=== PATIENT | female | born 1930 | race Caucasian/White ===

== ENCOUNTER 2017-03-05 21:24 | Observation (INO) | payer MEDICARE ==
[~2017-03-05] VITALS: Ht 149.9 cm; Wt 78.6 kg
[~2017-03-05 21:24] MED LIST: ACET1TAB17 PO; ACET65TA OR; CEFD1CAP8 PO; CEPH2CAP PO; COLA100C2 PO; COUM1TAB14 PO; COUM2TAB22 PO; COUM6TAB PO; COUMADIN PO; DEMA20TA PO; GLIP5TAB8 PO; GLUC5TAB3 OR; KLOR1TAB77 PO; LANO0.1211 PO; LISI2.5T PO; MAGN500T2 PO; OMEP20TA PO; OMEP20TA7 PO; PERC5TAB12 PO; POTA20TA PO; PRAV40TA PO; PRAV80TA PO; SENO8.6T10 PO; SYMB80AE INH; TORS20TA2 PO; omnicef PO
[2017-03-05] MEDS ORDERED: METF500T13 PO (21:39)
[2017-03-05] MEDS ORDERED: CALC600T57 PO (21:39)
[2017-03-05] MEDS ORDERED: VITA500079 PO (21:39)
[2017-03-05 22:28] LABS: BASO % 0.3 % (0.0-1.0); EOS # 0.2 K/mm3 (0.0-0.50); LARGE UNSTAINED CELL # 0.5 K/mm3 (0.0-0.4); LARGE UNSTAINED CELL % 4.6 % (0.0-4.0); LYMPH # 2.4 K/mm3 (1.5-4.5); MEAN CORPUSCULAR HEMOGLOBIN 30.7 pg (27.0-33.0); MEAN CORPUSCULAR HGB CONC 31.7 g/dl (32.0-36.5); MEAN CORPUSCULAR VOLUME 97.1 fl (80.0-96.0); MONO # 0.9 K/mm3 (0.0-0.8); MONO % 8.3 % (0.0-5.0); NEUTROPHILS # 6.4 K/mm3 (1.8-7.7); NEUTROPHILS % 61.8 % (36.0-66.0); PLATELET COUNT, AUTOMATED 346 k/mm3 (150-450); RED CELL DISTRIBUTION WIDTH 13.2 % (11.5-14.5); WHITE BLOOD COUNT 10.3 K/mm3 (4.0-10.0)
[2017-03-05] MEDS ORDERED: NS 500 ML IV ONE (22:30)
[2017-03-05 22:34] LABS: ANION GAP 6 MEQ/L (8-16); BLOOD UREA NITROGEN 25 MG/DL (7-18); CALCIUM LEVEL 8.2 MG/DL (8.8-10.2); CARBON DIOXIDE LEVEL 34 MEQ/L (21-32); CHLORIDE LEVEL 99 MEQ/L (98-107); CREATININE FOR GFR 0.92 MG/DL (0.55-1.02); GLOMERULAR FILTRATION RATE > 60.0 (>32); GLUCOSE, FASTING 100 MG/DL (83-110); POTASSIUM SERUM 3.9 MEQ/L (3.5-5.1); SODIUM LEVEL 139 MEQ/L (136-145)
[2017-03-06] MEDS ORDERED: ACETAMINOPHEN 325 MG TAB PO ONE (00:15)
[2017-03-06] MEDS ORDERED: GLIM1TAB PO (00:18)
[2017-03-06] MEDS ORDERED: CALCTAB52 PO (00:18)
[2017-03-06] MEDS ORDERED: ALBU17IN INH (00:18)
[2017-03-06] MEDS ORDERED: POTA10CA PO (00:18)
[2017-03-06] MEDS ORDERED: VITA100066 PO (00:18)
[2017-03-06] MEDS ORDERED: NS 1,000 ML IV SCH (02:39)
[2017-03-06] MEDS ORDERED: ACETAMINOPHEN TAB 650MG DOSE (2X325MG) PO PRN (02:45)
[2017-03-06] MEDS ORDERED: BISACODYL 5 MG TAB PO PRN (02:45)
[2017-03-06] MEDS ORDERED: GLUCOSE 4 GM CHEW TABLET PO PRN (02:45)
[2017-03-06] MEDS ORDERED: ALBUTEROL 90 MCG/ACT 8GM HFA INHALER INH PRN (02:45)
[2017-03-06] MEDS ORDERED: ONDANSETRON 4MG/2ML VIAL (J2405) IV PRN (02:45)
[2017-03-06] MEDS ORDERED: GLUCAGON FOR INJ 1 MG VIAL (J1610) SC PRN (02:45)
[2017-03-06] MEDS ORDERED: DEXTROSE 50% 50 ML SYRINGE IV PRN (02:45)
--- NOTE | 2017-03-06 03:50 | REPUSA ---
CLINICAL HISTORY: Edema. COMMENTS: Real time sonography with duplex doppler of the extremities bilaterally was performed with attention to the major deep venous structures. Evaluation reveals the common femoral, superficial femoral and popliteal veins bilaterally to be comp letely compressible without intraluminal thrombus. There is normal spontaneous phasic flow and augmen tation in all deep veins. The greater saphenous/common femoral vein junctions are patent bilaterally. IMPRESSION: No evidence of DVT in the lower extremities bilaterally. Thank you for your kind referral of this patient.
[2017-03-06 04:00] VITALS: BP 125/66
--- NOTE | 2017-03-06 04:10 | REPUSA ---
CLINICAL HISTORY: Prior history of intracerebral hemorrhage. TECHNIQUE: Multiple axial CT images were obtained through the brain without IV contrast material. COMMENTS: Left frontal, temporal and insular chronic encephalomalacia. There is normal configuration of sella turcica. There are no intra or extra-axial collections. There is no mass effect or midline shift. There is no evidence of hematoma formation. No hydrocephalus is p resent. The ventricles are symmetrical. No abnormal calcifications are present. There is diffuse age-appropriate cerebellar and cerebral atrophy with proportionally dilated ventricl es and cortical sulci. There are bilateral periventricular and subcortical white matter hypolucencies compatible with mild c hronic microvascular disease. Otherwise, no significant focal abnormalities are seen either in the posterior fossa or supratentoria l compartment. IMPRESSION: 1. Age-appropriate cerebellar and cerebral atrophy. 2. Mild chronic microvascular disease. Left frontal, temporal and insular chronic encephalomalacia. 3. No evidence of acute intracranial pathology. Thank you for your kind referral of this patient.
[2017-03-06 05:57] LABS: INR 1.76
[2017-03-06 06:32] LABS: THYROXINE (T4) 8.6 UG/DL (4.5-12.0)
[2017-03-06] MEDS ORDERED: HumaLOG INSULIN (NovoLOG) PER UNIT SC SCH ×2 (07:30→21:00)
[2017-03-06] MEDS: HumaLOG INSULIN (NovoLOG) PER UNIT SC SCH ×2 (07:30→11:34)
[2017-03-06 07:45] VITALS: BP 122/65
--- NOTE | 2017-03-06 08:07 | HPE ---
DATE OF ADMISSION: 03/05/2017 PRIMARY CARE PHYSICIAN: Dr. Mert Mercado. CHIEF COMPLAINT: Tremor of upper extremity bilaterally, lower extremity pain and shortness of breath. HISTORY OF PRESENT ILLNESS: Ms. Dent is a 86-year-old female with multiple past medical history who presented to [facility] Emergency Room due to experiencing one episode of tremor as well as shortness of breath and lower extremity pain. The patient experienced that the tremor and shortness of breath happened simultaneously and they lasted about five minutes however she mentioned that she was anxious when the tremor started and she believes her dyspnea related to her anxiety. Tremor involved both upper extremities and she was in the sitting position when episode started. this is new for her. The patient denies fever, chills or night sweats. The patient does not use alcoholic beverages or new changes in her medications. The patient denies any altered mental status or loss of consciousness before, during or after this episode. She also denies tachycardia, palpitations or chest pain as well as weakness in both upper and lower extremities.The patient expressed that after the episode, her suggested that it is better for the patient to come to the emergency room (ER) for evaluation. PAST MEDICAL HISTORY: 1. Diabetes mellitus type 2. 2. History of left basal ganglia cerebrovascular accident (CVA) in 2011. 3. Paroxysmal atrial fibrillation, anticoagulated with warfarin. 4. Hypercholesterolemia. 5. Gastroesophageal reflux disease (GERD). 6. Hiatal hernia. 7. History of right breast cancer treated with lumpectomy and radiation. 8. Osteoarthritis of lumbar spine. 9. Echocardiogram May 2015, left ventricular systolic function normal, estimated pulmonary artery (PA) systolic pressure moderately elevated. No intracardiac masses or vegetations or pericardial effusion. Mitral valve shows trace of insufficiency. Tricuspid valve shows mild insufficiency. PAST SURGICAL HISTORY: 1. Transabdominal hysterectomy, bilateral oophorectomy, and appendectomy 1971. 2. Colonoscopy with polypectomy 1994. 3. Laparoscopic cholecystectomy 1995. 4. Right breast lumpectomy with axillary lymph node (LN) resection in 2004. 5. Colonoscopy with polypectomy 2015. 6. Incisional hernia repair 2006. 7. Right knee replacement 01/13/2017. ALLERGIES: No known drug allergies. SOCIAL HISTORY: The patient lives with her . The patient has traveled all through the [place]; however, the patient cannot remember where she had traveled, and the patient quit smoking in 1984. However, the patient cannot remember how long she was a smoker before she quit smoking. The patient denies illicit drug use. The patient denies alcohol usage. The patient does not have any pets at home. FAMILY HISTORY: The patient had 12 brothers and sisters; however, only four of her siblings are alive. They due to cardiac diseases as well as cancer. The patient's father at age 70 due to emphysema. He was a smoker. The patient's mother at age 89 due to old age. The patient has seven children who are healthy; however, one of the children committed suicide. HOME MEDICATIONS: - acetaminophen 650 mg by mouth every four hours as needed for pain/fever - Ventolin HFA two puffs inhaler every four hours as needed for shortness of breath - calcium 500-250-200 one tablet by mouth daily - vitamin D 5000 units by mouth every evening - glimepiride 1 mg by mouth daily - metformin 500 mg by mouth twice a day - potassium chloride 20 mEq by mouth daily - pravastatin 80 mg by mouth daily - furosemide 20 mg by mouth daily - warfarin 4 mg by mouth at bedtime REVIEW OF SYSTEMS: GENERAL: The patient denies fevers, chills, night sweats, weight lost or weight gain. HEENT: The patient denies acute vision or hearing changes. The patient denies headache, lightheadedness or dizziness. The patient also denies problem with chewing food or sinusitis. NECK: The patient denies lumps, bumps, or decreased range of motion of her neck. HEART: The patient denies palpitations, racing or skipping heartbeats, chest pain. LUNGS: The patient expressed that during the episode of upper extremity tremor, she had dyspnea which she believe it was related to being anxious. ABDOMEN: The patient denies any abdominal pain, nausea, vomiting, diarrhea, constipation, melena, hematochezia, hemoptysis. NEUROLOGIC: The patient does not have history of transient ischemic attack (TIA) , or seizure-type activities; however, the patient had one episode of tremor of upper extremities. PHYSICAL EXAMINATION: VITAL SIGNS: Temperature 98.2, pulse 86, respiratory rate 18, pulse oximetry 98% on room air. GENERAL APPEARANCE: The patient was lying in bed in no acute distress. The patient was awake, alert, and oriented to time, place and person. HEENT: Normocephalic, atraumatic. Pupils are equal and reactive to light. Oral mucosa is moist. NECK: Soft, supple. HEART: Irregular irregular. LUNGS: Clear breath sounds bilaterally. Good air movement. ABDOMEN: Soft, nontender. Positive bowel sounds in all quadrants. EXTREMITIES: no lower extremity edema, +2 pulses in both lower extremities. The patient has normal range of motion in both upper and lower extremities. NEUROLOGIC: Cranial nerves II through XII intact. No focal deficits and normal sensation in both upper and lower extremities. LABORATORY DATA: White blood cells 10.3, red blood cells 4.12, hemoglobin 12.7, hematocrit 40, MCV 97.1, MCH 30.7, MCHC 31.7, RDW 13.2, platelet count 346, neutrophil percentage 61.8, lymphocyte percentage 23, monocyte percentage 8.3, eosinophil percentage 2 , basophil percentage 0.3, leukocyte percentage 4.6. Sodium 139, potassium 3.9, chloride 99, carbon dioxide 34, anion gap 6, BUN 25, creatinine 0.92, glomerular filtration rate more than 60, fasting glucose 100, calcium 8.1, total creatine kinase 78, CK-MB 1, CK-MB relative index 1.28. Troponin I less than 0.02. TSH 4.240. UA: Urine color straw, urine appearance clear. Urine pH 7, urine specific gravity 1.005, urine protein negative, urine glucose negative, urine ketones negative, urine blood negative, urine nitrite negative, urine bilirubin negative, urine urobilinogen 0.2, urine leukocyte esterase trace, urine white blood cells 2, urine red blood cells 1, urine hyaline casts zero, urine bacteria negative, urine squamous epithelial cells 1. IMAGING: Doppler ultrasound of the lower extremities bilaterally: No evidence of DVT of the lower extremities. CT of the head without contrast which shows age-appropriate cerebral and cerebellar atrophy, mild chronic microvascular disease, left frontotemporal and insular encephalomalacia. No evidence of acute intracranial pathology. ASSESSMENT AND PLAN: 1. Tremor of upper extremities bilaterally. due to history of diabetes, this could be related of abnormal glucose level however at the time of admission patient glucose level was in normal range. other possibilities includes electrolyte abnormalities vs abnormal thyroid function. The patient has abnormal thyroid stimulating hormone (TSH) level therefore I have ordered thyroid profile and repeating TSH and the results are pending at this time. base on her presentation, other possibilities such as parkinsonian tremor, TIA, hemorrhage or central tumor is low however I have ordered head CT was ordered and did not show any acute pathology. The patient was admitted for observation. At this time, the patient is stable. 2. Diabetes mellitus type 2. At this point, we will continue the patient on consistent carbohydrate diet. At home, the patient is on glipizide and metformin. However, I have stopped these medications and start the patient on sliding scale. 3. Gastroesophageal reflux disease (GERD). The patient is asymptomatic at this time. 4. Paroxysmal atrial fibrillation. The patient is anticoagulated with warfarin. The patient's heart rate is controlled. We will continue monitoring the patient' s prothrombin time/international normalized ratio (PT/INR) as well as magnesium level. 5. Hypercholesterolemia. The patient is on high-intensity statin. 6. Deep venous thrombosis (DVT) prophylaxis. The patient is on warfarin. 7. Vitamin D deficiency. The patient is on 5000 units of vitamin D by mouth every evening. 8. Hypertension. continue with home medication. My preceptor for this patient encounter was Dr. Anum Black. The preceptor was physically present in the building during the encounter and was fully available as needed. All aspects of the patient interview, examination, medical decision making process, and medical care plan development were reviewed and approved by the preceptor. The preceptor is aware and concurs with the plan as stated in the body of this note and will attest to such by his/her co-signature. KAMILLA
[2017-03-06] MEDS ORDERED: POTASSIUM CHLORIDE 10 MEQ SR TABLET PO SCH (09:00)
[2017-03-06] MEDS ORDERED: PRAVASTATIN 20 MG TAB PO SCH (09:00)
[2017-03-06] MEDS ORDERED: TORSEMIDE 20 MG TAB PO SCH (09:00)
--- NOTE | 2017-03-06 09:26 | IPN ---
DATE: 03/06/2017 Patient seen and examined at the bedside. Chart has been reviewed. She has no recurrent complaints of tremors. No shortness of breath, palpitations, lightheadedness, dizziness. No nausea, vomiting, abdominal pain, diarrhea, dysuria, urgency, frequency, fever, chills, cough. No other issues per nursing. Telemetry is unremarkable. Ventricular rate of 84 to 94, atrial fibrillation, irregularly irregular rhythm. Afebrile overnight with T-max 98.2. Current temperature 97.2, pulse 84, respiratory rate 18, blood pressure 125/66, 94% on room air. Generally, patient is awake, alert, oriented to person, place and time, answering questions appropriately. Face is symmetric. No facial asymmetry. No slurring of speech. Speech is fluent. Anicteric sclera, no jaundice. Pupils are round, reactive to light and accommodation. Extraocular muscles are intact. Lungs are clear to auscultation, no wheezing, rales or rhonchi. Heart: S1, S2. Irregularly irregular. Abdomen: Soft, nontender, nondistended, positive bowel sounds. Extremities: No cyanosis, clubbing or pitting edema. Neurologically, patient is awake, alert, oriented times three. Motor function is 5/5 times four extremities. No sensory disturbance. No dysmetria finger to nose testing. Pupils are equally round and reactive to light and accommodation. Tongue is midline. LAB DATA 03/05: CBC, metabolic panel have been reviewed. TSH of 3.64. Free T4 index 2.8, T3 uptake of 33. CT of the head: Age appropriate cerebellar and cerebral atrophy, mild chronic microvascular disease, left temporofrontal insular chronic encephalomalacia, no evidence of acute intracranial pathology. Venous Doppler bilateral lower extremities: No evidence of deep venous thrombosis (DVT) bilaterally. ASSESSMENT AND PLAN: This is an 86-year-old female history of diabetes, atrial fibrillation, history of left basal ganglia cerebrovascular accident (CVA) 05/2012 on chronic anticoagulation with warfarin, hypercholesterolemia, reflux, hiatal hernia, right breast cancer treated with lumpectomy and radiation followed by Aromasin, discontinued 09/2010, osteoarthritis of the lumbar spine. Echo 2014 shows left ventricular function is normal, mild insufficiency at the tricuspid valve, transabdominal hysterectomy, polypectomy, cholecystectomy, incisional hernia repair, presents to the emergency room complaining of tremors, CT of the head was negative. Glucose level was 122. She was placed on observation in progressive care unit (PCU). Telemetry was unremarkable. CURRENT ISSUES: 1. Tremors have resolved. Patient's glucose level was normal at 122 on admission. Creatinine, CBC, metabolic panel, CT of the head are all negative. No fevers or chills. Await physical therapy (PT) clearance prior to discharge home. 2. Atrial fibrillation. History of cerebrovascular accident (CVA) on chronic warfarin, resume home dose of Coumadin. 3. Type 2 diabetes. Consistent carbohydrate diet, insulin sliding scale with coverage. 4. History of dyslipidemia, chronic. DISPOSITION: If passes a home safety evaluation and no recurrent tremors, may have outpatient followup with neurology.
--- NOTE | 2017-03-06 14:38 | ECGEPIP ---
Stationary ECG Study [facility] - ED Test Date: 2017-03-05 Pat Name: MYRANDA ALLEN Department: Room: [place] [address] Gender: F Visual Specialist: alexa : 1930 Requested By: CELESTE Chao Order Number: [id number] Reading MD: Kaushik Romero Measurements Intervals [place] Rate: 81 P: [place]: 0 QRS: -50 QRSD: 94 T: 38 QT: 383 QTc: 445 Interpretive Statements ATRIAL FIBRILLATION LAD LEFT ANTERIOR FASCICULAR BLOCK PRWP SIMILAR TO 04/16/15 Electronically Signed On 03-06-2017 14:38:40 EDT by Kaushik Romero
--- NOTE | 2017-03-06 14:40 | ECGEPIP ---
Stationary ECG Study 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
[2017-03-06] MEDS ORDERED: WARFARIN SOD 4 MG TAB PO SCH (17:00)
[2017-03-06] MEDS ORDERED: VITAMIN D 1,000 INTERNATIONAL UNITS TABLET PO SCH (21:00)
== END 2017-03-06 13:24 | disposition home or self-care (01) ==
LOC: M ED 22:54 → M ED INP 22:55 → M PCU 03-06 03:59
PROVIDERS: ADMIT Internal Medicine; ATTEND General Practice
DX: R25.1 Tremor, unspecified (principal); E11.9 Type 2 diabetes mellitus without complications; I48.0 Paroxysmal atrial fibrillation; Z86.73 Personal history of transient ischemic attack (TIA), and cerebral infarction without residual deficits; I95.1 Orthostatic hypotension; R06.02 Shortness of breath; M79.609 Pain in unspecified limb; M47.816 Spondylosis without myelopathy or radiculopathy, lumbar region; I10 Essential (primary) hypertension; I50.9 Heart failure, unspecified; E78.5 Hyperlipidemia, unspecified; K21.9 Gastro-esophageal reflux disease without esophagitis; K44.9 Diaphragmatic hernia without obstruction or gangrene; Z85.3 Personal history of malignant neoplasm of breast; Z92.3 Personal history of irradiation; E55.9 Vitamin D deficiency, unspecified; Z87.891 Personal history of nicotine dependence; Z79.899 Other long term (current) drug therapy; Z79.01 Long term (current) use of anticoagulants; Z79.84 Long term (current) use of oral hypoglycemic drugs
CPT/HCPCS: 36415; 70450; 80048; 81001; 82550; 82553; 84436; 84443; 84479; 84484; 85025; 85610; 93005; 93970; 97161; 99285; G0378; G8978; G8979; G8980

== ENCOUNTER → 2017-03-15 | Outpatient (REF) | payer MEDICARE ==
[~2017-03-15] MED LIST changes: +ACET-654 PO; -ACET1TAB17 PO; +ALBU17IN INH; +CALC600T57 PO; +CALCTAB52 PO; +COUM2TAB10 PO; -COUM2TAB22 PO; +GLIM1TAB PO; +METF500T PO; -PERC5TAB12 PO; +PERC5TAB6 PO; +POTA10CA PO; +VITA100066 PO; +[UNRECOGNIZED DRUG - CODE] PO
== END ==
LOC: M SFHCPLAZ 11:29
PROVIDERS: ATTEND Internal Medicine
DX: E11.9 Type 2 diabetes mellitus without complications (principal); I48.0 Paroxysmal atrial fibrillation

== ENCOUNTER → 2017-03-16 | Outpatient (CLI) | payer MEDICARE ==
[2017-03-16 09:49] LABS: INR 1.78
== END ==
LOC: M LAB 09:03
PROVIDERS: ATTEND Internal Medicine
DX: E11.9 Type 2 diabetes mellitus without complications (principal); I48.0 Paroxysmal atrial fibrillation

== ENCOUNTER → 2017-06-11 | Outpatient (REF) | payer MEDICARE ==
[~2017-06-11] MED LIST changes: -ACET-654 PO; +ACET1TAB17 PO; -COUM2TAB10 PO; +COUM2TAB22 PO; -METF500T PO; +METF500T13 PO; +PERC5TAB12 PO; -PERC5TAB6 PO; +VITA500079 PO; -[UNRECOGNIZED DRUG - CODE] PO
[2017-06-11 11:24] LABS: MEAN CORPUSCULAR HEMOGLOBIN 29.5 pg (27.0-33.0); MEAN CORPUSCULAR HGB CONC 32.3 g/dl (32.0-36.5); MEAN CORPUSCULAR VOLUME 91.2 fl (80.0-96.0); RED CELL DISTRIBUTION WIDTH 13.1 % (11.5-14.5); WHITE BLOOD COUNT 8.3 K/mm3 (4.0-10.0)
[2017-06-11 11:39] LABS: ANION GAP 4 MEQ/L (8-16); BLOOD UREA NITROGEN 22 MG/DL (7-18); CALCIUM LEVEL 9.2 MG/DL (8.8-10.2); CARBON DIOXIDE LEVEL 37 MEQ/L (21-32); CHLORIDE LEVEL 101 MEQ/L (98-107); CREATININE FOR GFR 0.76 MG/DL (0.55-1.02); GLOMERULAR FILTRATION RATE > 60.0 (>32); GLUCOSE, FASTING 141 MG/DL (83-110); POTASSIUM SERUM 3.9 MEQ/L (3.5-5.1); SODIUM LEVEL 142 MEQ/L (136-145)
[2017-06-11 11:40] LABS: ALBUMIN 3.1 GM/DL (3.2-5.2); ALBUMIN/GLOBULIN RATIO 0.76 (1.00-1.93); ALKALINE PHOSPHATASE 99 U/L (45-117); ALT/SGPT 19 U/L (12-78); AST/SGOT 14 U/L (15-37); BILIRUBIN,TOTAL 0.5 MG/DL (0.2-1.0); CHOLESTEROL LEVEL 167 MG/DL (<200); TOTAL PROTEIN 7.2 GM/DL (6.4-8.2); TRIGLYCERIDES LEVEL 112 MG/DL (<150)
== END ==
LOC: M SFHCPLAZ 09:24
PROVIDERS: ATTEND Internal Medicine
DX: E11.9 Type 2 diabetes mellitus without complications (principal); Z85.3 Personal history of malignant neoplasm of breast; E78.00 Pure hypercholesterolemia, unspecified

== ENCOUNTER → 2018-03-12 | Outpatient (REF) | payer MEDICARE ==
[2018-03-12 11:40] LABS: HEMATOCRIT 41.2 % (36.0-47.0); HEMOGLOBIN 12.7 g/dl (12.0-15.5); MEAN CORPUSCULAR HEMOGLOBIN 29.1 pg (27.0-33.0); MEAN CORPUSCULAR HGB CONC 30.8 g/dl (32.0-36.5); MEAN CORPUSCULAR VOLUME 94.5 fl (80.0-96.0); PLATELET COUNT, AUTOMATED 335 10^3/uL (150-450); RED BLOOD COUNT 4.36 10^6/uL (4.00-5.40); RED CELL DISTRIBUTION WIDTH 13.2 % (11.5-14.5); WHITE BLOOD COUNT 10.6 10^3/uL (4.0-10.0)
[2018-03-12 12:17] LABS: ALBUMIN 2.9 GM/DL (3.2-5.2); ALBUMIN/GLOBULIN RATIO 0.81 (1.00-1.93); ALKALINE PHOSPHATASE 86 U/L (45-117); ALT/SGPT 30 U/L (12-78); ANION GAP 4 MEQ/L (8-16); AST/SGOT 20 U/L (7-37); BILIRUBIN,TOTAL 0.3 MG/DL (0.2-1.0); BLOOD UREA NITROGEN 14 MG/DL (7-18); CALCIUM LEVEL 9.1 MG/DL (8.8-10.2); CARBON DIOXIDE LEVEL 34 MEQ/L (21-32); CHLORIDE LEVEL 104 MEQ/L (98-107); CHOLESTEROL LEVEL 149 MG/DL (<200); CHOLESTEROL RISK RATIO 3.634 (<5); CREATININE FOR GFR 0.73 MG/DL (0.55-1.30); GLOMERULAR FILTRATION RATE > 60.0 (>32); GLUCOSE, FASTING 113 MG/DL (70-100); HDL CHOLESTEROL 41 MG/DL (>40); LDL CHOLESTEROL 74.6 MG/DL (<100); NON-HDL-C 108 MG/DL; POTASSIUM SERUM 4.3 MEQ/L (3.5-5.1); SODIUM LEVEL 142 MEQ/L (136-145); TOTAL PROTEIN 6.5 GM/DL (6.4-8.2); TRIGLYCERIDES LEVEL 167 MG/DL (<150)
[2018-03-12 13:10] LABS: ESTIMATED AVERAGE GLUCOSE 140 MG/DL (60-110); HEMOGLOBIN A1c 6.5 %
== END ==
LOC: M SFHCPLAZ 08:56
DX: Z85.3 Personal history of malignant neoplasm of breast (principal); E11.9 Type 2 diabetes mellitus without complications; E78.00 Pure hypercholesterolemia, unspecified
CPT/HCPCS: 80053

== ENCOUNTER 2018-04-25 09:35 | Inpatient (IN) | payer MEDICARE ==
[2018-04-25 10:49] LABS: VENOUS HCO3 28.8 MEQ/L (23.0-27.0); VENOUS O2 SATURATION 62.7 % (60.0-80.0); VENOUS PARTIAL PRESSURE CO2 61.8 mmHg (38.0-50.0); VENOUS PARTIAL PRESSURE O2 35.1 mmHg (30.0-50.0); VENOUS PH 7.287 UNITS (7.330-7.430); VENOUS STANDARD HCO3 24.6 MEQ/L; VENOUS TOTAL CO2 30.7 MEQ/L (24.0-28.0)
[2018-04-25 10:52] LABS: BASO % 0.2 % (0.0-1.0); EOS # 0.1 10^3/uL (0.0-0.50); EOS % 0.8 % (0.0-3.0); HEMOGLOBIN 11.4 g/dl (12.0-15.5); IMMATURE GRANULOCYTE % 0.3 % (0-3.0); LYMPH % 8.1 % (24.0-44.0); MEAN CORPUSCULAR HEMOGLOBIN 29.8 pg (27.0-33.0); MEAN CORPUSCULAR HGB CONC 31.7 g/dl (32.0-36.5); MONO # 0.8 10^3/uL (0.0-0.8); MONO % 6.4 % (0.0-5.0); NEUTROPHILS # 10.8 10^3/uL (1.8-7.7); NEUTROPHILS % 84.2 % (36.0-66.0); PLATELET COUNT, AUTOMATED 214 10^3/uL (150-450); RED BLOOD COUNT 3.83 10^6/uL (4.00-5.40); RED CELL DISTRIBUTION WIDTH 13.8 % (11.5-14.5); WHITE BLOOD COUNT 12.9 10^3/uL (4.0-10.0)
[2018-04-25 11:05] LABS: INR 1.92; PROTHROMBIN TIME 22.6 SECONDS (12.4-14.5)
[2018-04-25 11:22] LABS: LACTIC ACID SEPSIS PROTOCOL 2.6 MMOL/L (0.4-2.0)
[2018-04-25] MEDS: ALBUTEROL SULFATE 2.5 MG/0.5 ML INH NEB SOLN INH ×3 (11:27→11:53)
[2018-04-25 11:31] LABS: ABG BASE EXCESS -0.3 (-2.0-2.0); ABG HCO3 24.7 MEQ/L (22.0-26.0); ABG O2 SATURATION 96.7 % (95.0-99.0); ABG PARTIAL PRESSURE CO2 41.7 mmHg (35.0-45.0); ABG PARTIAL PRESSURE O2 87.7 mmHg (75.0-100.0); ABG STANDARD HCO3 24.2 MEQ/L (22.0-26.0)
[2018-04-25 11:40] LABS: ALKALINE PHOSPHATASE 90 U/L (45-117); ALT/SGPT 18 U/L (12-78); AST/SGOT 14 U/L (7-37); BILIRUBIN,DIRECT 0.2 MG/DL (0.0-0.2); BILIRUBIN,TOTAL 0.5 MG/DL (0.2-1.0); BLOOD UREA NITROGEN 11 MG/DL (7-18); CALCIUM LEVEL 8.1 MG/DL (8.8-10.2); CARBON DIOXIDE LEVEL 26 MEQ/L (21-32); CHLORIDE LEVEL 106 MEQ/L (98-107); CPK CREATINE PHOSPHOKINASE 73 U/L (26-192); GLUCOSE, FASTING 197 MG/DL (70-100); POTASSIUM SERUM 4.4 MEQ/L (3.5-5.1); TOTAL PROTEIN 6.6 GM/DL (6.4-8.2); TROPONIN I < 0.02 NG/ML (< 0.10)
[2018-04-25 11:46] LABS: CK-MB VALUE MASS 1.8 NG/ML (<3.6); MB/CK RELATIVE INDEX 2.46 (< OR =4); NT-PRO BNP 2681 PG/ML (<450)
[2018-04-25] MEDS ORDERED: ISOVUE-370 76% 100ML VIAL (Q9967) As Ordered (12:01)
[2018-04-25 13:38] LABS: ALBUMIN 2.9 GM/DL (3.2-5.2); ALBUMIN/GLOBULIN RATIO 0.78 (1.00-1.93); ANION GAP 9 MEQ/L (8-16); SODIUM LEVEL 141 MEQ/L (136-145)
[2018-04-25] MEDS: FUROSEMIDE 20 MG/2 ML VIAL (J1940) IV ×3 (14:00→20:00)
[2018-04-25 14:02] LABS: MAGNESIUM LEVEL 1.7 MG/DL (1.8-2.4); PHOSPHORUS LEVEL 3.1 MG/DL (2.5-4.9)
[2018-04-25] MEDS ORDERED: GLUCOSE 4 GM CHEW TABLET PO (14:45)
[2018-04-25] MEDS ORDERED: GLUCAGON FOR INJ 1 MG VIAL (J1610) SC (14:45)
[2018-04-25] MEDS ORDERED: IPRATROPIUM 0.5MG/ALBUTEROL 2.5MG INH SOL UD 3ML (DUONEB)(J7620) NEB (14:45)
[2018-04-25] MEDS ORDERED: DEXTROSE 50% 50 ML SYRINGE IV (14:45)
[2018-04-25] MEDS: ENOXAPARIN 100MG/1ML SYRINGE (J1650) SC (14:56)
[2018-04-25] MEDS: DIGOXIN INJ 0.5 MG/2 ML AMP (J1160) IV (15:17)
[2018-04-25] MEDS: IPRATROPIUM 0.5MG/ALBUTEROL 2.5MG INH SOL UD 3ML (DUONEB)(J7620) NEB ×2 (15:58→21:06)
[2018-04-25 16:08] LABS: CK-MB VALUE MASS 1.4 NG/ML (<3.6); CPK CREATINE PHOSPHOKINASE 72 U/L (26-192); MB/CK RELATIVE INDEX 1.94 (< OR =4)
[2018-04-25 17:06] LABS: BEDSIDE GLUCOSE 376 MG/DL (83-110)
[2018-04-25] MEDS: WARFARIN SOD 3 MG TAB PO (17:11)
[2018-04-25] MEDS: HumaLOG INSULIN (NovoLOG) PER UNIT SC ×2 (17:12→21:42)
[2018-04-25 20:59] LABS: BEDSIDE GLUCOSE 334 MG/DL (83-110)
[2018-04-25] MEDS: MAG SULF 1GM/100ML (MAG RUN) 1 GM in APPROPRIATE DILUENT 1 EA IV (23:08)
[2018-04-25 23:23] LABS: CK-MB VALUE MASS 1.7 NG/ML (<3.6); CPK CREATINE PHOSPHOKINASE 67 U/L (26-192); MB/CK RELATIVE INDEX 2.53 (< OR =4)
[2018-04-26] MEDS: MAG SULF 1GM/100ML (MAG RUN) 1 GM in APPROPRIATE DILUENT 1 EA IV
[2018-04-26] MEDS: FUROSEMIDE 20 MG/2 ML VIAL (J1940) IV ×6 (04:00→20:18)
[2018-04-26] MEDS: ENOXAPARIN 80 MG/0.8 ML SYRINGE (J1650) SC (04:07)
[2018-04-26 04:46] LABS: BASO % 0.1 % (0.0-1.0); EOS % 0.2 % (0.0-3.0); HEMATOCRIT 33.4 % (36.0-47.0); HEMOGLOBIN 10.5 g/dl (12.0-15.5); IMMATURE GRANULOCYTE % 0.5 % (0-3.0); LYMPH # 0.6 10^3/uL (1.5-4.5); MEAN CORPUSCULAR HEMOGLOBIN 29.6 pg (27.0-33.0); MEAN CORPUSCULAR HGB CONC 31.4 g/dl (32.0-36.5); MEAN CORPUSCULAR VOLUME 94.1 fl (80.0-96.0); MONO # 0.6 10^3/uL (0.0-0.8); MONO % 4.8 % (0.0-5.0); NEUTROPHILS # 10.8 10^3/uL (1.8-7.7); NEUTROPHILS % 89.4 % (36.0-66.0); PLATELET COUNT, AUTOMATED 201 10^3/uL (150-450); RED BLOOD COUNT 3.55 10^6/uL (4.00-5.40); RED CELL DISTRIBUTION WIDTH 13.6 % (11.5-14.5); WHITE BLOOD COUNT 12.1 10^3/uL (4.0-10.0)
[2018-04-26 04:56] LABS: INR 2.27; PROTHROMBIN TIME 25.9 SECONDS (12.4-14.5)
[2018-04-26 05:02] LABS: ALBUMIN 2.7 GM/DL (3.2-5.2); ALBUMIN/GLOBULIN RATIO 0.66 (1.00-1.93); ALKALINE PHOSPHATASE 78 U/L (45-117); ALT/SGPT 16 U/L (12-78); ANION GAP 8 MEQ/L (8-16); AST/SGOT 9 U/L (7-37); BILIRUBIN,TOTAL 0.2 MG/DL (0.2-1.0); BLOOD UREA NITROGEN 21 MG/DL (7-18); CALCIUM LEVEL 8.3 MG/DL (8.8-10.2); CARBON DIOXIDE LEVEL 29 MEQ/L (21-32); CHLORIDE LEVEL 103 MEQ/L (98-107); CREATININE FOR GFR 0.87 MG/DL (0.55-1.30); GLOMERULAR FILTRATION RATE > 60.0 (>32); GLUCOSE, FASTING 199 MG/DL (70-100); MAGNESIUM LEVEL 2.4 MG/DL (1.8-2.4); POTASSIUM SERUM 4.6 MEQ/L (3.5-5.1); SODIUM LEVEL 140 MEQ/L (136-145); TOTAL PROTEIN 6.8 GM/DL (6.4-8.2)
[2018-04-26 07:11] LABS: LACTIC ACID SEPSIS PROTOCOL 1.7 MMOL/L (0.4-2.0)
[2018-04-26 07:12] LABS: CK-MB VALUE MASS 1.9 NG/ML (<3.6); CPK CREATINE PHOSPHOKINASE 71 U/L (26-192); MB/CK RELATIVE INDEX 2.67 (< OR =4)
[2018-04-26] MEDS: DIGOXIN 0.125 MG TAB PO (07:44)
[2018-04-26] MEDS: PRAVASTATIN 20 MG TAB PO (07:44)
[2018-04-26] MEDS: HumaLOG INSULIN (NovoLOG) PER UNIT SC ×4 (07:45→20:18)
[2018-04-26] MEDS: IPRATROPIUM 0.5MG/ALBUTEROL 2.5MG INH SOL UD 3ML (DUONEB)(J7620) NEB ×4 (08:47→20:46)
[2018-04-26 11:29] LABS: BEDSIDE GLUCOSE 90 MG/DL (83-110)
[2018-04-26] MEDS: WARFARIN SOD 4 MG TAB PO (15:57)
[2018-04-26 17:19] LABS: BEDSIDE GLUCOSE 132 MG/DL (83-110)
[2018-04-26 20:18] LABS: BEDSIDE GLUCOSE 119 MG/DL (83-110)
[2018-04-27] MEDS: FUROSEMIDE 20 MG/2 ML VIAL (J1940) IV ×4 (03:50→12:07)
[2018-04-27] MEDS ORDERED: SLF 3 ML SYR IV (06:00)
[2018-04-27] MEDS: SLF 3 ML SYR IV ×3 (06:00→21:09)
[2018-04-27 06:29] LABS: BASO % 0.1 % (0.0-1.0); EOS % 0.2 % (0.0-3.0); HEMATOCRIT 34.9 % (36.0-47.0); IMMATURE GRANULOCYTE % 0.5 % (0-3.0); LYMPH # 1.4 10^3/uL (1.5-4.5); LYMPH % 9.5 % (24.0-44.0); MEAN CORPUSCULAR HEMOGLOBIN 29.2 pg (27.0-33.0); MEAN CORPUSCULAR HGB CONC 31.5 g/dl (32.0-36.5); MEAN CORPUSCULAR VOLUME 92.6 fl (80.0-96.0); MONO # 1.3 10^3/uL (0.0-0.8); MONO % 9.1 % (0.0-5.0); NEUTROPHILS # 11.8 10^3/uL (1.8-7.7); NEUTROPHILS % 80.6 % (36.0-66.0); PLATELET COUNT, AUTOMATED 239 10^3/uL (150-450); RED BLOOD COUNT 3.77 10^6/uL (4.00-5.40); RED CELL DISTRIBUTION WIDTH 13.9 % (11.5-14.5); WHITE BLOOD COUNT 14.6 10^3/uL (4.0-10.0)
[2018-04-27 06:46] LABS: INR 2.51; PROTHROMBIN TIME 28.1 SECONDS (12.4-14.5)
[2018-04-27 06:55] LABS: ALBUMIN/GLOBULIN RATIO 0.75 (1.00-1.93); ALKALINE PHOSPHATASE 79 U/L (45-117); ALT/SGPT 22 U/L (12-78); ANION GAP 6 MEQ/L (8-16); AST/SGOT 18 U/L (7-37); BILIRUBIN,TOTAL 0.3 MG/DL (0.2-1.0); BLOOD UREA NITROGEN 20 MG/DL (7-18); CALCIUM LEVEL 8.2 MG/DL (8.8-10.2); CARBON DIOXIDE LEVEL 34 MEQ/L (21-32); CHLORIDE LEVEL 102 MEQ/L (98-107); GLOMERULAR FILTRATION RATE > 60.0 (>32); GLUCOSE, FASTING 114 MG/DL (70-100); MAGNESIUM LEVEL 1.7 MG/DL (1.8-2.4); POTASSIUM SERUM 3.9 MEQ/L (3.5-5.1); SODIUM LEVEL 142 MEQ/L (136-145)
[2018-04-27] MEDS: MAGNESIUM OXIDE 400 MG TAB (MAG-OX) PO (07:20)
[2018-04-27] MEDS: DIGOXIN 0.125 MG TAB PO (07:21)
[2018-04-27] MEDS: PRAVASTATIN 20 MG TAB PO (07:21)
[2018-04-27] MEDS: HumaLOG INSULIN (NovoLOG) PER UNIT SC ×4 (07:22→20:52)
[2018-04-27] MEDS: IPRATROPIUM 0.5MG/ALBUTEROL 2.5MG INH SOL UD 3ML (DUONEB)(J7620) NEB ×4 (07:52→20:56)
[2018-04-27 11:46] LABS: BEDSIDE GLUCOSE 113 MG/DL (83-110)
[2018-04-27] MEDS: FUROSEMIDE 20 MG TAB PO (14:38)
[2018-04-27 15:30] LABS: APPEARANCE, URINE CLEAR (CLEAR); BACTERIA, URINE AUTO NEGATIVE (NEGATIVE); BILIRUBIN, URINE AUTO NEGATIVE (NEGATIVE); BLOOD, URINE BLOOD NEGATIVE (NEGATIVE); COLOR, URINE STRAW (YELLOW); GLUCOSE, URINE (UA) AUTO NEGATIVE (NEGATIVE); KETONE, URINE AUTO NEGATIVE (NEGATIVE); LEUKOCYTE ESTERASE, URINE AUTO 1+ (NEGATIVE); NITRITE, URINE AUTO NEGATIVE (NEGATIVE); PROTEIN, URINE AUTO NEGATIVE (NEGATIVE); RBC, URINE AUTO 2 /HPF (0-3); SPECIFIC GRAVITY URINE AUTO 1.008 (1.002-1.035); SQUAMOUS EPITHELIAL CELL UR AU 0 /HPF (0-6); UROBILINOGEN, URINE AUTO 0.2 mg/dL (0.0-2.0); WBC, URINE AUTO 2 /HPF (0-3)
[2018-04-27 17:15] LABS: BEDSIDE GLUCOSE 177 MG/DL (83-110)
[2018-04-27] MEDS: WARFARIN SOD 4 MG TAB PO (17:17)
[2018-04-27] MEDS: METOPROLOL TART 12.5 MG PER 1/2 TAB PO (17:59)
[2018-04-27 20:53] LABS: BEDSIDE GLUCOSE 150 MG/DL (83-110)
[2018-04-28] MEDS: SLF 3 ML SYR IV ×3 (05:39→21:26)
[2018-04-28 05:43] LABS: BASO % 0.1 % (0.0-1.0); EOS # 0.1 10^3/uL (0.0-0.50); EOS % 0.8 % (0.0-3.0); HEMATOCRIT 35.2 % (36.0-47.0); HEMOGLOBIN 11.1 g/dl (12.0-15.5); IMMATURE GRANULOCYTE % 0.3 % (0-3.0); LYMPH # 1.4 10^3/uL (1.5-4.5); LYMPH % 10.7 % (24.0-44.0); MEAN CORPUSCULAR HEMOGLOBIN 29.2 pg (27.0-33.0); MEAN CORPUSCULAR HGB CONC 31.5 g/dl (32.0-36.5); MEAN CORPUSCULAR VOLUME 92.6 fl (80.0-96.0); MONO # 1.4 10^3/uL (0.0-0.8); NEUTROPHILS # 9.8 10^3/uL (1.8-7.7); NEUTROPHILS % 77.1 % (36.0-66.0); PLATELET COUNT, AUTOMATED 236 10^3/uL (150-450); RED CELL DISTRIBUTION WIDTH 13.8 % (11.5-14.5); WHITE BLOOD COUNT 12.7 10^3/uL (4.0-10.0)
[2018-04-28 05:54] LABS: INR 2.32; PROTHROMBIN TIME 26.4 SECONDS (12.4-14.5)
[2018-04-28 06:05] LABS: ALBUMIN 2.8 GM/DL (3.2-5.2); ALBUMIN/GLOBULIN RATIO 0.67 (1.00-1.93); ALKALINE PHOSPHATASE 82 U/L (45-117); ALT/SGPT 20 U/L (12-78); ANION GAP 6 MEQ/L (8-16); AST/SGOT 14 U/L (7-37); BILIRUBIN,TOTAL 0.5 MG/DL (0.2-1.0); BLOOD UREA NITROGEN 21 MG/DL (7-18); CALCIUM LEVEL 8.3 MG/DL (8.8-10.2); CARBON DIOXIDE LEVEL 37 MEQ/L (21-32); CHLORIDE LEVEL 99 MEQ/L (98-107); CREATININE FOR GFR 0.76 MG/DL (0.55-1.30); GLOMERULAR FILTRATION RATE > 60.0 (>32); GLUCOSE, FASTING 136 MG/DL (70-100); MAGNESIUM LEVEL 1.8 MG/DL (1.8-2.4); POTASSIUM SERUM 3.5 MEQ/L (3.5-5.1); SODIUM LEVEL 142 MEQ/L (136-145)
[2018-04-28] MEDS: IPRATROPIUM 0.5MG/ALBUTEROL 2.5MG INH SOL UD 3ML (DUONEB)(J7620) NEB ×4 (08:00→20:36)
[2018-04-28] MEDS: PRAVASTATIN 20 MG TAB PO (08:30)
[2018-04-28] MEDS: TORSEMIDE 20 MG TAB PO (08:30)
[2018-04-28] MEDS: MAGNESIUM OXIDE 400 MG TAB (MAG-OX) PO (08:30)
[2018-04-28] MEDS: DIGOXIN 0.125 MG TAB PO (08:30)
[2018-04-28] MEDS: METOPROLOL TART 12.5 MG PER 1/2 TAB PO ×2 (08:30→21:27)
[2018-04-28] MEDS: HumaLOG INSULIN (NovoLOG) PER UNIT SC ×4 (08:30→21:00)
[2018-04-28] MEDS: LevoFLOXacin IV 750 MG in APPROPRIATE DILUENT 1 EA IV (10:50)
[2018-04-28 12:06] LABS: BEDSIDE GLUCOSE 153 MG/DL (83-110)
[2018-04-28 16:55] LABS: BEDSIDE GLUCOSE 145 MG/DL (83-110)
[2018-04-28] MEDS: WARFARIN SOD 4 MG TAB PO (17:00)
[2018-04-28 21:27] LABS: BEDSIDE GLUCOSE 194 MG/DL (83-110)
[2018-04-28] MEDS: ACETAMINOPHEN TAB 650MG DOSE (2X325MG) PO (23:32)
[2018-04-29] MEDS: SLF 3 ML SYR IV ×3 (05:29→21:22)
[2018-04-29 05:36] LABS: BASO % 0.2 % (0.0-1.0); EOS # 0.2 10^3/uL (0.0-0.50); EOS % 1.3 % (0.0-3.0); HEMATOCRIT 36.2 % (36.0-47.0); HEMOGLOBIN 11.4 g/dl (12.0-15.5); IMMATURE GRANULOCYTE % 0.3 % (0-3.0); LYMPH # 1.5 10^3/uL (1.5-4.5); LYMPH % 12.1 % (24.0-44.0); MEAN CORPUSCULAR HEMOGLOBIN 29.3 pg (27.0-33.0); MEAN CORPUSCULAR HGB CONC 31.5 g/dl (32.0-36.5); MEAN CORPUSCULAR VOLUME 93.1 fl (80.0-96.0); MONO # 1.2 10^3/uL (0.0-0.8); MONO % 10.3 % (0.0-5.0); NEUTROPHILS # 9.1 10^3/uL (1.8-7.7); NEUTROPHILS % 75.8 % (36.0-66.0); PLATELET COUNT, AUTOMATED 227 10^3/uL (150-450); RED BLOOD COUNT 3.89 10^6/uL (4.00-5.40); RED CELL DISTRIBUTION WIDTH 13.8 % (11.5-14.5)
[2018-04-29 05:45] LABS: INR 2.32; PROTHROMBIN TIME 26.4 SECONDS (12.4-14.5)
[2018-04-29 06:00] LABS: ALBUMIN 2.6 GM/DL (3.2-5.2); ALBUMIN/GLOBULIN RATIO 0.63 (1.00-1.93); ALKALINE PHOSPHATASE 82 U/L (45-117); ALT/SGPT 27 U/L (12-78); ANION GAP 9 MEQ/L (8-16); AST/SGOT 18 U/L (7-37); BILIRUBIN,TOTAL 0.5 MG/DL (0.2-1.0); BLOOD UREA NITROGEN 22 MG/DL (7-18); CALCIUM LEVEL 8.6 MG/DL (8.8-10.2); CARBON DIOXIDE LEVEL 33 MEQ/L (21-32); CHLORIDE LEVEL 100 MEQ/L (98-107); CREATININE FOR GFR 0.76 MG/DL (0.55-1.30); GLOMERULAR FILTRATION RATE > 60.0 (>32); GLUCOSE, FASTING 154 MG/DL (70-100); MAGNESIUM LEVEL 1.8 MG/DL (1.8-2.4); POTASSIUM SERUM 3.6 MEQ/L (3.5-5.1); SODIUM LEVEL 142 MEQ/L (136-145); TOTAL PROTEIN 6.7 GM/DL (6.4-8.2)
[2018-04-29] MEDS: IPRATROPIUM 0.5MG/ALBUTEROL 2.5MG INH SOL UD 3ML (DUONEB)(J7620) NEB ×4 (07:11→20:30)
[2018-04-29] MEDS: HumaLOG INSULIN (NovoLOG) PER UNIT SC ×4 (07:54→21:00)
[2018-04-29] MEDS: TORSEMIDE 20 MG TAB PO (09:08)
[2018-04-29] MEDS: MAGNESIUM OXIDE 400 MG TAB (MAG-OX) PO (09:09)
[2018-04-29] MEDS: DIGOXIN 0.125 MG TAB PO (09:09)
[2018-04-29] MEDS: METOPROLOL TART 12.5 MG PER 1/2 TAB PO ×2 (09:09→21:21)
[2018-04-29] MEDS: PRAVASTATIN 20 MG TAB PO (09:09)
[2018-04-29 11:42] LABS: BEDSIDE GLUCOSE 119 MG/DL (83-110)
[2018-04-29 16:52] LABS: BEDSIDE GLUCOSE 150 MG/DL (83-110)
[2018-04-29] MEDS: WARFARIN SOD 3 MG TAB PO (17:00)
[2018-04-29 20:12] LABS: BEDSIDE GLUCOSE 210 MG/DL (83-110)
[2018-04-30] MEDS: SLF 3 ML SYR IV (04:07)
[2018-04-30 06:01] LABS: BASO % 0.2 % (0.0-1.0); EOS # 0.3 10^3/uL (0.0-0.50); EOS % 2.8 % (0.0-3.0); HEMATOCRIT 36.1 % (36.0-47.0); HEMOGLOBIN 11.4 g/dl (12.0-15.5); IMMATURE GRANULOCYTE % 0.5 % (0-3.0); LYMPH # 1.9 10^3/uL (1.5-4.5); MEAN CORPUSCULAR HEMOGLOBIN 29.2 pg (27.0-33.0); MEAN CORPUSCULAR HGB CONC 31.6 g/dl (32.0-36.5); MEAN CORPUSCULAR VOLUME 92.6 fl (80.0-96.0); MONO # 0.9 10^3/uL (0.0-0.8); MONO % 9.3 % (0.0-5.0); NEUTROPHILS # 6.9 10^3/uL (1.8-7.7); NEUTROPHILS % 68.2 % (36.0-66.0); PLATELET COUNT, AUTOMATED 257 10^3/uL (150-450); RED CELL DISTRIBUTION WIDTH 13.6 % (11.5-14.5); WHITE BLOOD COUNT 10.1 10^3/uL (4.0-10.0)
[2018-04-30 06:13] LABS: INR 2.36; PROTHROMBIN TIME 26.7 SECONDS (12.4-14.5)
[2018-04-30 06:23] LABS: ALBUMIN 2.6 GM/DL (3.2-5.2); ALBUMIN/GLOBULIN RATIO 0.67 (1.00-1.93); ALKALINE PHOSPHATASE 76 U/L (45-117); ALT/SGPT 33 U/L (12-78); ANION GAP 6 MEQ/L (8-16); AST/SGOT 21 U/L (7-37); BILIRUBIN,TOTAL 0.4 MG/DL (0.2-1.0); BLOOD UREA NITROGEN 23 MG/DL (7-18); CALCIUM LEVEL 8.8 MG/DL (8.8-10.2); CARBON DIOXIDE LEVEL 34 MEQ/L (21-32); CHLORIDE LEVEL 102 MEQ/L (98-107); CREATININE FOR GFR 0.76 MG/DL (0.55-1.30); GLOMERULAR FILTRATION RATE > 60.0 (>32); GLUCOSE, FASTING 147 MG/DL (70-100); MAGNESIUM LEVEL 1.7 MG/DL (1.8-2.4); POTASSIUM SERUM 3.5 MEQ/L (3.5-5.1); SODIUM LEVEL 142 MEQ/L (136-145); TOTAL PROTEIN 6.5 GM/DL (6.4-8.2)
[2018-04-30] MEDS: HumaLOG INSULIN (NovoLOG) PER UNIT SC ×2 (07:59→11:52)
[2018-04-30] MEDS: DIGOXIN 0.125 MG TAB PO (08:00)
[2018-04-30] MEDS: METOPROLOL TART 12.5 MG PER 1/2 TAB PO (08:00)
[2018-04-30] MEDS: PRAVASTATIN 20 MG TAB PO (08:00)
[2018-04-30] MEDS: MAGNESIUM OXIDE 400 MG TAB (MAG-OX) PO (08:00)
[2018-04-30] MEDS: TORSEMIDE 20 MG TAB PO ×2 (08:00→10:37)
[2018-04-30] MEDS: IPRATROPIUM 0.5MG/ALBUTEROL 2.5MG INH SOL UD 3ML (DUONEB)(J7620) NEB ×2 (08:44→11:15)
[2018-04-30] MEDS: LevoFLOXacin IV 750 MG in APPROPRIATE DILUENT 1 EA IV (10:34)
[2018-04-30 11:41] LABS: BEDSIDE GLUCOSE 156 MG/DL (83-110)
== END 2018-04-30 12:45 | disposition home or self-care (01) | DRG 292 ==
LOC: M ED 09:35 → M ED INP 14:45 → M PCU 15:35
DX: I50.33 Acute on chronic diastolic (congestive) heart failure (principal); I82.432 Acute embolism and thrombosis of left popliteal vein; I48.0 Paroxysmal atrial fibrillation; E11.9 Type 2 diabetes mellitus without complications; E78.00 Pure hypercholesterolemia, unspecified; J44.9 Chronic obstructive pulmonary disease, unspecified; R09.02 Hypoxemia; K21.9 Gastro-esophageal reflux disease without esophagitis; I69.398 Other sequelae of cerebral infarction; D72.829 Elevated white blood cell count, unspecified; K44.9 Diaphragmatic hernia without obstruction or gangrene; M47.816 Spondylosis without myelopathy or radiculopathy, lumbar region; Z96.651 Presence of right artificial knee joint; Z92.3 Personal history of irradiation; Z85.3 Personal history of malignant neoplasm of breast; Z94.9 Transplanted organ and tissue status, unspecified; Z79.01 Long term (current) use of anticoagulants; Z79.84 Long term (current) use of oral hypoglycemic drugs; Z79.899 Other long term (current) drug therapy

== ENCOUNTER → 2018-06-05 | Outpatient (REF) | payer MEDICARE ==
[2018-06-05 13:10] LABS: ALBUMIN 3.3 GM/DL (3.2-5.2); ALBUMIN/GLOBULIN RATIO 0.87 (1.00-1.93); ALKALINE PHOSPHATASE 87 U/L (45-117); ALT/SGPT 22 U/L (12-78); ANION GAP 8 MEQ/L (8-16); AST/SGOT 21 U/L (7-37); BILIRUBIN,TOTAL 0.5 MG/DL (0.2-1.0); BLOOD UREA NITROGEN 19 MG/DL (7-18); CALCIUM LEVEL 9.2 MG/DL (8.8-10.2); CARBON DIOXIDE LEVEL 31 MEQ/L (21-32); CHLORIDE LEVEL 103 MEQ/L (98-107); CREATININE FOR GFR 0.81 MG/DL (0.55-1.30); GLOMERULAR FILTRATION RATE > 60.0 (>32); GLUCOSE, FASTING 74 MG/DL (70-100); POTASSIUM SERUM 4.1 MEQ/L (3.5-5.1); SODIUM LEVEL 142 MEQ/L (136-145); TOTAL PROTEIN 7.1 GM/DL (6.4-8.2)
[2018-06-05 14:30] LABS: ESTIMATED AVERAGE GLUCOSE 143 MG/DL (60-110); HEMOGLOBIN A1c 6.6 %
[2018-06-05 18:54] LABS: CREATININE, URINE 98.1 MG/DL; MALB URINE SIEMENS 11.9 MG/L; MAU/CREAT RATIO 12.1 MCG/MG (0.0-30.0)
== END ==
LOC: M SFHCPLAZ 10:02
DX: E11.9 Type 2 diabetes mellitus without complications (principal)
CPT/HCPCS: 80053

== ENCOUNTER 2018-11-06 16:53 | Inpatient (IN) | payer MEDICARE ==
[~2018-11-06] VITALS: Ht 152.4 cm; Wt 86.8 kg
[~2018-11-06 16:53] MED LIST changes: -ACET1TAB17 PO; +ACET1TAB55 PO; +AUGM875T28 PO; +CALC1TAB26 PO; +D 501TAB PO; +KLOR10TA76 PO; +KLOR20TA42 PO; -POTA10CA PO; +PROAAER10 INH; +VITA200038 PO; +WARF4TAB51 PO
[2018-11-06] MEDS ORDERED: CITA-229 PO (17:24)
[2018-11-06] MEDS ORDERED: COUM1TAB17 PO (17:26)
[2018-11-06] MEDS ORDERED: COUM2.5T17 PO (17:26)
[2018-11-06] MEDS ORDERED: PRED20TA PO (17:28)
[2018-11-06] MEDS ORDERED: DOXY100T16 PO (17:28)
[2018-11-06] MEDS ORDERED: methylPREDNISolone INJ 125 MG/2 ML VIAL (J2930) IV ONE (17:30)
[2018-11-06] MEDS: IPRATROPIUM 0.5MG/ALBUTEROL 2.5MG INH SOL UD 3ML (DUONEB)(J7620) NEB PRN ×2 (17:45→17:53)
[2018-11-06 17:57] LABS: BASO % 0.1 % (0.0-1.0); EOS % 0.2 % (0.0-3.0); HEMATOCRIT 35.6 % (36.0-47.0); HEMOGLOBIN 11.3 g/dl (12.0-15.5); LYMPH # 1.6 10^3/uL (1.5-4.5); LYMPH % 12.9 % (24.0-44.0); MEAN CORPUSCULAR HEMOGLOBIN 30.4 pg (27.0-33.0); MEAN CORPUSCULAR HGB CONC 31.7 g/dl (32.0-36.5); MEAN CORPUSCULAR VOLUME 95.7 fl (80.0-96.0); MONO # 1.2 10^3/uL (0.0-0.8); MONO % 9.8 % (0.0-5.0); NEUTROPHILS # 9.3 10^3/uL (1.8-7.7); NEUTROPHILS % 76.8 % (36.0-66.0); PLATELET COUNT, AUTOMATED 291 10^3/uL (150-450); RED BLOOD COUNT 3.72 10^6/uL (4.00-5.40); WHITE BLOOD COUNT 12.1 10^3/uL (4.0-10.0)
[2018-11-06 18:23] LABS: INFLUENZA A AMPLIFICATION NEGATIVE (NEGATIVE); INFLUENZA B AMPLIFICATION NEGATIVE (NEGATIVE); INR 3.81; PROTHROMBIN TIME 38.5 SECONDS (12.1-14.4)
[2018-11-06 18:28] LABS: BLOOD UREA NITROGEN 22 MG/DL (7-18); CALCIUM LEVEL 9.2 MG/DL (8.8-10.2); CARBON DIOXIDE LEVEL 33 MEQ/L (21-32); CHLORIDE LEVEL 99 MEQ/L (98-107); CPK CREATINE PHOSPHOKINASE 90 U/L (26-192); GLOMERULAR FILTRATION RATE > 60.0 (>32); GLUCOSE, FASTING 140 MG/DL (70-100); MB/CK RELATIVE INDEX 2.11 (< OR =4); NT-PRO BNP 7898 PG/ML (<450); POTASSIUM SERUM 4.4 MEQ/L (3.5-5.1); SODIUM LEVEL 137 MEQ/L (136-145); TROPONIN I < 0.02 NG/ML (< 0.10)
--- NOTE | 2018-11-06 18:42 | REP ---
HISTORY: Cough and dyspnea. COMPARISON: Multiple, the latest 04/27/2018. A subtle patchy opacity has developed in the right lower lobe. There is cardiomegaly, status quo. There are fibrotic changes, status quo. There is no change in the osseous structures. IMPRESSION: New patchy right lower lobe opacity suspicious for pneumonia. Correlate clinically with appropriate followup. Electronically Signed by Taco Gonzales DO 11/06/2018 07:45 P
[2018-11-06] MEDS ORDERED: AZITHROMYCIN INJ 500 MG, VIAL MATE ADAPTER 1 EACH in D5W 250 ML IV ONE (18:45)
[2018-11-06] MEDS ORDERED: cefTRIAXone SOD 2 GM in D5W MINI-BAG PLUS 50 ML IV ONE (18:45)
[2018-11-06] MEDS ORDERED: FUROSEMIDE 40 MG/4 ML VIAL (J1940) IV ONE (18:45)
[2018-11-06] MEDS ORDERED: ACET-683 PO (19:15)
[2018-11-06] MEDS ORDERED: AIRB1TAB PO (19:15)
[2018-11-06] MEDS ORDERED: ALBU83IN INH (19:17)
--- NOTE | 2018-11-06 20:00 | REPVR ---
EXAM: CT Chest Without Contrast EXAM DATE/TIME: 11/06/2018 6:32 PM CLINICAL HISTORY: 88 years old, female; Abnormal findings; Abnormal radiologic exam of lung or chest; Additional info: Rll opacity TECHNIQUE: Axial computed tomography images of the chest without intravenous contrast. All CT scans at this facility use at least one of these dose optimization techniques: automated exposure control; mA and/or kV adjustment per patient size (includes targeted exams where dose is matched to clinical indication); or iterative reconstruction. Coronal and sagittal reformatted images were created and reviewed. MIP reconstructed images were created and reviewed. COMPARISON: CT ANGIO CHEST 04/25/2018 12:35 PM FINDINGS: Thyroid: There is a 0.8 cm low-density lesion in the right lobe of the thyroid. Lungs: There are multiple pulmonary nodules. 2 nodules in the posterior segment right upper lobe (series 201 image 24) measuring 8 mm in 4 mm respectively in maximum diameter (slightly larger than previous). Pleural-based nodule in the posterior segment right upper lobe (series 21 image 26) measuring 6 mm (no change). Right middle lobe nodule (series 2 on image 50) measuring 5.8 mm (previous 4 mm). Subsegmental atelectasis in the dependent portion of the right lower lobe at the lung base. [place] at the right lung base. Mild bronchiectasis at the left lung base. 4 mm pleural-based nodule left upper lobe posteriorly and unchanged (series 201 image 18). Pleural space: There is a small right pleural effusion. Heart: There is mitral valvular calcification. Pulmonary arteries: There is enlargement of the main pulmonary artery with a maximum diameter 4 cm. Aorta: The aorta measures 3.7 cm in maximum diameter. There is aortic valvular calcification. Lymph nodes: Scattered lymph nodes noted within the mediastinum measure less than 1 cm in short axis. Bones/joints: Vertebral hemangioma at L1. Soft tissues: Surgical clips noted in the right axilla. Gallbladder and bile ducts: Surgical clips noted in the gallbladder fossa. The gallbladder is absent. Pancreas: Calcifications noted within the pancreatic tail. IMPRESSION: 1. Small right pleural effusion which is increased in size since previous. Adjacent subpleural atelectasis at the right base which has slightly progressed since previous. 2. Bilateral pulmonary nodules. Several nodules on the right appear slightly larger. Finding suggests metastatic disease.For patients at low risk (minimal or absent history of smoking and of other known risk factors), no routine follow-up is indicated. For patients at high risk (history of smoking or of other known risk factors), consider optional CT at 12 months. (Richa et al., Fleischner Society, 2017) 3. Enlargement of the main pulmonary arteries suggest pulmonary arterial hypertension. 4. Calcifications within the pancreatic tail unchanged from previous COMMENT: Consistent with the [employer]'s Incidental Findings Committee Report (J Am Morgan Radiol 2015): Unless the patient has clinical risk factors for thyroid cancer or has suspicious findings characterized in this report, for patients under 35 years old any thyroid nodule less than 1.0 cm, and for patients at least 35 years old any thyroid nodule less than 1.5 cm is highly likely to be benign and does not require follow-up imaging or biopsy. Patients with limited life expectancy and/or comorbidities do not require follow up imaging or biopsy for nodules of any size. Electronically signed by: Day Garrett On 11/06/2018 20:00:05 PM
[2018-11-06] MEDS ORDERED: ACETAMINOPHEN 500 MG TAB PO PRN (21:30)
[2018-11-06] MEDS ORDERED: ACETAMINOPHEN TAB 650MG DOSE (2X325MG) PO PRN (22:00)
[2018-11-06] MEDS ORDERED: ONDANSETRON 4MG/2ML VIAL (J2405) IV PRN (22:00)
[2018-11-06 22:27] LABS: INR 2.5; PROTHROMBIN TIME 27.5 SECONDS (12.1-14.4)
[2018-11-06] MEDS ORDERED: IPRATROPIUM 0.5MG/ALBUTEROL 2.5MG INH SOL UD 3ML (DUONEB)(J7620) NEB PRN (22:45)
[2018-11-06 23:10] VITALS: BP 124/77
[2018-11-06] MEDS ORDERED: GLUCAGON FOR INJ 1 MG VIAL (J1610) SC PRN (23:15)
[2018-11-06] MEDS ORDERED: GLUCOSE 4 GM CHEW TABLET PO PRN (23:15)
[2018-11-06] MEDS ORDERED: DEXTROSE 50% 50 ML SYRINGE IV PRN (23:15)
[2018-11-07 02:00] VITALS: BP 126/70
[2018-11-07] MEDS ORDERED: IPRATROPIUM 0.5MG/ALBUTEROL 2.5MG INH SOL UD 3ML (DUONEB)(J7620) NEB SCH (02:00)
--- NOTE | 2018-11-07 04:58 | HPE ---
DATE OF ADMISSION: 11/06/2018 CHIEF COMPLAINT: Upper respiratory infection symptoms with cough, general malaise, wheezing. 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 The patient reports she is here visiting from [place] for [place] and she generally lives in [place] during the winter and here in [facility] over the spring and summer. Over the last week she has had several family members that have had a viral cold. Starting about Saturday she started beginning to cough with a white productive phlegm. She denies any fevers but shortly after started having wheezing. She has generally felt unwell with decreased appetite. She did receive her flu shot this year. She went into urgent care and she was found to have hypoxia to 82% on room air. The emergency room (ER) noted a pneumonia on chest x-ray and ordered a CAT scan and she is being admitted for community-acquired pneumonia treatment. She received a dose of ceftriaxone and azithromycin in the ER. REVIEW OF SYSTEMS: Negative in 14 out of 14 systems, except as noted above. PAST MEDICAL HISTORY: As noted above in history of present illness. PAST SURGICAL HISTORY: The patient had a history of hysterectomy and appendectomy in 1971. The patient had a laparoscopic cholecystectomy in 1995. The patient had a right breast lumpectomy with axillary lymph node dissection in 2004. She had a colonoscopy in 2015. An incisional hernia repair in 2006. HOME MEDICATIONS: The patient's home medications are: - albuterol nebulizers every 4 as needed - metformin 500 mg twice a day - potassium chloride supplements 20 mEq daily - vitamin D 5000 units by mouth at bedtime - calcium 1 tablet daily - Tylenol 500 mg daily as needed - citalopram 10 mg daily - doxycycline 100 mg twice a day which she is unsure of why she takes - pravastatin 80 mg daily - prednisone 20 mg twice daily which she is unsure of why she takes - torsemide 20 mg daily - Coumadin 2.5 mg twice a week and 5 mg 5 times a week ALLERGIES: No known drug allergies. FAMILY HISTORY: Patient reports her mother had dementia. SOCIAL HISTORY: She has six living children. She is and her was at bedside. She lives in [place] and in [place], [place]. No smoking, alcohol or drugs. PHYSICAL EXAMINATION: On exam, when she was admitted she was afebrile to 98.7, blood pressure 132/78, pulse of 81, respiratory rate 20, saturating 88% on room air. GENERAL: She is a pleasant elderly female who appears slightly short of breath. HEENT: Oropharynx clear. NECK: Supple. CARDIOVASCULAR: Regular rate and rhythm. No murmurs, rubs or gallops. LUNGS: The patient had expiratory wheezing throughout and had decreased breath sounds at her right base. ABDOMEN: Soft, nontender, nondistended. EXTREMITIES: No clubbing, cyanosis or edema. SKIN: Intact. PSYCHIATRIC: Mood stable. NEUROLOGICAL: She follows simple commands and has no focal neurological deficits. LABORATORY RESULTS: Patient's complete blood count (CBC) reveals a white count of 12.1, hemoglobin of 11.3, platelets of 291. Chemistry shows a creatinine of 0.9, potassium of 4.4, INR is elevated to 3.81. IMAGING: Imaging reveals a chest x-ray that shows new patchy right lower lobe opacities suspicious for pneumonia. Correlate clinically. The patient also had a CT scan in the emergency room (ER) that shows small right pleural effusion which has increased in size from previous. There is adjacent subpleural atelectasis of the right base which has slightly progressed. There are bilateral pulmonary nodules, several nodules on the right appear slightly larger. Findings suggest metastatic disease. ASSESSMENT AND PLAN: This is an 88-year-old female with past medical history of diabetes, atrial fibrillation on Coumadin, a prior history of breast cancer and a prior cerebrovascular accident (CVA) who presents with upper respiratory infection symptoms concerning for pneumonia as well as imaging concerning for possible metastatic disease. PROBLEMS: 1. Pneumonia. The patient has what appears to be a right-sided infiltrate as well as cough and a slightly elevated white count. I will treat her for community-acquired pneumonia given she has no hospital risk factors. She has been started on ceftriaxone and azithromycin. We will send a respiratory panel in case it is a viral etiology. She will receive supportive treatment with nebulizers and oxygen therapy. 2. Possible metastatic disease with worsening bilateral pulmonary nodules. The patient does have a prior history of breast cancer status post surgery and it appears she has worsening pulmonary nodules that are suggestive of worsening metastatic disease. Primary team should follow up with her oncologist in the morning regarding these findings. The patient may need inpatient versus outpatient workup of this. There is a right-sided pleural effusion and it may make sense to just go ahead and do a thoracentesis while she is here for possible diagnosis. Primary team to determine this tomorrow. 3. History of diabetes. I am holding her metformin and she has been placed on a sliding scale. 4. A history of atrial fibrillation. Her INR on admission was 3.8 therefore I am holding her home Coumadin and we will repeat her INRs and dose Coumadin accordingly per primary team. 5. Chronic medical problems. I will continue her home medications for now. It is not clear to me why she is on prednisone and primary team tomorrow to follow up with her doctor as an outpatient to follow up on the reason for this as well. We will continue her home torsemide for now. She does not appear overtly dehydrated or fluid overloaded. 6. The patient is already on Coumadin for deep vein thrombosis (DVT) prophylaxis. 7. Patient is FULL CODE.
[2018-11-07 06:00] VITALS: BP 134/81
[2018-11-07 06:04] LABS: HEMATOCRIT 33.9 % (36.0-47.0); HEMOGLOBIN 10.5 g/dl (12.0-15.5); MEAN CORPUSCULAR HEMOGLOBIN 29.4 pg (27.0-33.0); PLATELET COUNT, AUTOMATED 273 10^3/uL (150-450); RED BLOOD COUNT 3.57 10^6/uL (4.00-5.40); WHITE BLOOD COUNT 8.6 10^3/uL (4.0-10.0)
[2018-11-07 06:35] LABS: CALCIUM LEVEL 8.8 MG/DL (8.8-10.2); POTASSIUM SERUM 4.6 MEQ/L (3.5-5.1)
[2018-11-07] MEDS: ALBUTEROL SULFATE 2.5 MG/0.5 ML INH NEB SOLN NEB SCH ×3 (08:00→23:54)
[2018-11-07] MEDS: predniSONE 20 MG TAB PO SCH (08:23)
[2018-11-07] MEDS: PRAVASTATIN 20 MG TAB PO SCH (08:23)
[2018-11-07] MEDS: CitaloPRAM (CeleXA) 10 MG TABLET PO SCH (08:24)
[2018-11-07] MEDS: TORSEMIDE 20 MG TAB PO SCH (08:24)
[2018-11-07] MEDS: HumaLOG INSULIN (NovoLOG) PER UNIT SC SCH ×4 (08:24→21:00)
[2018-11-07] MEDS: LEVEMIR (INSULIN DETEMIR) 1 UNITS/0.01ML SC SCH (08:25)
[2018-11-07] MEDS ORDERED: DOXYCYCLINE HYCLATE 100 MG TAB PO SCH (09:00)
[2018-11-07] MEDS ORDERED: predniSONE 20 MG TAB PO SCH (09:00)
--- NOTE | 2018-11-07 09:21 | ECGEPIP ---
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
[2018-11-07 10:00] VITALS: BP 132/65
[2018-11-07 14:00] VITALS: BP 104/58
[2018-11-07] MEDS ORDERED: WARFARIN SOD 2.5 MG TAB PO SCH (17:00)
[2018-11-07 18:00] VITALS: BP 107/57
[2018-11-07] MEDS ORDERED: cefTRIAXone SOD 1 GM in D5W MINI-BAG PLUS 50 ML IV SCH (18:00)
[2018-11-07] MEDS ORDERED: AZITHROMYCIN INJ 500 MG, VIAL MATE ADAPTER 1 EACH in D5W 250 ML IV SCH (21:00)
[2018-11-07] MEDS ORDERED: WARFARIN SOD 5 MG TAB PO SCH (21:00)
[2018-11-07] MEDS: AZITHROMYCIN 250 MG TAB PO SCH (21:32)
[2018-11-07 22:00] VITALS: BP 108/60
[2018-11-07 22:12] LABS: INR 2.45; PROTHROMBIN TIME 27.1 SECONDS (12.1-14.4)
[2018-11-08 02:00] VITALS: BP 112/61
[2018-11-08 06:00] VITALS: BP 146/70
[2018-11-08 06:49] LABS: INR 2.37; PROTHROMBIN TIME 26.4 SECONDS (12.1-14.4)
[2018-11-08] MEDS: ALBUTEROL SULFATE 2.5 MG/0.5 ML INH NEB SOLN NEB SCH ×2 (07:32→16:00)
[2018-11-08] MEDS: predniSONE 20 MG TAB PO SCH (08:27)
[2018-11-08] MEDS: TORSEMIDE 20 MG TAB PO SCH (08:27)
[2018-11-08] MEDS: CitaloPRAM (CeleXA) 10 MG TABLET PO SCH (08:27)
[2018-11-08] MEDS: PRAVASTATIN 20 MG TAB PO SCH (08:28)
[2018-11-08] MEDS: LEVEMIR (INSULIN DETEMIR) 1 UNITS/0.01ML SC SCH (08:29)
[2018-11-08] MEDS: HumaLOG INSULIN (NovoLOG) PER UNIT SC SCH ×4 (08:30→21:39)
--- NOTE | 2018-11-08 08:44 | IPNPDOC ---
Text Note Date of Service The patient was seen on 11/07/18. NOTE SUBJECTIVE: Does not offer any complaints this morning. Tells me her m mansi her come to the hospital as she was not breathing right. denies any SOB . Has some cough , no fever or chills, no chest pain . No abdominal pain , nausea or vomiting or diarrhea. PHYSICAL EXAMINATION: VITALS: As below HEENT: Oropharynx clear. NECK: Supple. CARDIOVASCULAR: Regular rate and rhythm. No murmurs, rubs or gallops. LUNGS: The patient had expiratory wheezing throughout and had decreased breath sounds at her right base. ABDOMEN: Soft, nontender, nondistended. EXTREMITIES: No clubbing, cyanosis or edema. SKIN: Intact. PSYCHIATRIC: Mood stable. NEUROLOGICAL: She follows simple commands and has no focal neurological deficits. LABS and RADIOLOGY: reviewed. 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 The patient reports she is here visiting from [place] for [place] and she generally lives in [place] during the winter and here in [facility] over the spring and summer. Over the last week she has had several family members that have had a viral cold. Starting about Saturday she started beginning to cough with a white productive phlegm. She denies any fevers but shortly after started having wheezing. She has generally felt unwell with decreased appetite. She did receive her flu shot this year. She went into urgent care and she was found to have hypoxia to 82% on room air. The emergency room (ER) noted a pneumonia on chest x-ray and ordered a CAT scan and she is being admitted for community-acquired pneumonia treatment. She received a dose of ceftriaxone and azithromycin in the ER. Hypoxia: Probably due to upper respiratory tract infection with post infectious bronchospasm. CXR suggested pneumonia however CT chest only read as atelectasis so will start the patient on incentive spirometry. Will continue with nebs, prednisone oxygen supplementation will try to wean off oxygen. Pneumonia vs atelectasis CT scan does not suggest pneumonia, no fever or significant elevation of WBC. I think this is atelectasis will dc ceftriaxone and continue only with azithromycin. Worsening bilateral pulmonary nodules. will need follow up CT as outpatient. The patient does have a prior history of breast cancer status post surgery and it appears she has worsening pulmonary nodules that are suggestive of worsening metastatic disease. Diabetes will continue with lispro and levemir. Atrial fibrillation. rate controlled, on coumadin, INR therapeutic Hyperlipidemia continue statin. 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 Echo in 2018 suggests that the pateint may have some right heart failure though did not show any pulmonary hypertension will continue with torsemide on discharge. Coumadin for deep vein thrombosis (DVT) prophylaxis. VS,Fishbone, I+O VS, Fishbone, I+O Laboratory Tests 11/06/18 17:40 Red Blood Count 3.72 L, Mean Corpuscular Volume 95.7, Mean Corpuscular Hemoglobin 30.4, Mean Corpuscular Hemoglobin Concent 31.7 L, Red Cell Distribution Width 13.6, Neutrophils (%) (Auto) 76.8 H, Lymphocytes (%) (Auto) 12.9 L, Monocytes (%) (Auto) 9.8 H, Eosinophils (%) (Auto) 0.2, Basophils (%) (Auto) 0.1, Neutrophils # (Auto) 9.3 H, Lymphocytes # (Auto) 1.6, Monocytes # (Auto) 1.2 H, Eosinophils # (Auto) 0.0, Basophils # (Auto) 0.0, Calcium Level 9.2, Total Creatine Kinase 90 11/07/18 05:30 Red Blood Count 3.57 L, Mean Corpuscular Volume 95.0, Mean Corpuscular Hemoglobin 29.4, Mean Corpuscular Hemoglobin Concent 31.0 L, Red Cell Distribution Width 13.5, Calcium Level 8.8 Vital Signs Date Time Temp Pulse Resp B/P (MAP) Pulse Ox O2 Delivery O2 Flow Rate FiO2 11/07/18 10:00 98.8 69 18 132/65 (87) 99 Nasal Cannula 2.0 I&O- Last 24 Hours up to 6 AM 11/07/18 06:00 Intake Total 785 ml Balance 785 ml SAMANTHA SOTO MD Nov 07, 2018 14:37
[2018-11-08 10:00] VITALS: BP 106/62
[2018-11-08 11:57] LABS: BASO % 0.1 % (0.0-1.0); EOS % 0.1 % (0.0-3.0); HEMATOCRIT 34.4 % (36.0-47.0); HEMOGLOBIN 10.6 g/dl (12.0-15.5); LYMPH # 1.6 10^3/uL (1.5-4.5); LYMPH % 12.8 % (24.0-44.0); MEAN CORPUSCULAR HEMOGLOBIN 30.3 pg (27.0-33.0); MEAN CORPUSCULAR HGB CONC 30.8 g/dl (32.0-36.5); MEAN CORPUSCULAR VOLUME 98.3 fl (80.0-96.0); MONO # 0.9 10^3/uL (0.0-0.8); MONO % 6.9 % (0.0-5.0); NEUTROPHILS # 10.2 10^3/uL (1.8-7.7); NEUTROPHILS % 79.7 % (36.0-66.0); PLATELET COUNT, AUTOMATED 303 10^3/uL (150-450); WHITE BLOOD COUNT 12.8 10^3/uL (4.0-10.0)
--- NOTE | 2018-11-08 12:26 | IPNPDOC ---
Text Note Date of Service The patient was seen on 11/08/18. NOTE SUBJECTIVE: Pateint says that she is having wheezing this morning, no cough or phlegm , no fever or chills, no chest pain. Her oxygen requirement has gone down today. PHYSICAL EXAMINATION: VITALS: As below HEENT: Oropharynx clear. NECK: Supple. CARDIOVASCULAR: Regular rate and rhythm. No murmurs, rubs or gallops. LUNGS: The patient had expiratory wheezing throughout and had decreased breath sounds at her right base. ABDOMEN: Soft, nontender, nondistended. EXTREMITIES: No clubbing, cyanosis or edema. SKIN: Intact. PSYCHIATRIC: Mood stable. NEUROLOGICAL: She follows simple commands and has no focal neurological deficits. LABS and RADIOLOGY: reviewed. 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 The patient reports she is here visiting from [place] for [place] and she generally lives in [place] during the winter and here in [facility] over the spring and summer. Over the last week she has had several family members that have had a viral cold. Starting about Saturday she started beginning to cough with a white productive phlegm. She denies any fevers but shortly a fter started having wheezing. She has generally felt unwell with decreased appetite. She did receive her flu shot this year. She went into urgent care and she was found to have hypoxia to 82% on room air. The emergency room (ER) noted a pneumonia on chest x-ray and ordered a CAT scan and she is being admitted for community-acquired pneumonia treatment. She received a dose of ceftriaxone and azithromycin in the ER. Hypoxia: Probably due to upper respiratory tract infection with post infectious bronchospasm. CXR suggested pneumonia however CT chest only read as atelectasis so will start the patient on incentive spirometry. Will continue with nebs, prednisone oxygen supplementation will try to wean off oxygen. Pneumonia vs atelectasis CT scan does not suggest pneumonia, no fever or significant elevation of WBC. I think this is atelectasis will dc ceftriaxone and continue only with azithromycin. Bilateral lower lobe bronchiectasis will continue with azithromycin, acapella, incentive spirometry. Worsening bilateral pulmonary nodules. present since 2011. will need follow up CT as outpatient. The patient does have a prior history of breast cancer status post surgery and RT in the past. metastatic disease is always a possibility so will need follow up CT scan. Diabetes will continue with lispro and levemir. Atrial fibrillation. rate controlled, on coumadin, INR therapeutic Hyperlipidemia continue statin. 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 Echo in 2018 s uggests that the pateint may have some right heart failure though did not show any pulmonary hypertension will continue with torsemide on discharge. Coumadin for deep vein thrombosis (DVT) prophylaxis. VS,Fishbone, I+O VS, Fishbone, I+O Laboratory Tests 11/08/18 05:38 Red Blood Count 3.50 L, Mean Corpuscular Volume 98.3 H, Mean Corpuscular Hemoglobin 30.3, Mean Corpuscular Hemoglobin Concent 30.8 L, Red Cell Distribution Width 13.7, Neutrophils (%) (Auto) 79.7 H, Lymphocytes (%) (Auto) 12.8 L, Monocytes (%) (Auto) 6.9 H, Eosinophils (%) (Auto) 0.1, Basophils (%) (Auto) 0.1, Neutrophils # (Auto) 10.2 H, Lymphocytes # (Auto) 1.6, Monocytes # (Auto) 0.9 H, Eosinophils # (Auto) 0.0, Basophils # (Auto) 0.0 Vital Signs Date Time Temp Pulse Resp B/P (MAP) Pulse Ox O2 Delivery O2 Flow Rate FiO2 11/08/18 11:15 1.0 11/08/18 10:00 97.8 62 20 106/62 (77) 90 Nasal Cannula I&O- Last 24 Hours up to 6 AM 11/08/18 05:59 Intake Total 1380 ml Output Total 200 ml Balance 1180 ml SAMANTHA SOTO MD Nov 08, 2018 12:26
[2018-11-08 12:40] LABS: BLOOD UREA NITROGEN 27 MG/DL (7-18); CALCIUM LEVEL 8.9 MG/DL (8.8-10.2); CARBON DIOXIDE LEVEL 36 MEQ/L (21-32); CHLORIDE LEVEL 96 MEQ/L (98-107); CREATININE FOR GFR 0.87 MG/DL (0.55-1.30); GLOMERULAR FILTRATION RATE > 60.0 (>32); GLUCOSE, FASTING 170 MG/DL (70-100); POTASSIUM SERUM 3.7 MEQ/L (3.5-5.1); SODIUM LEVEL 140 MEQ/L (136-145)
[2018-11-08 14:00] VITALS: BP 135/81
[2018-11-08] MEDS ORDERED: WARFARIN SOD 4 MG TAB PO ONE (17:00)
[2018-11-08 18:00] VITALS: BP 132/73
[2018-11-08] MEDS: AZITHROMYCIN 250 MG TAB PO SCH (21:38)
[2018-11-08 22:00] VITALS: BP 124/79
[2018-11-09 02:00] VITALS: BP 127/73
[2018-11-09 06:00] VITALS: BP 108/67
[2018-11-09 06:45] LABS: BASO % 0.1 % (0.0-1.0); EOS # 0.1 10^3/uL (0.0-0.50); EOS % 0.5 % (0.0-3.0); HEMOGLOBIN 11.1 g/dl (12.0-15.5); LYMPH # 2.1 10^3/uL (1.5-4.5); LYMPH % 17.6 % (24.0-44.0); MEAN CORPUSCULAR HEMOGLOBIN 29.6 pg (27.0-33.0); MEAN CORPUSCULAR HGB CONC 30.8 g/dl (32.0-36.5); MONO # 0.9 10^3/uL (0.0-0.8); MONO % 7.4 % (0.0-5.0); NEUTROPHILS % 73.8 % (36.0-66.0); PLATELET COUNT, AUTOMATED 305 10^3/uL (150-450); RED BLOOD COUNT 3.75 10^6/uL (4.00-5.40); WHITE BLOOD COUNT 12.2 10^3/uL (4.0-10.0)
[2018-11-09 06:56] LABS: INR 1.83; PROTHROMBIN TIME 21.5 SECONDS (12.1-14.4)
[2018-11-09 07:14] LABS: BLOOD UREA NITROGEN 21 MG/DL (7-18); CALCIUM LEVEL 8.3 MG/DL (8.8-10.2); CARBON DIOXIDE LEVEL 36 MEQ/L (21-32); CHLORIDE LEVEL 96 MEQ/L (98-107); CREATININE FOR GFR 0.78 MG/DL (0.55-1.30); GLOMERULAR FILTRATION RATE > 60.0 (>32); GLUCOSE, FASTING 130 MG/DL (70-100); SODIUM LEVEL 138 MEQ/L (136-145)
[2018-11-09] MEDS ORDERED: predniSONE 10 MG TAB PO SCH (09:00)
[2018-11-09] MEDS: ALBUTEROL SULFATE 2.5 MG/0.5 ML INH NEB SOLN NEB SCH ×2 (09:06)
[2018-11-09] MEDS: LEVEMIR (INSULIN DETEMIR) 1 UNITS/0.01ML SC SCH (09:16)
[2018-11-09] MEDS: TORSEMIDE 20 MG TAB PO SCH (09:17)
[2018-11-09] MEDS: PRAVASTATIN 20 MG TAB PO SCH (09:17)
[2018-11-09] MEDS: CitaloPRAM (CeleXA) 10 MG TABLET PO SCH (09:17)
[2018-11-09] MEDS: HumaLOG INSULIN (NovoLOG) PER UNIT SC SCH ×2 (09:17→13:43)
[2018-11-09] MEDS ORDERED: POTASSIUM CHLORIDE 10 MEQ SR TABLET PO ONE (10:00)
[2018-11-09] MEDS ORDERED: PRED10TA2 PO (12:29)
[2018-11-09] MEDS ORDERED: WARFARIN SOD 5 MG TAB PO SCH (17:00)
--- NOTE | 2018-11-22 03:04 | DS.PDOC ---
Discharge Summary General Date of Admission Nov 06, 2018 at 21:49 Date of Discharge 11/09/18 Primary Care Physician: Mert Mercado Attending Physician: SAMANTHA SOTO MD Discharge Summary PROCEDURES PERFORMED DURING STAY: [None]. DISCHARGE DIAGNOSES: Upper respiratory tract infection Hypoxia due to post infectious bronchospasm Acute bronchitis Bronchiectasis CVA with multiinfarct dementia diabetes hypertension Bilateral pulmonary nodules will need follow up CT chest h/o breast cancer Hyperlipidemia Atrial fibrillation Valvular heart disease. COMPLICATIONS/CHIEF COMPLAINT: Pneumonia, Community Acquired. 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 The patient reports she is here visiting from [place] for [place] and she generally lives in [place] during the winter and here in [facility] over the spring and summer. Over the last week she has had several family members that have had a viral cold. Starting about Saturday she started beginning to cough with a white productive phlegm. She denies any fevers but shortly after started having wheezing. She has generally felt unwell with decreased appetite. She did receive her flu shot this year. She went into urgent care and she was found to have hypoxia to 82% on room air. The emergency room (ER) noted a pneumonia on chest x-ray and ordered a CAT scan and she is being admitted for community-acquired pneumonia treatment. She received a dose of ceftriaxone and azithromycin in the ER. Hypoxia: Probably due to upper respiratory tract infection with post infectious bronchospasm. CXR suggested pneumonia however CT chest only read as atelectasis so will start the patient on incentive spirometry. Will continue with nebs, prednisone oxygen supplementation will try to wean off oxygen. Pneumonia vs atelectasis CT scan does not suggest pneumonia, no fever or significant elevation of WBC. I think this is atelectasis will dc ceftriaxone and continue only with azithromycin. Bilateral lower lobe bronchiectasis will continue with azithromycin, acapella, incentive spirometry. Worsening bilateral pulmonary nodules. present since 2011. will need follow up CT as outpatient. The patient does have a prior history of breast cancer status post surgery and RT in the past. metastatic disease is always a possibility so will need follow up CT scan. Diabetes will continue with lispro and levemir. Atrial fibrillation. rate controlled, on coumadin, INR therapeutic Hyperlipidemia continue statin. 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 Echo in 2018 suggests that the patient may have some right heart failure though did not show any pulmonary hypertension will continue with torsemide on discharge. DISCHARGE MEDICATIONS: Please see below. ALLERGIES: Please see below. PHYSICAL EXAMINATION ON DISCHARGE: VITAL SIGNS: Please see below. GENERAL: awake, alert, in no acute distress. HEENT: Oropharynx clear. NECK: Supple. CARDIOVASCULAR: Regular rate and rhythm. No murmurs, rubs or gallops. LUNGS: The patient had expiratory wheezing throughout and had decreased breath sounds at her right base. ABDOMEN: Soft, nontender, nondistended. EXTREMITIES: No clubbing, cyanosis or edema. SKIN: Intact. PSYCHIATRIC: Mood stable. NEUROLOGICAL: She follows simple commands and has no focal neurological defi cits. LABORATORY DATA: Please see below. ACTIVITY: [As tolerated]. DIET: Consistent Carb DISPOSITION: 01 Home, Self-Care. DISCHARGE INSTRUCTIONS: Follow up PMD in 2 weeks ITEMS TO FOLLOW UP Follow up CT chest for pulmonary nodules. DISCHARGE CONDITION: [Stable]. TIME SPENT ON DISCHARGE: Greater than 30 minutes. Vital Signs/I&Os Vital Signs Label Value Date Time Patient Temperature 96.9 degrees F 11/09/18 06 Temperature Source Temporal 11/09/18 06 Pulse 88 11/09/18599 Respiratory Rate 18 bpm 11/09/18599 Blood Pressure Assessment 108/67 (81) 11/09/18 06 Bedside Pulse Oximetry 90 % 11/09/18 06 Item Value Date Time Oxygen Delivery Method Room Air 11/09/18 06 Laboratory Data CBC/BMP Item Value Date Time White Blood Count 12.2 10^3/uL H 11/09/18 05 Red Blood Count 3.75 10^6/uL L 11/09/18 0551 Hemoglobin 11.1 g/dl L 11/09/18 0551 Hematocrit 36.0 % 11/09/18 05 Mean Corpuscular Volume 96.0 fl 11/09/18 05 Mean Corpuscular Hemoglobin 29.6 pg 11/09/18 0551 Mean Corpuscular Hemoglobin Concent 30.8 g/dl L 11/09/18 05 Red Cell Distribution Width 13.3 % 11/09/18 05 Platelet Count 305 10^3/uL 11/09/18 0551 Immature Granulocyte % (Auto) 0.6 % 11/09/18 0551 Neutrophils (%) (Auto) 73.8 % H 11/09/18 05 Lymphocytes (%) (Auto) 17.6 % L 11/09/18 05 Monocytes (%) (Auto) 7.4 % H 11/09/18 05 Eosinophils (%) (Auto) 0.5 % 11/09/18 05 Neutrophils # (Auto) 9.0 10^3/uL H 11/09/18 0551 Basophils (%) (Auto) 0.1 % 11/09/18 05 Lymphocytes # (Auto) 2.1 10^3/uL 11/09/18 0551 Monocytes # (Auto) 0.9 10^3/uL H 11/09/18 0551 Eosinophils # (Auto) 0.1 10^3/uL 11/09/18 0551 Basophils # (Auto) 0.0 10^3/uL 11/09/18 0551 Nucleated Red Blood Cells % (auto) 0.0 % 11/09/18 05 Sodium Level 138 MEQ/L 11/09/18 0551 Potassium Level 3.0 MEQ/L L 11/09/18 0551 Chloride Level 96 MEQ/L L 11/09/18 0551 Carbon Dioxide Level 36 MEQ/L H 11/09/18 0551 Anion Gap 6 MEQ/L L 11/09/18 05 Blood Urea Nitrogen 21 MG/DL H 11/09/18 0551 Creatinine 0.78 MG/DL 11/09/18550 Glomerular Filtration Rate > 60.0 11/09/18 0551 Fasting Glucose 130 MG/DL H 11/09/18 0551 Calcium Level 8.3 MG/DL L 11/09/18 05 Discharge Medications Scheduled (Calcium 600+D 600-800 mg-Unit) 1 Tab Tab, 1 TAB PO DAILY, (Reported) (Airborne) 1 Tab Tab, 1 TAB PO DAILY, (Reported) Cholecalciferol (D 5000) 5,000 Unit Tab, 5,000 UNIT PO QPM, (Reported) TAKES AT 1500 Citalopram Hydrobromide (Citalopram) 10 Mg Tab, 10 MG PO DAILY, (Reported) Doxycycline Monohydrate (Doxycycline Monohydrate) 100 Mg Tab, 100 MG PO BID, (Reported) X 10 DAYS. STARTED 11/05/18. Metformin Hydrochloride (Metformin HCl) 500 Mg Tab, 500 MG PO BID, (Reported) AT 0600 AND 1800. Potassium Chloride (Klor-Con M20) 20 Meq Tabcr, 20 MEQ PO DAILY, (Reported) Pravastatin Sodium (Pravachol) 80 Mg Tab, 80 MG PO DAILY, (Reported) Prednisone (Prednisone) 10 Mg Tab, 10 MG PO TAPER 3 tabs daily x 1day, then 2 tabs daily x 3 days, then 1 tab daily x 3 days and stop Torsemide (Torsemide) 20 Mg Tab, 20 MG PO DAILY, (Reported) TAKES AT 1500 Warfarin Sod (Coumadin) 2.5 Mg Tab, 2.5 MG PO 2XWK, (Reported) ON SATURDAY AND SATURDAY AT 1800. Warfarin Sod (Coumadin) 5 Mg Tab, 5 MG PO 5XW, (Reported) ON SATURDAY, SATURDAY, SATURDAY, SATURDAY, AND SATURDAY AT 1800. Scheduled PRN Acetaminophen (Acetaminophen Extra Stren) 500 Mg Tab, 500 MG PO DAILY PRN for PAIN, (Reported) Albuterol Sulfate (Proair Hfa) 108 Mcg/Act Aer, 2 PUFF INH Q4H PRN for SHORTNESS OF BREATH, (Reported) Albuterol Sulfate (Albuterol Sulfate) 2.5 Mg/3 Ml Nebu, 2.5 MG INH Q4H PRN for SHORTNESS OF BREATH, (Reported) Allergies Coded Allergies: No Known Drug Allergy (Verified Allergy, Unknown, 03/05/17) SAMANTHA SOTO MD Nov 22, 2018 03:04
== END 2018-11-09 13:35 | disposition home or self-care (01) | DRG 153 ==
LOC: M ED 16:53 → M ED INP 21:49 → M MS5PR 23:07
PROVIDERS: ADMIT Internal Medicine; ATTEND Internal Medicine Nephrology
DX: J06.9 Acute upper respiratory infection, unspecified (principal); J90 Pleural effusion, not elsewhere classified; J98.11 Atelectasis; E11.9 Type 2 diabetes mellitus without complications; I48.0 Paroxysmal atrial fibrillation; K21.9 Gastro-esophageal reflux disease without esophagitis; E78.5 Hyperlipidemia, unspecified; R09.02 Hypoxemia; J98.01 Acute bronchospasm; I35.0 Nonrheumatic aortic (valve) stenosis; J47.9 Bronchiectasis, uncomplicated; R91.8 Other nonspecific abnormal finding of lung field; F01.50 Vascular dementia, unspecified severity, without behavioral disturbance, psychotic disturbance, mood disturbance, and anxiety; I69.311 Memory deficit following cerebral infarction; Z90.49 Acquired absence of other specified parts of digestive tract; Z90.710 Acquired absence of both cervix and uterus; Z79.84 Long term (current) use of oral hypoglycemic drugs; Z79.52 Long term (current) use of systemic steroids; Z79.01 Long term (current) use of anticoagulants; Z79.899 Other long term (current) drug therapy; Z85.3 Personal history of malignant neoplasm of breast

== ENCOUNTER → 2019-03-15 | Outpatient (CLI) | payer MEDICARE ==
[~2019-03-15] MED LIST changes: +ACET-683 PO; +AIRB1TAB PO; +ALBU83IN INH; +CITA10TA6 PO; +COUM1TAB17 PO; +COUM2.5T17 PO; -D 501TAB PO; +DOXY100T16 PO; +LANO0.12 PO; +PRED10TA2 PO; +PRED20TA PO; +VITA500030 PO
--- NOTE | 2019-03-15 12:40 | REP ---
Left index finger: Five views. History: Contusion. Findings: Five views of the left index finger demonstrate soft tissue swelling diffusely. No fractures seen. 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 Impression: No fracture seen. Osteoarthritis and diffuse soft tissue swelling noted. Electronically Signed by Carlton Raymond MD 03/15/2019 12:31 P
== END ==
LOC: M WUC 11:40
PROVIDERS: ATTEND Physician Assistant
DX: M18.12 Unilateral primary osteoarthritis of first carpometacarpal joint, left hand (principal); M19.042 Primary osteoarthritis, left hand

== ENCOUNTER → 2019-04-02 | Outpatient (CLI) | payer MEDICARE ==
[2019-04-02 13:12] LABS: HEMATOCRIT 40.1 % (36.0-47.0); HEMOGLOBIN 12.3 g/dl (12.0-15.5); MEAN CORPUSCULAR HEMOGLOBIN 29.2 pg (27.0-33.0); MEAN CORPUSCULAR HGB CONC 30.7 g/dl (32.0-36.5); MEAN CORPUSCULAR VOLUME 95.2 fl (80.0-96.0); PLATELET COUNT, AUTOMATED 287 10^3/uL (150-450); RED BLOOD COUNT 4.21 10^6/uL (4.00-5.40); WHITE BLOOD COUNT 8.1 10^3/uL (4.0-10.0)
[2019-04-02 13:29] LABS: ALBUMIN 3.4 GM/DL (3.2-5.2); ALT/SGPT 23 U/L (12-78); BILIRUBIN,TOTAL 0.4 MG/DL (0.2-1.0); BLOOD UREA NITROGEN 21 MG/DL (7-18); CALCIUM LEVEL 9.2 MG/DL (8.8-10.2); CARBON DIOXIDE LEVEL 33 MEQ/L (21-32); CHLORIDE LEVEL 103 MEQ/L (98-107); CHOLESTEROL LEVEL 173 MG/DL (<200); CHOLESTEROL RISK RATIO 3.392 (<5); GLOMERULAR FILTRATION RATE > 60.0 (>32); GLUCOSE, FASTING 191 MG/DL (70-100); HDL CHOLESTEROL 51 MG/DL (>40); LDL CHOLESTEROL 96 MG/DL (<100); MAGNESIUM LEVEL 1.6 MG/DL (1.8-2.4); NON-HDL-C 122 MG/DL; POTASSIUM SERUM 3.9 MEQ/L (3.5-5.1); SODIUM LEVEL 142 MEQ/L (136-145); TOTAL PROTEIN 6.9 GM/DL (6.4-8.2); TRIGLYCERIDES LEVEL 132 MG/DL (<150)
== END ==
LOC: M WUC 08:46
PROVIDERS: ATTEND Internal Medicine
DX: Z79.01 Long term (current) use of anticoagulants (principal); E11.9 Type 2 diabetes mellitus without complications; I50.30 Unspecified diastolic (congestive) heart failure; E78.00 Pure hypercholesterolemia, unspecified; F34.1 Dysthymic disorder

== ENCOUNTER → 2019-04-16 | Outpatient (CLI) | payer MEDICARE ==
--- NOTE | 2019-04-16 15:38 | REP ---
KUB, ONE VIEW: HISTORY: Altered bowel habits. A small amount of air is present in the intestine. There are no air fluid levels or dilated loops of intestine. There is no pneumoperitoneum. Surgical clips are present in the right upper quadrant. IMPRESSION: Nonspecific bowel gas pattern. Electronically Signed by Philippe Greenfield MD 04/16/2019 03:54 P
== END ==
LOC: M RAD 14:17
PROVIDERS: ATTEND Nurse Practitioner Adult Health
DX: R19.4 Change in bowel habit (principal)
CPT/HCPCS: 74018; G0463

== ENCOUNTER 2019-06-15 11:22 | Inpatient (IN) | payer MEDICARE ==
[~2019-06-15] VITALS: Ht 152.4 cm; Wt 85.8 kg
[2019-06-15 12:10] LABS: HEMATOCRIT 41.6 % (36.0-47.0); HEMOGLOBIN 12.7 g/dl (12.0-15.5); MEAN CORPUSCULAR HEMOGLOBIN 30.2 pg (27.0-33.0); MEAN CORPUSCULAR HGB CONC 30.5 g/dl (32.0-36.5); MEAN CORPUSCULAR VOLUME 98.8 fl (80.0-96.0); PLATELET COUNT, AUTOMATED 240 10^3/uL (150-450); RED BLOOD COUNT 4.21 10^6/uL (4.00-5.40); WHITE BLOOD COUNT 9.1 10^3/uL (4.0-10.0)
[2019-06-15 12:39] LABS: URIC ACID 6.7 MG/DL (2.6-6.0)
[2019-06-15 14:07] LABS: BLOOD UREA NITROGEN 26 MG/DL (7-18); CALCIUM LEVEL 9.3 MG/DL (8.8-10.2); CARBON DIOXIDE LEVEL 32 MEQ/L (21-32); CHLORIDE LEVEL 100 MEQ/L (98-107); CREATININE FOR GFR 0.89 MG/DL (0.55-1.30); GLOMERULAR FILTRATION RATE > 60.0 (>32); GLUCOSE, FASTING 185 MG/DL (70-100); POTASSIUM SERUM 3.9 MEQ/L (3.5-5.1); SODIUM LEVEL 138 MEQ/L (136-145)
[2019-06-15] MEDS ORDERED: ISOVUE-370 76% 100ML VIAL (Q9967) As Ordered ONE (14:23)
--- NOTE | 2019-06-15 14:41 | REP ---
REASON: Pain and swelling. Multiple ultrasonographic images of the deep venous structures of the left thigh were obtained from the level of the common femoral vein to the popliteal vein along with Doppler interrogation and augmentation techniques with color Doppler imaging as well. There is a linear area of increased echoes seen in the common femoral vein. The popliteal vein does not show wall coaptability on compression techniques and echogenic material is seen within the popliteal vein. In the posterior popliteal soft tissues, there is a 5.8 x 1.6 x 4 cm sized complex fluid collection. IMPRESSION: There is evidence of deep vein thrombosis involving the deep vein structures of the left thigh as described above. The findings involving the common femoral vein seen today are new compared to an old exam of 04/25/2018 while the echogenic material and non-coaptability seen involving the popliteal vein today were also noted on that prior exam. I cannot rule out the possibility of acute disease superimposed upon chronic change. Additionally, the Chase's cyst seen on that prior exam has increased in size. Electronically Signed by Taco Gonzales DO 06/15/2019 04:47 P
[2019-06-15 15:54] LABS: INR 1.63; PROTHROMBIN TIME 19.1 SECONDS (11.8-14.0)
[2019-06-15] MEDS ORDERED: WARF-23 PO (16:11)
[2019-06-15] MEDS ORDERED: BREO1INH INH (16:15)
[2019-06-15] MEDS ORDERED: ZINC1TAB2 PO (16:15)
[2019-06-15] MEDS ORDERED: B COTAB3 PO (16:15)
[2019-06-15] MEDS ORDERED: KEFL500C17 PO (16:15)
[2019-06-15] MEDS ORDERED: ACETAMINOPHEN TAB 650MG DOSE (2X325MG) PO PRN (16:45)
[2019-06-15] MEDS ORDERED: MAALOX 30 ML SUSP *UDC PO PRN (16:45)
[2019-06-15] MEDS ORDERED: MOM 30ML SUSPENSION UDC PO PRN (16:45)
[2019-06-15] MEDS ORDERED: ALBUTEROL 90 MCG/ACT 8GM HFA INHALER INH PRN (16:45)
--- NOTE | 2019-06-15 16:59 | HPEPDOC ---
General Date of Admission Jun 15, 2019 at 16:31 Date of Service: Jun 15, 2019 Attending Physician: DOE ELLISON MD Chief Complaint The patient is a 89-year-old female admitted with a reason for visit of DVT. Source: Patient Exam Limitations: No limitations Timing/Duration: Unsure Severity: Moderate Associated Symptoms: Other (left swollen leg few days) History of Present Illness 89 years old, obese female with past medical history of DVT, CHF, diabetes mellitus status post cholecystectomy, status post [id number] surgery and the right-sided lumpectomy, hysterectomy, was seen at the 2 different urgent care centers with the chief complaint of redness and swelling of left lower extremity. On both centers. She was started on by mouth antibiotics without any any relief as patient is on Coumadin for history of DVT in the past. Denies chest mass chest pressure, chest pain, shortness of breath, nausea, vomiting, diarrhea, etc. Home Medications Scheduled Calcium Carbonate/Vitamin D3 (Calcium 600-Vit D3 800 Tablet) 1 Tab Tab, 1 TAB PO DAILY, (Reported) Cephalexin (Keflex) 500 Mg Capsule, 1 CAP PO BID, (Reported) STARTED 7 DAY COURSE ON SATURDAY Cholecalciferol (Vitamin D3) (Vitamin D3) 5,000 Unit Tab, 5,000 UNIT PO QPM, (Reported) TAKES AT 1500 Citalopram Hydrobromide (Citalopram HBr) 10 Mg Tab, 10 MG PO DAILY, (Reported) Fluticasone/Vilanterol (Breo Ellipta 100-25 Mcg INH) 1 Each Blst.w.dev, 1 PUFF INH DAILY, (Reported) Metformin HCl (Metformin HCl) 500 Mg Tab, 500 MG PO BID, (Reported) AT 0600 AND 1800. Potassium Chloride (Klor-Con M20) 20 Meq Tabcr, 20 MEQ PO DAILY, (Reported) Pravastatin Sodium (Pravachol) 80 Mg Tab, 80 MG PO DAILY, (Reported) Torsemide (Torsemide) 20 Mg Tab, 20 MG PO DAILY, (Reported) TAKES AT 1500 Vitamin B Complex (Vitamin B Complex) 1 Each Tablet, 1 TAB PO DAILY, (Reported) Warfarin Sodium (Coumadin) 5 Mg Tab, 5 MG PO 5XW, (Reported) ON SAT, TU, WED, TH, AND SAT AT 1800. Warfarin Sodium (Warfarin Sodium) 5 Mg Tablet, 2.5 MG PO 2XW, (Reported) TAKES 1/2 5MG TABLET ON MON, FRI AT 1800 Zinc (Zinc) 50 Mg Tablet, 50 MG PO DAILY, (Reported) Scheduled PRN Acetaminophen (Acetaminophen) 500 Mg Tab, 500 MG PO DAILY PRN for PAIN, (Reported) Albuterol Sulfate (Proair Hfa) 108 Mcg/Act Aer, 2 PUFF INH Q4H PRN for SHORTNESS OF BREATH, (Reported) Allergies Coded Allergies: No Known Allergies (Unverified , 06/15/19) Past Medical History Medical History DVT, diabetes mellitus, hypertension, CHF, hyperlipidemia Surgical History Status post hysterectomy, cholecystectomy, bilateral knee surgery, right-sided lumpectomy Family History Significant Family History: No pertinent family hx Social History * Smoker: Denies Alcohol: Denies Drugs: denies A-FIB/CHADSVASC A-FIB History Current/History of A-Fib/PAF?: No Current PO Anticoag Therapy: Yes Review of Systems Constitutional: Denies: Chills, Fever, Malaise, Night Sweats, Weakness, Fatigue, Weight Loss, Lethargy, Other Eyes: Denies: Pain, Vision change, Conjunctivae inflammation, Eyelid infla mmation, Redness, Other ENT: Denies: Head Aches, Ear Pain, Dysphagia, Sinus Congestion, Post Nasal Drip, Sore Throat, Epistaxis, Other Symptoms Skin: Denies: Rash, Lesions, Jaundice, Bruising, Itching, Dry, Breakdown, Nail Changes, Other Pulmonary: Denies: Dyspnea, Cough, Pleuritic Chest Pain, Other Symptoms Cardiovascular: Denies: Chest Pain, Palpitations, Orthopnea, Paroxysmal Noc. Dyspnea, Edema, Lt Headedness, Other Symptoms Genitourinary: Denies: Dysuria, Frequency, Incontinence, Hematuria, Retention, Other Symptoms Hematologic: Denies: Bruising, Bleeding Excessively, Petecchia, Purpura, Enlarged Lymph Nodes, Other Hematologic Endocrine: Denies: Polydipsia, Polyphagia, Polyuria, Heat Intolerance, Cold Intolerance, Other Endocrine Sx Musculoskeletal: Reports: Other Symptoms Neurological: Denies: Weakness, Numbness, Incoordination, Change in speech, Confusion, Seizures, Other Symptoms Psych: Denies: Mood Normal, Anxiety, Depression, Memory Issues, Thoughts of Kathie f Harm, Anger, Thoughts of Harming Other, Other Psych Physical Examination General Exam: Positive: Alert Eye Exam: Positive: PERRLA, Conjunctiva & lids normal ENT Exam: Positive: Atraumatic, Mucous membr. moist/pink Neck Exam: Positive: Supple Chest Exam: Positive: Clear to auscultation, Normal air movement Heart Exam: Positive: Rate Normal, Normal S1, Normal S2 Abdomen Exam: Positive: Normal bowel sounds, Soft Extremity Exam: Positive: Tenderness, Swelling ( left calf on palpation), Other (positive swelling and tenderness) Skin Exam: Positive: Nl turgor and temperature Neuro Exam: Positive: Strength at 5/5 X4 ext, Sensation Intact Psych Exam: Positive: Mental status NL, Mood NL Vital Signs Vital Signs Date Time Temp Pulse Resp B/P (MAP) Pulse Ox O2 Delivery O2 Flow Rate FiO2 06/15/19 11:56 06/15/19 11:23 98.0 73 18 92 Room Air Laboratory Data Labs 24H Laboratory Tests 2 06/15/19 11:47: Nucleated Red Blood Cells % (auto) 0.0, Anion Gap 6L, Glomerular Filtration Rate > 60.0, Uric Acid 6.7H, Blood Urea Nitrogen 26H, Creatinine 0.89, Sodium Level 138, Potassium Level 3.9, Chloride Level 100, Carbon Dioxide Level 32, Calcium Level 9.3, C-Reactive Protein, Quantitative 0.40H 06/15/19 13:02: Erythrocyte Sedimentation Rate 45H 06/15/19 15:29: Prothrombin Time 19.1H, Prothromb Time International Ratio 1.63 CBC/BMP Laboratory Tests 06/15/19 11:47 Red Blood Count 4.21, Mean Corpuscular Volume 98.8 H, Mean Corpuscular Hemoglobin 30.2, Mean Corpuscular Hemoglobin Concent 30.5 L, Red Cell Distribution Width 13.7, Calcium Level 9.3 Problems (1) DVT (deep venous thrombosis) Status: Acute Problem Text: 89 years old white female, obese, with multiple medical problems including hypertension, diabetes, 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 Patient was seen at 2 different urgent care centers and is started on by mouth antibiotics and elevation without any relief. Patient was found to have a new DVT on hold. DVT on the left deep venous system. Patient will be admitted for further treatment and management for her recurrent DVT Admit to MedSurg floor Lovenox 1 mg/kg every 12 hours , Coumadin 5 mg by mouth daily Daily PT/INR Continue home meds Bed rest with the bedside commode PT evaluation once INR is therapeutic (2) HTN (hypertension) Problem Text: Under well control. Continue present meds (3) Diabetes mellitus Problem Text: Continue all home meds Fingerstick blood sugar every before meals and at bedtime with coverage Plan / VTE VTE Prophylaxis Ordered?: Yes DOE ELLISON MD Jun 15, 2019 16:59
[2019-06-15] MEDS ORDERED: GLUCOSE 4 GM CHEW TABLET PO PRN (17:00)
[2019-06-15] MEDS ORDERED: DEXTROSE 50% 50 ML SYRINGE IV PRN (17:00)
[2019-06-15] MEDS ORDERED: GLUCAGON FOR INJ 1 MG VIAL (J1610) SC PRN (17:00)
[2019-06-15] MEDS: HumaLOG INSULIN (NovoLOG) PER UNIT SC SCH ×2 (17:30→21:00)
[2019-06-15 19:04] VITALS: BP 132/56
[2019-06-15] MEDS: WARFARIN SOD 5 MG TAB PO SCH (19:45)
[2019-06-15] MEDS: metFORMIN (GLUCOPHAGE) 500 MG TAB PO SCH (19:45)
[2019-06-15] MEDS: ENOXAPARIN 100MG/1ML SYRINGE (J1650) SC SCH (19:47)
[2019-06-15] MEDS: TORSEMIDE 20 MG TAB PO SCH (20:15)
[2019-06-15] MEDS: DOCUSATE SODIUM 100 MG CAP PO SCH (21:14)
[2019-06-15 22:00] VITALS: BP 109/59
[2019-06-16] MEDS: ENOXAPARIN 100MG/1ML SYRINGE (J1650) SC SCH ×2 (05:29→17:50)
[2019-06-16 06:00] VITALS: BP 109/70
[2019-06-16] MEDS: metFORMIN (GLUCOPHAGE) 500 MG TAB PO SCH ×2 (08:00→17:50)
[2019-06-16 08:38] LABS: HEMATOCRIT 41.2 % (36.0-47.0); HEMOGLOBIN 12.8 g/dl (12.0-15.5); MEAN CORPUSCULAR HEMOGLOBIN 29.9 pg (27.0-33.0); MEAN CORPUSCULAR HGB CONC 31.1 g/dl (32.0-36.5); MEAN CORPUSCULAR VOLUME 96.3 fl (80.0-96.0); PLATELET COUNT, AUTOMATED 250 10^3/uL (150-450); RED BLOOD COUNT 4.28 10^6/uL (4.00-5.40); WHITE BLOOD COUNT 8.9 10^3/uL (4.0-10.0)
[2019-06-16 08:49] LABS: INR 1.86; PROTHROMBIN TIME 21.2 SECONDS (11.8-14.0)
[2019-06-16 09:03] LABS: ALT/SGPT 19 U/L (12-78); BILIRUBIN,TOTAL 0.3 MG/DL (0.2-1.0); BLOOD UREA NITROGEN 19 MG/DL (7-18); CALCIUM LEVEL 8.5 MG/DL (8.8-10.2); CARBON DIOXIDE LEVEL 33 MEQ/L (21-32); CHLORIDE LEVEL 101 MEQ/L (98-107); CREATININE FOR GFR 0.75 MG/DL (0.55-1.30); GLOMERULAR FILTRATION RATE > 60.0 (>32); GLUCOSE, FASTING 132 MG/DL (70-100); POTASSIUM SERUM 3.8 MEQ/L (3.5-5.1); SODIUM LEVEL 140 MEQ/L (136-145); TOTAL PROTEIN 6.5 GM/DL (6.4-8.2)
[2019-06-16] MEDS: PRAVASTATIN 20 MG TAB PO SCH (09:22)
[2019-06-16] MEDS: HumaLOG INSULIN (NovoLOG) PER UNIT SC SCH ×4 (09:23→20:22)
[2019-06-16] MEDS: CitaloPRAM (CeleXA) 10 MG TABLET PO SCH (09:23)
[2019-06-16] MEDS: DOCUSATE SODIUM 100 MG CAP PO SCH ×2 (09:24→20:23)
--- NOTE | 2019-06-16 11:09 | IPNPDOC ---
Subjective Date Seen The patient was seen on 06/16/19. Subjective Chief Complaint/HPI Patient has less pain and swelling in her left calf General: Denies: ROS Unobtainable, Chills, Night Sweats, Fatigue, Malaise, Normal Appetite, Other Symptoms Constitutional: Denies: Chills, Fever, Malaise, Night Sweats, Weakness, Fatigue, Weight Loss, Lethargy, Other Eyes: Denies: Pain, Vision change, Conjunctivae inflammation, Eyelid inflammation, Redness, Other ENT: Denies: Head Aches, Ear Pain, Dysphagia, Sinus Congestion, Post Nasal Drip, Sore Throat, Epistaxis, Other Symptoms Skin: Denies: Rash, Lesions, Jaundice, Bruising, Itching, Dry, Breakdown, Nail Changes, Other Pulmonary: Denies: Dyspnea, Cough, Pleuritic Chest Pain, Other Symptoms Cardiovascular: Denies: Chest Pain, Palpitations, Orthopnea, Paroxysmal Noc. Dyspnea, Edema, Lt Headedness, Other Symptoms Gastrointestinal: Denies: Nausea, Vomiting, Abdominal Pain, Diarrhea, Constipation, Melena, Hematochezia, Other Symptoms Neurological: Denies: Weakness, Numbness, Incoordination, Change in speech, Confusion, Seizures, Other Symptoms Objective Physical Examination General Exam: Positive: Alert Eye Exam: Positive: PERRLA, Conjunctiva & lids normal ENT Exam: Positive: Atraumatic, Mucous membr. moist/pink Neck Exam: Positive: Supple Chest Exam: Positive: Clear to auscultation, Normal air movement Heart Exam: Positive: Rate Normal, Normal S1, Normal S2 Abdomen Exam: Positive: Normal bowel sounds, Soft Extremity Exam: Positive: Tenderness, Swelling ( left calf on palpation), Other (positive swelling and tenderness) Skin Exam: Positive: Nl turgor and temperature Neuro Exam: Positive: Strength at 5/5 X4 ext, Sensation Intact Psych Exam: Positive: Mental status NL, Mood NL Assessment /Plan Problems (1) DVT (deep venous thrombosis) Status: Acute Problem Text: 89 years old white female, obese, with multiple medical problems including hypertension, diabetes, 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 Patient was seen at 2 different urgent care centers and is started on by mouth antibiotics and elevation without any relief. Patient was found to have a new DVT on hold. DVT on the left deep venous system. Patient will be admitted for further treatment and management for her recurrent DVT Admit to [facility] floor Lovenox 1 mg/kg every 12 hours Coumadin 5 mg by mouth daily INR today is 1.8 Continue home meds Bed rest with the bedside commode PT evaluation once INR is therapeutic DC home once INR is more than 2 (2) HTN (hypertension) Problem Text: Under well control. Continue present meds (3) Diabetes mellitus Problem Text: Continue all home meds Fingerstick blood sugar every before meals and at bedtime with coverage Plan/VTE VTE Prophylaxis Ordered?: Yes VS, I&O, 24H, Fishbone Vital Signs/I&O Vital Signs Date Time Temp Pulse Resp B/P (MAP) Pulse Ox O2 Delivery O2 Flow Rate FiO2 06/16/19 06:00 98.1 83 17 109/70 (83) 92 06/15/19 11:23 Room Air I&O- Last 24 Hours up to 6 AM 06/16/19 06:00 Intake Total 630 ml Output Total 1350 ml Balance -720 ml Laboratory Data 24H LABS Laboratory Tests 2 06/15/19 11:47: Nucleated Red Blood Cells % (auto) 0.0, Anion Gap 6L, Glomerular Filtration Rate > 60.0, Uric Acid 6.7H, Blood Urea Nitrogen 26H, Creatinine 0.89, Sodium Level 138, Potassium Level 3.9, Chloride Level 100, Carbon Dioxide Level 32, Calcium Level 9.3, C-Reactive Protein, Quantitative 0.40H 06/15/19 13:02: Erythrocyte Sedimentation Rate 45H 06/15/19 15:29: Prothrombin Time 19.1H, Prothromb Time International Ratio 1.63 06/16/19 08:16: Prothrombin Time 21.2H, Prothromb Time International Ratio 1.86 06/16/19 08:18: Nucleated Red Blood Cells % (auto) 0.0, Anion Gap 6L, Glomerular Filtration Rate > 60.0, Blood Urea Nitrogen 19H, Creatinine 0.75, Sodium Level 140, Potassium Level 3.8, Chloride Level 101, Carbon Dioxide Level 33H, Calcium Level 8.5L, Aspartate Amino Transf (AST/SGOT) 16, Alanine Aminotransferase (ALT/SGPT) 19, Alkaline Phosphatase 96, Total Bilirubin 0.3, Total Protein 6.5, Albumin 3.0L, Albumin/Globulin Ratio 0.86L CBC/BMP Laboratory Tests 06/15/19 11:47 Red Blood Count 4.21, Mean Corpuscular Volume 98.8 H, Mean Corpuscular Hemoglobin 30.2, Mean Corpuscular Hemoglobin Concent 30.5 L, Red Cell Distribution Width 13.7, Calcium Level 9.3 06/16/19 08:18 Red Blood Count 4.28, Mean Corpuscular Volume 96.3 H, Mean Corpuscular Hemoglobin 29.9, Mean Corpuscular Hemoglobin Concent 31.1 L, Red Cell Distribution Width 13.7, Calcium Level 8.5 L, Aspartate Amino Transf (AST/SGOT) 16, Alanine Aminotransferase (ALT/SGPT) 19, Alkaline Phosphatase 96, Total Bilirubin 0.3, Total Protein 6.5, Albumin 3.0 L DOE ELLISON MD Jun 16, 2019 11:09
[2019-06-16] MEDS: TORSEMIDE 20 MG TAB PO SCH (13:55)
[2019-06-16 14:00] VITALS: BP 126/58
[2019-06-16] MEDS: WARFARIN SOD 5 MG TAB PO SCH (17:49)
[2019-06-16 22:00] VITALS: BP 92/52
[2019-06-17] MEDS: ENOXAPARIN 100MG/1ML SYRINGE (J1650) SC SCH (05:16)
[2019-06-17 06:00] VITALS: BP 140/88
[2019-06-17 07:23] LABS: INR 1.94; PROTHROMBIN TIME 21.9 SECONDS (11.8-14.0)
[2019-06-17] MEDS: DOCUSATE SODIUM 100 MG CAP PO SCH (08:55)
[2019-06-17] MEDS: PRAVASTATIN 20 MG TAB PO SCH (08:56)
[2019-06-17] MEDS: CitaloPRAM (CeleXA) 10 MG TABLET PO SCH (08:56)
[2019-06-17] MEDS: metFORMIN (GLUCOPHAGE) 500 MG TAB PO SCH (08:56)
[2019-06-17] MEDS: HumaLOG INSULIN (NovoLOG) PER UNIT SC SCH ×2 (08:57→12:42)
[2019-06-17] MEDS ORDERED: COUM1TAB17 PO (12:49)
--- NOTE | 2019-06-17 13:50 | DS.PDOC ---
Discharge Summary General Date of Admission Jun 15, 2019 at 16:31 Date of Discharge 06/17/19 Attending Physician: DOE ELLISON MD Discharge Summary PROCEDURES PERFORMED DURING STAY: [None]. ADMITTING DIAGNOSES: 1. [DVT, DISCHARGE DIAGNOSES: 1. [DVT, COMPLICATIONS/CHIEF COMPLAINT: DVT. HISTORY OF PRESENT ILLNESS: [89 years old, obese female with past medical history of DVT, CHF, diabetes mellitus status post cholecystectomy, status post [id number] surgery and the right-sided lumpectomy, hysterectomy, was seen at the 2 different urgent care centers with the chief complaint of redness and swelling of left lower extremity. On both centers. She was started on by mouth antibiotics without any any relief as patient is on Coumadin for history of DVT in the past. Denies chest mass chest pressure, chest pain, shortness of breath, nausea, vomiting, diarrhea, etc.]. HOSPITAL COURSE: [Agent was admitted with diagnosis of DVT of left lower extremity new superimposed on old patient is a gradient Coumadin 5 mg by mouth daily for 5 days and 2.5 mg by mouth daily for 2 days. Patient was started on Lovenox 1 mg/kg every 12 hours subcutaneous and also Coumadin was started at 5 mg by mouth daily. Initially patient INR was subtherapeutic, but today her INR is 1.9. Patient's symptoms have improved and she can be discharged home and follow with her PCP in one to 2-3 days for repeat INR. Patient will continue all her home medications as well]. DISCHARGE MEDICATIONS: Please see below. ALLERGIES: Please see below. PHYSICAL EXAMINATION ON DISCHARGE: VITAL SIGNS: Please see below. GENERAL: [Within normal limits] HEENT: [PERRLA,extraocular myuscles intact] NECK: [Within normal limits] CARDIOVASCULAR EXAMINATION: [S1, S2, regular] RESPIRATORY EXAMINATION: [Clear to A&P] ABDOMINAL EXAMINATION: [, Soft, nontender, bowel sounds present] EXTREMITIES: [No clubbing, cyanosis, edema] SKIN: [Within normal limits] NEUROLOGICAL EXAMINATION: [Focal motor sensory deficit PSYCHIATRIC EXAMINATION: [The normal limit] LABORATORY DATA: Please see below. IMAGING: [Vascular sonogram : There is evidence of deep vein thrombosis involving the deep vein structures of the left thigh as described above. The findings involving the common femoral vein seen today are new compared to an old exam of 04/25/2018 while the echogenic material and non-coaptability seen involving the popliteal vein today were also noted on that prior exam. I cannot rule out the possibility of acute disease superimposed upon chronic change. Additionally, the Chase's cyst seen on that prior exam has increased in size.] PROGNOSIS: [Good] ACTIVITY: [As tolerated]. DIET: [As tolerated] DISCHARGE PLAN: [Follow-up INR 2-3 days with PCP] DISPOSITION: . Home DISCHARGE INSTRUCTIONS: 1. [As per discharge instructions]. ITEMS TO FOLLOWUP ON ON OUTPATIENT: 1. [Repeat INR 2-3 days with PCP]. DISCHARGE CONDITION: [Stable]. TIME SPENT ON DISCHARGE: 25 minutes. Vital Signs/I&Os Vital Signs Date Time Temp Pulse Resp B/P (MAP) Pulse Ox O2 Delivery O2 Flow Rate FiO2 06/17/19 06:00 97.4 58 17 140/88 (105) 91 06/15/19 11:23 Room Air I&O- Last 24 Hours up to 6 AM 06/17/19 06:00 Intake Total 840 ml Output Total 1025 ml Balance -185 ml Laboratory Data Labs 24H Laboratory Tests 2 06/16/19 16:41: Bedside Glucose (Misc Panel) 172H 06/16/19 20:21: Bedside Glucose (Misc Panel) 113H 06/17/19 06:53: Prothrombin Time 21.9H, Prothromb Time International Ratio 1.94 FSBS Laboratory Tests Test 06/16/19 16:41 06/16/19 20:21 Range/Units Bedside Glucose (Misc Panel) 172 113 83-110 MG/DL Discharge Medications Scheduled Calcium Carbonate/Vitamin D3 (Calcium 600-Vit D3 800 Tablet) 1 Tab Tab, 1 TAB PO DAILY, (Reported) Cholecalciferol (Vitamin D3) (Vitamin D3) 5,000 Unit Tab, 5,000 UNIT PO QPM, (Reported) TAKES AT 1500 Citalopram Hydrobromide (Citalopram HBr) 10 Mg Tab, 10 MG PO DAILY, (Reported) Fluticasone/Vilanterol (Breo Ellipta 100-25 Mcg INH) 1 Each Blst.w.dev, 1 PUFF INH DAILY, (Reported) Metformin HCl (Metformin HCl) 500 Mg Tab, 500 MG PO BID, (Reported) AT 0600 AND 1800. Potassium Chloride (Klor-Con M20) 20 Meq Tabcr, 20 MEQ PO DAILY, (Reported) Pravastatin Sodium (Pravachol) 80 Mg Tab, 80 MG PO DAILY, (Reported) Torsemide (Torsemide) 20 Mg Tab, 20 MG PO DAILY, (Reported) TAKES AT 1500 Vitamin B Complex (Vitamin B Complex) 1 Each Tablet, 1 TAB PO DAILY, (Reported) Warfarin Sodium (Coumadin) 5 Mg Tablet, 5 MG PO DAILY@17 Zinc (Zinc) 50 Mg Tablet, 50 MG PO DAILY, (Reported) Scheduled PRN Acetaminophen (Acetaminophen) 500 Mg Tab, 500 MG PO DAILY PRN for PAIN, (Reported) Albuterol Sulfate (Proair Hfa) 108 Mcg/Act Aer, 2 PUFF INH Q4H PRN for SHORTNESS OF BREATH, (Reported) Allergies Coded Allergies: No Known Allergies (Unverified , 06/15/19) DOE ELLISON MD Jun 17, 2019 13:50
== END 2019-06-17 13:48 | disposition home or self-care (01) | DRG 301 ==
LOC: M ED 11:22 → M ED INP 16:31 → M MSPAV 19:01 → UNDODISIN 19:15
PROVIDERS: ADMIT Internal Medicine; ATTEND Internal Medicine
DX: I82.412 Acute embolism and thrombosis of left femoral vein (principal); E66.9 Obesity, unspecified; I50.9 Heart failure, unspecified; E11.9 Type 2 diabetes mellitus without complications; Z79.899 Other long term (current) drug therapy; Z79.01 Long term (current) use of anticoagulants; E78.5 Hyperlipidemia, unspecified; I11.0 Hypertensive heart disease with heart failure

== ENCOUNTER 2019-06-20 13:02 | Inpatient (IN) | payer MEDICARE ==
[~2019-06-20] VITALS: Ht 149.9 cm; Wt 93.5 kg
[2019-06-20 10:20] VITALS: BP 132/67
[~2019-06-20 13:02] MED LIST changes: +B COTAB3 PO; +BREO1INH INH; +KEFL500C17 PO; +WARF-23 PO; +ZINC1TAB2 PO
[2019-06-20] MEDS: TORSEMIDE 20 MG TAB PO SCH (15:00)
[2019-06-20] MEDS ORDERED: cefTRIAXone SOD 2 GM in D5W MINI-BAG PLUS 50 ML IV ONE (15:15)
[2019-06-20 16:42] LABS: BASO % 0.2 % (0.0-1.0); EOS # 0.2 10^3/uL (0.0-0.50); EOS % 1.4 % (0.0-3.0); HEMATOCRIT 37.6 % (36.0-47.0); HEMOGLOBIN 11.8 g/dl (12.0-15.5); MEAN CORPUSCULAR HEMOGLOBIN 30.5 pg (27.0-33.0); MEAN CORPUSCULAR HGB CONC 31.4 g/dl (32.0-36.5); MEAN CORPUSCULAR VOLUME 97.2 fl (80.0-96.0); MONO # 1.2 10^3/uL (0.0-0.8); MONO % 10.8 % (0.0-5.0); NEUTROPHILS # 8.1 10^3/uL (1.8-7.7); NEUTROPHILS % 70.3 % (36.0-66.0); PLATELET COUNT, AUTOMATED 236 10^3/uL (150-450); RED BLOOD COUNT 3.87 10^6/uL (4.00-5.40); WHITE BLOOD COUNT 11.5 10^3/uL (4.0-10.0)
[2019-06-20] MEDS ORDERED: WARFARIN SOD 5 MG TAB PO SCH (17:00)
[2019-06-20] MEDS: NS 1,000 ML IV SCH (17:01)
[2019-06-20 17:02] LABS: ALBUMIN 3.2 GM/DL (3.2-5.2); ALT/SGPT 46 U/L (12-78); AMYLASE 56 U/L (25-115); BILIRUBIN,DIRECT 0.1 MG/DL (0.0-0.2); BILIRUBIN,TOTAL 0.3 MG/DL (0.2-1.0); BLOOD UREA NITROGEN 22 MG/DL (7-18); C REACTIVE PROTEIN QUANTITATIV 1.01 MG/DL (0.00-0.30); CALCIUM LEVEL 9.3 MG/DL (8.8-10.2); CARBON DIOXIDE LEVEL 32 MEQ/L (21-32); CHLORIDE LEVEL 101 MEQ/L (98-107); CREATININE FOR GFR 0.77 MG/DL (0.55-1.30); GLOMERULAR FILTRATION RATE > 60.0 (>32); GLUCOSE, FASTING 64 MG/DL (70-100); POTASSIUM SERUM 3.8 MEQ/L (3.5-5.1); SODIUM LEVEL 139 MEQ/L (136-145); TOTAL PROTEIN 6.7 GM/DL (6.4-8.2)
[2019-06-20] MEDS ORDERED: ACETAMINOPHEN 325 MG TAB PO ONE (17:30)
[2019-06-20 18:20] LABS: INR 1.82; PROTHROMBIN TIME 20.8 SECONDS (11.8-14.0)
--- NOTE | 2019-06-20 19:39 | ECGEPIP ---
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
--- NOTE | 2019-06-20 20:04 | REPVR ---
EXAM: US Duplex Left Lower Extremity Veins, Limited EXAM DATE/TIME: 06/20/2019 6:02 PM CLINICAL HISTORY: 89 years old, female; Swelling (edema) of limb; Lower extremity, left; Additional info: Dvt left leg, eval for extension TECHNIQUE: Imaging protocol: Real-time Duplex ultrasound of the Left Lower Extremity with 2-D oquendo scale, color Doppler flow and spectral waveform analysis with image documentation. Limited exam focused on the left lower extremity veins. COMPARISON: US Duplex, Ext,LOWER veins,unilat 06/15/2019 12:34 PM FINDINGS: There is a linear echogenic area within the common femoral vein and seen on previous exams consistent with a band of fibrous tissue/fibrin. At the popliteal vein there is a thin echogenic area located posterior/nonocclusive and probably the result of chronic thrombus. This is seen on the previous examination and unchanged. This is probably also unchanged from an examination of 04/25/2018. Venous return is noted throughout the deep veins of the left leg. There is a popliteal cyst estimated at 5 CM in length by 2 CM in thickness and also seen on the previous exams. IMPRESSION: 1. 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 Venous return noted through these areas and no occlusion. 2. Moderate popliteal cyst. Electronically signed by: Lazaro David On 06/20/2019 20:04:10 PM
--- NOTE | 2019-06-20 20:23 | HPEPDOC ---
[facility] Medical History & Physical Date of Admission Jun 20, 2019 Date of Service: Jun 20, 2019 Primary Care Physician: Mert Mercado Attending Physician: NANCY MCCONNELL MD History and Physical Time of Service 830PM CHIEF COMPLAINT: Leg swelling HISTORY OF PRESENT ILLNESS: is an 89 female who presented with complaints of worsening left lower extremity redness, pain and swelling. She was initially diagnosed with cellulitis on June 11 and started on Keflex. On June 15 she returned to the hospital with worsening redness and swelling and was diagnosed with a DVT and admitted to the hospital while bridging to Coumadin; according to the patient's daughter, the antibiotics were discontinued. After being discharged on Jun 17,the patient continued to experience lower extremity pain, redness and swelling; she had difficulties walking, so she came back to the hospital today. The patient denies having fevers, denies having chills, denies having chest pain, denies having shortness of breath, denies feeling dizzy. Per discussion with the ED provider she has leukocytosis and elevated inflammatory markers; repeat left lower extremity ultrasound showed findings similar to the previous ultrasound. The ED provider requested admission for this elderly patient because she is having difficulties walking at home and ordered ceftriaxone. REVIEW OF SYSTEMS: 12 point review of systems negative except as listed in HPI PAST MEDICAL/SURGICAL HISTORY: 1. Aqp-hhnopeq-beerjwude diabetes. 2. Paroxysmal atrial fibrillation 3. Recently diagnosed left lower extremity DVT 4. GERD 5. History of CVA with residual memory deficit / Dyslipidemia 6 Unsteady Gait (uses cane and walker) 7. Status post hysterectomy. 8. Status post laparoscopic cholecystectomy. 9. Status post right breast lumpectomy with axillary lymph node dissection 10. Status post incisional hernia repair 11. Status post appendectomy. SOCIAL HISTORY: Does not smoke Has six children Lives in [place] during the winter and in [place], [place] in the spring and summer The patient's children assist her with her IADLs FAMILY HISTORY: Dementia ALLERGIES: Please see below. HOME MEDICATIONS: Please see below. PHYSICAL EXAMINATION: VITAL SIGNS: see below GENERAL APPEARANCE: Well nourished, well-developed, not in apparent distress HEENT: Normocephalic, atraumatic. Mucous members moist and pink CARDIOVASCULAR: Regular rate and rhythm. No murmurs, rubs or gallops LUNGS: Clear to auscultation bilaterally on room air MUSCULOSKELETAL: Range of motion intact in all 4 extremities INTEGUMENT: There is redness, swelling, warmth, and thickening of the subcutaneous tissue at the anterior aspect of the left lower extremity NEUROLOGICAL: Cranial nerves II-12 are grossly intact. Speech is not dysarthric PSYCHIATRIC: Alert and oriented to person, place and time, able to understand and follow commands LABORATORY DATA: See below. IMAGING: Left lower extremity ultrasound done on June 20 "IMPRESSION: 1. 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 Venous return noted through these areas and no occlusion. 2. Moderate popliteal cyst." MICROBIOLOGY: Please see below. ASSESSMENT: Ms. Dent is an 89 year old female with a past medical history of anw-lvecesl-drbcbyxwv diabetes, paroxysmal atrial fibrillation and recently diagnosed DVT on Coumadin, GERD, history of CVA, and history of dyslipidemia will be admitted for management of left lower extremity cellulitis. PLAN: 1. LLE Cellulitis Predisposing factors include recently diagnosed left lower extremity DVT & obesity The only SIRS criteria was leukocytosis ESR is elevated Report of lower extremity duplex was reviewed Plan: admit to [facility] / IV Vancomycin 2. Unsteady Gait Uses cane and walker at home Was recently hospitalized Is less mobile that at her baseline because of LLE cellulitis Plan: Case management consult for assistance obtaining a home health aide / PT eval to determine if the patient is a candidate for home or out patient PT 3. Fxh-hnkhffs-sebmskbny diabetes A1C 9.0 in March Plan: f/u accuchecks / hypoglycemia protocol / sliding scale / hold oral anti- glycemics 4. Paroxysmal atrial fibrillation Has had a CVA with residual memory deficit INR subtherapeutic today Plan: Increase Warfarin from 5 to 6mg daily and follow-up INR 5. 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 / recommend cardiovascular exercise for 40 min 4-5 days a week DVT px w Warfarin Dispo Pending clinical course Vital Signs Vital Signs Date Time Temp Pulse Resp B/P (MAP) Pulse Ox O2 Delivery O2 Flow Rate FiO2 06/20/19 18:10 97.1 68 20 144/64 (90) 96 Room Air Laboratory Data Labs 24H Laboratory Tests 2 06/20/19 16:21: Erythrocyte Sedimentation Rate 59H, Prothrombin Time 20.8H, Prothromb Time I nternational Ratio 1.82 06/20/19 16:22: Immature Granulocyte % (Auto) 0.3, White Blood Count 11.5H, Red Blood Count 3.87L, Hemoglobin 11.8L, Hematocrit 37.6, Mean Corpuscular Volume 97.2H, Mean Corpuscular Hemoglobin 30.5, Mean Corpuscular Hemoglobin Concent 31.4L, Red Cell Distribution Width 13.5, Platelet Count 236, Neutrophils (%) (Auto) 70.3H, Lymphocytes (%) (Auto) 17.0L, Monocytes (%) (Auto) 10.8H, Eosinophils (%) (Auto) 1.4, Basophils (%) (Auto) 0.2, Neutrophils # (Auto) 8.1H, Lymphocytes # (Auto) 2.0, Monocytes # (Auto) 1.2H, Eosinophils # (Auto) 0.2, Basophils # (Auto) 0.0, Nucleated Red Blood Cells % (auto) 0.0, Anion Gap 6L, Glomerular Filtration Rate > 60.0, Lactic Acid Level 1.0, Calcium Level 9.3, Aspartate Amino Transf (AST/SGOT) 41H, Alanine Aminotransferase (ALT/SGPT) 46, Alkaline Phosphatase 104, Total Bilirubin 0.3, Direct Bilirubin 0.1, C-Reactive Protein, Quantitative 1.01H, Total Protein 6.7, Albumin 3.2, Albumin/Globulin Ratio 0.91L, Amylase Level 56 CBC/BMP Laboratory Tests 06/20/19 16:22 Red Blood Count 3.87 L, Mean Corpuscular Volume 97.2 H, Mean Corpuscular Hemoglobin 30.5, Mean Corpuscular Hemoglobin Concent 31.4 L, Red Cell Distribution Width 13.5, Neutrophils (%) (Auto) 70.3 H, Lymphocytes (%) (Auto) 17.0 L, Monocytes (%) (Auto) 10.8 H, Eosinophils (%) (Auto) 1.4, Basophils (%) (Auto) 0.2, Neutrophils # (Auto) 8.1 H, Lymphocytes # (Auto) 2.0, Monocytes # (Auto) 1.2 H, Eosinophils # (Auto) 0.2, Basophils # (Auto) 0.0 Microbiology Microbiology 06/20/19 Blood Culture, Received Pending 8/17/19 Blood Culture, Received Pending Home Medications Scheduled Calcium Carbonate/Vitamin D3 (Calcium 600-Vit D3 800 Tablet) 1 Tab Tab, 1 TAB PO DAILY Cholecalciferol (Vitamin D3) (Vitamin D3) 5,000 Unit Tab, 5,000 UNIT PO QPM TAKES AT 1500 Citalopram Hydrobromide (Celexa) 20 Mg Tablet, 20 MG PO DAILY Fluticasone/Vilanterol (Breo Ellipta 100-25 Mcg INH) 1 Each Blst.w.dev, 1 PUFF INH DAILY Glipizide (Glipizide) 5 Mg Tablet, 5 MG PO DAILY Metformin HCl (Metformin HCl) 500 Mg Tab, 500 MG PO BID AT 0600 AND 1800. Potassium Chloride (Klor-Con M20) 20 Meq Tabcr, 20 MEQ PO DAILY Pravastatin Sodium (Pravachol) 80 Mg Tab, 80 MG PO DAILY Torsemide (Torsemide) 20 Mg Tab, 20 MG PO DAILY TAKES AT 1500 Vitamin B Complex (Vitamin B Complex) 1 Each Tablet, 1 TAB PO DAILY Warfarin Sodium (Warfarin Sodium) 5 Mg Tablet, 5 MG PO QPM AT 1800 Zinc (Zinc) 50 Mg Tablet, 50 MG PO DAILY Scheduled PRN Acetaminophen (Acetaminophen) 500 Mg Tab, 500 MG PO DAILY PRN for PAIN Albuterol Sulfate (Proair Hfa) 108 Mcg/Act Aer, 2 PUFF INH Q4H PRN for SHORTNESS OF BREATH Allergies Coded Allergies: No Known Allergies (Unverified , 06/15/19) A-FIB/CHADSVASC A-FIB History Current/History of A-Fib/PAF?: Yes Current PO Anticoag Therapy: Yes Treatment Treatment ordered: NANCY Munoz MD Jun 20, 2019 20:23
[2019-06-20] MEDS ORDERED: WARF-23 PO (20:35)
[2019-06-20] MEDS ORDERED: GLIP5TAB8 PO (20:35)
[2019-06-20] MEDS ORDERED: CELE20TA PO (20:35)
[2019-06-20] MEDS ORDERED: VANCOMYCIN HCL 1,000 MG, VIAL MATE ADAPTER 1 EACH in D5W 250 ML IV ONE (20:45)
[2019-06-20] MEDS: HumaLOG INSULIN (NovoLOG) PER UNIT SC SCH (21:00)
[2019-06-20] MEDS ORDERED: DEXTROSE 50% 50 ML SYRINGE IV PRN (21:15)
[2019-06-20] MEDS ORDERED: ALBUTEROL 90 MCG/ACT 8GM HFA INHALER INH PRN (21:15)
[2019-06-20 22:20] VITALS: BP 132/67
[2019-06-20] MEDS: WARFARIN SOD 3 MG TAB PO SCH (23:25)
--- NOTE | 2019-06-20 23:53 | PHACANCOPD ---
PHARMACY VANCOMYCIN DOSING Pt Demographics Demographics Patient Age:89 , Weight:86.500 , Gender: female Adjusted Body Weight Date: 06/20/19, Adjusted Body Weight: Kg Events Past 24 Hours Events Past 24 Hours: NO: Dialysis, Diuretic Therapy, Change in CrCl, Fever, Elevation in WBC, Pending Diagnostics, Pending Procedures, Other Vancomycin Vancomycin Target Ranges: 15-20 mcg/ml Vancomycin Load Y/N: No Load Dose Date Time Vancomycin Load Dose: Date: Time: Vancomycin Dose Date: 06/20/19. Current Vancomycin Dose: [1000mg q18h] Intermittent Dosing?: No Labs Labs Item Value Date Time White Blood Count 11.5 10^3/uL H 06/20/19 1622 Glomerular Filtration Rate > 60.0 06/20/19 1622 Creatinine 0.77 MG/DL 06/20/19 1622 Blood Urea Nitrogen 22 MG/DL H 06/20/19 1622 Vital Signs Label Value Date Time Patient Temperature 97.0 degrees F 06/20/192123 Temperature Source Oral 06/20/192123 Micro Microbiology 06/20/19 Blood Culture, Received Pending 06/20/19 Blood Culture, Received Pending Creatinine Clearance Date:06/20/19. Creatinine Clearance: [~30]. Pending Labs Trough - @1100 Assessment and Plan Maintaining Current Dose?: Yes Reason for dose change: No Dose Change Pharmacist Note Pharmacist Note Date: 06/20/19. Pharmacist note:Will monitor and make adjustments as needed. SHANTHI LYONS [facility] Jun 20, 2019 23:53
[2019-06-21] MEDS: NS 1,000 ML IV SCH (05:50)
[2019-06-21] MEDS: ACETAMINOPHEN 500 MG TAB PO PRN (05:54)
[2019-06-21 06:00] VITALS: BP 124/70
[2019-06-21 06:42] LABS: HEMATOCRIT 37.4 % (36.0-47.0); HEMOGLOBIN 11.8 g/dl (12.0-15.5); MEAN CORPUSCULAR HEMOGLOBIN 29.4 pg (27.0-33.0); MEAN CORPUSCULAR HGB CONC 31.6 g/dl (32.0-36.5); MEAN CORPUSCULAR VOLUME 93.3 fl (80.0-96.0); PLATELET COUNT, AUTOMATED 255 10^3/uL (150-450); RED BLOOD COUNT 4.01 10^6/uL (4.00-5.40); WHITE BLOOD COUNT 11.9 10^3/uL (4.0-10.0)
[2019-06-21 07:07] LABS: BLOOD UREA NITROGEN 14 MG/DL (7-18); CALCIUM LEVEL 8.8 MG/DL (8.8-10.2); CARBON DIOXIDE LEVEL 25 MEQ/L (21-32); CHLORIDE LEVEL 106 MEQ/L (98-107); CREATININE FOR GFR 0.61 MG/DL (0.55-1.30); GLOMERULAR FILTRATION RATE > 60.0 (>32); GLUCOSE, FASTING 119 MG/DL (70-100); POTASSIUM SERUM 4.4 MEQ/L (3.5-5.1); SODIUM LEVEL 140 MEQ/L (136-145)
[2019-06-21 07:47] LABS: INR 2.02; PROTHROMBIN TIME 22.6 SECONDS (11.8-14.0)
[2019-06-21] MEDS: PRAVASTATIN 20 MG TAB PO SCH (08:30)
[2019-06-21] MEDS: CitaloPRAM (CeleXA) 20 MG TAB PO SCH (08:30)
[2019-06-21] MEDS: HumaLOG INSULIN (NovoLOG) PER UNIT SC SCH ×4 (08:32→21:00)
[2019-06-21] MEDS: BREO ELLIPTA INH SCH (09:00)
--- NOTE | 2019-06-21 09:15 | REP ---
CHEST, PA AND LATERAL: 06/20/2019. Comparison: 11/06/2018 CT and chest x-ray. Clinical history: Bibasilar rales. Findings: Lungs are well inflated. Study again shows infrahilar density on the right, not much change from the previous study. However, effusions are not present currently. There is cardiomegaly with left atrial and ventricular enlargement and some vascular redistribution. Venous hypertension is noted. I do not see Swapnil B lines. There are axillary surgical clips on the right. Airway is intact. Fibrosis mid and upper lung zones. Tortuous calcified aorta, unchanged. Spine shows marginal osteophytes without compression deformity. Impression: 1. Cardiomegaly with left atrial and left ventricular enlargement and some venous hypertension. No interstitial or thomas edema. No pleural effusion. 2. Infrahilar opacity on the right may reflect chronic fibrotic or atelectatic change. Stable finding from 11/06/2018. Superimposed patchy infiltrate difficult to exclude. 3. The aorta is mildly tortuous but unchanged in appearance. There are calcifications near its arch. 4. Axillary surgical clips on the right also stable. No acute bony finding. Electronically Signed by Woo Viera MD 06/21/2019 08:02 P
--- NOTE | 2019-06-21 12:26 | IPNPDOC ---
Subjective Date Seen The patient was seen on 06/21/19. Subjective Chief Complaint/HPI He pain is a little better today. Worked with PT and ambulated in the room. left leg is swollen wrm with discoloration int eh lower part. No fever or chills, no chest pain or sob , no abdominal pain , nausea or vomiting or diarrhea. Objective Physical Examination General Exam: Positive: Alert, Cooperative, No Acute Distress Eye Exam: Positive: PERRLA, Conjunctiva & lids normal, EOMI; Negative: Sclera icteric Neck Exam: Positive: Supple; Negative: JVD, thyromegaly Chest Exam: Positive: Clear to auscultation, Normal air movement Heart Exam: Positive: Rate Normal, Regular Rhythm, Normal S1, Normal S2, M urmurs (soft systolic murmur best at the base of the heart. ); Negative: Rubs Abdomen Exam: Positive: Normal bowel sounds, Soft; Negative: Tenderness, Hepatospenomegaly Extremity Exam: Positive: Tenderness (left leg), Swelling (left leg); Negative: Clubbing, Cyanosis, Edema Skin Exam: Positive: Other skin issue (statsis changes in the left lower leg. ) Assessment /Plan Assessment 89 year old female with PMH of Kaj-mfadxoe-rievaisig diabetes, Paroxysmal atrial fibrillation on Coumadin, Recently diagnosed left lower extremity DVT, GERD, History of CVA with residual memory deficit / Dyslipidemia, Unsteady Gait (uses cane and walker), Obesity, Status post right breast lumpectomy with axillary lymph node dissection for metastatic infiltrating ductal carcinoma in 2004, super ficial thrombophlebitis at the left ankle many years ago left popliteal cyst who presented with complaints of worsening left lower extremity redness, pain and swelling. She was initially diagnosed with cellulitis on June 11 and started on Keflex. On June 15 she returned to the hospital with worsening redness and swelling and was diagnosed with a DVT. After being discharged on Jun 17,the patient continued to experience lower extremity pain, redness and swelling; she had difficulties walking, so she came back to the hospital. She was admitted for left lower extremity cellulitis, difficulty in ambulation. Post thrombosis syndrome I think the pain , swelling, warmth and redness is most probably de to chronic left dvt with partial occlusion. leg elevation, compression stockings or gege wrap. LLE Cellulitis Predisposing factors include recently diagnosed left lower extremity DVT & obesity The only SIRS criteria was leukocytosis ESR is elevated Report of lower extremity duplex was reviewed ceftriaxone and vanco. Unsteady Gait Uses cane and walker at home Was recently hospitalized Is less mobile that at her baseline because of LLE cellulitis PT and OT eval. 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 DVT px w Warfarin Plan/VTE VTE Prophylaxis Ordered?: Yes VS, I&O, 24H, [place] Vital Signs/I&O Vital Signs Date Time Temp Pulse Resp B/P (MAP) Pulse Ox O2 Delivery O2 Flow Rate FiO2 06/21/19 06:00 97.8 17 124/70 (88) 94 06/20/19 22:20 68 06/20/19 21:24 Room Air I&O- Last 24 Hours up to 6 AM 06/21/19 06:00 Intake Total 50 ml Output Total 400 ml Balance -350 ml Laboratory Data 24H LABS Laboratory Tests 2 06/20/19 16:21: Erythrocyte Sedimentation Rate 59H, Prothrombin Time 20.8H, Prothromb Time International Ratio 1.82 06/20/19 16:22: Immature Granulocyte % (Auto) 0.3, White Blood Count 11.5H, Red Blood Count 3.87L, Hemoglobin 11.8L, Hematocrit 37.6, Mean Corpuscular Volume 97.2H, Mean Corpuscular Hemoglobin 30.5, Mean Corpuscular Hemoglobin Concent 31.4L, Red Cell Distribution Width 13.5, Platelet Count 236, Neutrophils (%) (Auto) 70.3H, Lymphocytes (%) (Auto) 17.0L, Monocytes (%) (Auto) 10.8H, Eosinophils (%) (Auto) 1.4, Basophils (%) (Auto) 0.2, Neutrophils # (Auto) 8.1H, Lymphocytes # (Auto) 2.0, Monocytes # (Auto) 1.2H, Eosinophils # (Auto) 0.2, Basophils # (Auto) 0.0, Nucleated Red Blood Cells % (auto) 0.0, Anion Gap 6L, Glomerular Filtration Rate > 60.0, Lactic Acid Level 1.0, Calcium Level 9.3, Aspartate Amino Transf (AST/SGOT) 41H, Alanine Aminotransferase (ALT/SGPT) 46, Alkaline Phosphatase 104, Total Bilirubin 0.3, Direct Bilirubin 0.1, C-Reactive Protein, Quantitative 1.01H, Total Protein 6.7, Albumin 3.2, Albumin/Globulin Ratio 0.91L, Amylase Level 56 06/20/19 23:12: Bedside Glucose (Misc Panel) 115H 06/21/19 06:19: Nucleated Red Blood Cells % (auto) 0.0, Anion Gap 9, Glomerular Filtration Rate > 60.0, Calcium Level 8.8, Blood Urea Nitrogen 14, Creatinine 0.61, Sodium Level 140, Potassium Level 4.4, Chloride Level 106, Carbon Dioxide Level 25 06/21/19 07:22: Prothrombin Time 22.6H, Prothromb Time International Ratio 2.02 CBC/BMP Laboratory Tests 06/20/19 16:22 Red Blood Count 3.87 L, Mean Corpuscular Volume 97.2 H, Mean Corpuscular Hemoglobin 30.5, Mean Corpuscular Hemoglobin Concent 31.4 L, Red Cell Distribution Width 13.5, Neutrophils (%) (Auto) 70.3 H, Lymphocytes (%) (Auto) 17.0 L, Monocytes (%) (Auto) 10.8 H, Eosinophils (%) (Auto) 1.4, Basophils (%) (Auto) 0.2, Neutrophils # (Auto) 8.1 H, Lymphocytes # (Auto) 2.0, Monocytes # (Auto) 1.2 H, Eosinophils # (Auto) 0.2, Basophils # (Auto) 0.0 06/21/19 06:19 Red Blood Count 4.01, Mean Corpuscular Volume 93.3, Mean Corpuscular Hemoglobin 29.4, Mean Corpuscular Hemoglobin Concent 31.6 L, Red Cell Distribution Width 13.7, Calcium Level 8.8 Microbiology Microbiology 06/20/19 Blood Culture, Received Pending 06/20/19 Blood Culture, Received Pending SAMANTHA SOTO MD Jun 21, 2019 08:04
[2019-06-21 14:00] VITALS: BP 115/82
[2019-06-21] MEDS: TORSEMIDE 20 MG TAB PO SCH (14:19)
[2019-06-21] MEDS: glipiZIDE (GLUCOTROL) 5 MG TAB PO SCH (14:19)
[2019-06-21] MEDS ORDERED: WARFARIN SOD 1 MG TAB PO ONE (17:00)
[2019-06-21] MEDS: VANCOMYCIN HCL 1,000 MG, VIAL MATE ADAPTER 1 EACH in D5W 250 ML IV SCH (17:28)
[2019-06-21] MEDS: WARFARIN SOD 3 MG TAB PO SCH (17:29)
[2019-06-21 22:00] VITALS: BP 101/61
[2019-06-22] MEDS: ACETAMINOPHEN 500 MG TAB PO PRN (03:11)
[2019-06-22 06:00] VITALS: BP 97/68
[2019-06-22 06:41] LABS: BASO % 0.2 % (0.0-1.0); EOS # 0.2 10^3/uL (0.0-0.50); EOS % 1.7 % (0.0-3.0); HEMATOCRIT 37.6 % (36.0-47.0); HEMOGLOBIN 11.7 g/dl (12.0-15.5); LYMPH # 1.5 10^3/uL (1.5-4.5); LYMPH % 13.2 % (24.0-44.0); MEAN CORPUSCULAR HGB CONC 31.1 g/dl (32.0-36.5); MEAN CORPUSCULAR VOLUME 96.4 fl (80.0-96.0); MONO # 1.1 10^3/uL (0.0-0.8); MONO % 9.6 % (0.0-5.0); NEUTROPHILS # 8.5 10^3/uL (1.8-7.7); PLATELET COUNT, AUTOMATED 233 10^3/uL (150-450); WHITE BLOOD COUNT 11.3 10^3/uL (4.0-10.0)
[2019-06-22 06:51] LABS: INR 2.36; PROTHROMBIN TIME 25.6 SECONDS (11.8-14.0)
[2019-06-22 07:04] LABS: BLOOD UREA NITROGEN 17 MG/DL (7-18); CALCIUM LEVEL 8.6 MG/DL (8.8-10.2); CARBON DIOXIDE LEVEL 32 MEQ/L (21-32); CHLORIDE LEVEL 104 MEQ/L (98-107); CREATININE FOR GFR 0.79 MG/DL (0.55-1.30); GLOMERULAR FILTRATION RATE > 60.0 (>32); GLUCOSE, FASTING 131 MG/DL (70-100); POTASSIUM SERUM 3.7 MEQ/L (3.5-5.1); SODIUM LEVEL 140 MEQ/L (136-145)
[2019-06-22] MEDS: glipiZIDE (GLUCOTROL) 5 MG TAB PO SCH (07:54)
[2019-06-22] MEDS: CitaloPRAM (CeleXA) 20 MG TAB PO SCH (07:54)
[2019-06-22] MEDS: PRAVASTATIN 20 MG TAB PO SCH (07:54)
[2019-06-22] MEDS: HumaLOG INSULIN (NovoLOG) PER UNIT SC SCH ×4 (07:54→21:00)
--- NOTE | 2019-06-22 10:45 | IPNPDOC ---
Subjective Date Seen The patient was seen on 06/22/19. Subjective Chief Complaint/HPI Her left leg swelling and redness is less today. Though she says that she had a bad night as it was burning and throbbing all night. No fever or chills, no chest pain ro sob , no abdominal pain , nausea or vomiting or diarrhea Objective Physical Examination General Exam: Positive: Alert, Cooperative, No Acute Distress Eye Exam: Positive: PERRLA, Conjunctiva & lids normal, EOMI; Negative: Sclera icteric Neck Exam: Positive: Supple; Negative: JVD, thyromegaly Chest Exam: Positive: Clear to auscultation, Normal air movement Heart Exam: Positive: Rate Normal, Regular Rhythm, Normal S1, Normal S2, Murmurs (soft systolic murmur best at the base of the heart. ); Negative: Rubs Abdomen Exam: Positive: Normal bowel sounds, Soft; Negative: Tenderness, Hepatospenomegaly Extremity Exam: Positive: Tenderness (left leg), Swelling (left leg); Negative: Clubbing, Cyanosis, Edema Skin Exam: Positive: Other skin issue (statsis changes in the left lower leg. ) Assessment /Plan Assessment 89 year old female with PMH of Rib-orqveny-eltscvysk diabetes, Paroxysmal atrial fibrillation on Coumadin, Recently diagnosed left lower extremity DVT, GERD, History of CVA with residual memory deficit / Dyslipidemia, Unsteady Gait (uses cane and walker), Obesity, Status post right breast lumpectomy with axillary lymph node dissection for metastatic infiltrating ductal carcinoma in 2004, super ficial thrombophlebitis at the left ankle many years ago left popliteal cyst who presented with complaints of worsening left lower extremity redness, pain and swelling. She was initially diagnosed with cellulitis on June 11 and started on Keflex. On June 15 she returned to the hospital with worsening redness and swelling and was diagnosed with a DVT. After being discharged on Jun 17,the patient continued to experience lower extremity pain, redness and swelling; she had difficulties walking, so she came back to the hospital. She was admitted for left lower extremity cellulitis, difficulty in ambulation. Post thrombosis syndrome I think the most of pain , swelling, warmth and redness is most probably de to chronic left dvt with partial occlusion. leg elevation, compression stockings or gege wrap. LLE Cellulitis Predisposing factors include recently diagnosed left lower extremity DVT & obesity The only SIRS criteria was leukocytosis ESR is elevated Report of lower extremity duplex was reviewed ceftriaxone and vanco. Unsteady Gait Uses cane and walker at home Was recently hospitalized Is less mobile that at her baseline because of LLE cellulitis PT and OT eval. 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 DVT px w Warfarin Plan/VTE VTE Prophylaxis Ordered?: Yes VS, I&O, 24H, Fishbone Vital Signs/I&O Vital Signs Date Time Temp Pulse Resp B/P (MAP) Pulse Ox O2 Delivery O2 Flow Rate FiO2 06/22/19 06:00 98.8 58 18 97/68 (78) 98 06/20/19 21:24 Room Air I&O- Last 24 Hours up to 6 AM 06/22/19 06:00 Intake Total 3740 ml Output Total 750 ml Balance 2990 ml Laboratory Data 24H LABS Laboratory Tests 2 06/21/19 11:14: Bedside Glucose (Misc Panel) 129H 06/21/19 17:14: Bedside Glucose (Misc Panel) 87 06/21/19 20:51: Bedside Glucose (Misc Panel) 157H 06/22/19 06:20: Immature Granulocyte % (Auto) 0.3, White Blood Count 11.3H, Red Blood Count 3.90L, Hemoglobin 11.7L, Hematocrit 37.6, Mean Corpuscular Volume 96.4H, Mean Corpuscular Hemoglobin 30.0, Mean Corpuscular Hemoglobin Concent 31.1L, Red Cell Distribution Width 13.6, Platelet Count 233, Neutrophils (%) (Auto) 75.0H, Lymphocytes (%) (Auto) 13.2L, Monocytes (%) (Auto) 9.6H, Eosinophils (%) (Auto) 1.7, Basophils (%) (Auto) 0.2, Neutrophils # (Auto) 8.5H, Lymphocytes # (Auto) 1.5, Monocytes # (Auto) 1.1H, Eosinophils # (Auto) 0.2, Basophils # (Auto) 0.0, Nucleated Red Blood Cells % (auto) 0.0, Prothrombin Time 25.6H, Prothromb Time International Ratio 2.36, Anion Gap 4L, Glomerular Filtration Rate > 60.0, Blood Urea Nitrogen 17, Creatinine 0.79, Sodium Level 140, Potassium Level 3.7, Chloride Level 104, Carbon Dioxide Level 32, Calcium Level 8.6L CBC/BMP Laboratory Tests 06/22/19 06:20 Red Blood Count 3.90 L, Mean Corpuscular Volume 96.4 H, Mean Corpuscular Hemoglobin 30.0, Mean Corpuscular Hemoglobin Concent 31.1 L, Red Cell Distribution Width 13.6, Neutrophils (%) (Auto) 75.0 H, Lymphocytes (%) (Auto) 13.2 L, Monocytes (%) (Auto) 9.6 H, Eosinophils (%) (Auto) 1.7, Basophils (%) (Auto) 0.2, Neutrophils # (Auto) 8.5 H, Lymphocytes # (Auto) 1.5, Monocytes # (Auto) 1.1 H, Eosinophils # (Auto) 0.2, Basophils # (Auto) 0.0, Calcium Level 8.6 L Microbiology Microbiology 06/20/19 Blood Culture - Preliminary, Resulted No growth after 24 hours . All specim... 06/20/19 Blood Culture - Preliminary, Resulted No growth after 24 hours . All specim... SAMNATHA SOTO MD Jun 22, 2019 10:45
[2019-06-22] MEDS: BREO ELLIPTA INH SCH (10:49)
[2019-06-22] MEDS: VANCOMYCIN HCL 1,000 MG, VIAL MATE ADAPTER 1 EACH in D5W 250 ML IV SCH (12:22)
[2019-06-22] MEDS: ACETAMINOPHEN 500 MG TAB PO SCH ×2 (14:54→22:20)
[2019-06-22 14:55] VITALS: BP 103/45
[2019-06-22] MEDS: TORSEMIDE 20 MG TAB PO SCH (14:55)
[2019-06-22] MEDS: WARFARIN SOD 3 MG TAB PO SCH (17:48)
[2019-06-22 22:04] VITALS: BP 125/76
[2019-06-23] MEDS: ACETAMINOPHEN 500 MG TAB PO SCH (04:56)
[2019-06-23] MEDS: VANCOMYCIN HCL 1,000 MG, VIAL MATE ADAPTER 1 EACH in D5W 250 ML IV SCH (04:56)
[2019-06-23 06:10] LABS: BASO % 0.2 % (0.0-1.0); EOS # 0.3 10^3/uL (0.0-0.50); EOS % 2.6 % (0.0-3.0); HEMATOCRIT 38.2 % (36.0-47.0); HEMOGLOBIN 12.2 g/dl (12.0-15.5); LYMPH # 1.6 10^3/uL (1.5-4.5); LYMPH % 16.8 % (24.0-44.0); MEAN CORPUSCULAR HEMOGLOBIN 30.1 pg (27.0-33.0); MEAN CORPUSCULAR HGB CONC 31.9 g/dl (32.0-36.5); MEAN CORPUSCULAR VOLUME 94.3 fl (80.0-96.0); MONO # 1.1 10^3/uL (0.0-0.8); MONO % 11.4 % (0.0-5.0); NEUTROPHILS # 6.6 10^3/uL (1.8-7.7); NEUTROPHILS % 68.7 % (36.0-66.0); PLATELET COUNT, AUTOMATED 248 10^3/uL (150-450); RED BLOOD COUNT 4.05 10^6/uL (4.00-5.40); WHITE BLOOD COUNT 9.6 10^3/uL (4.0-10.0)
[2019-06-23 06:27] LABS: BLOOD UREA NITROGEN 18 MG/DL (7-18); CALCIUM LEVEL 9.1 MG/DL (8.8-10.2); CARBON DIOXIDE LEVEL 32 MEQ/L (21-32); CHLORIDE LEVEL 103 MEQ/L (98-107); CREATININE FOR GFR 0.69 MG/DL (0.55-1.30); GLOMERULAR FILTRATION RATE > 60.0 (>32); GLUCOSE, FASTING 152 MG/DL (70-100); POTASSIUM SERUM 3.8 MEQ/L (3.5-5.1); SODIUM LEVEL 140 MEQ/L (136-145)
[2019-06-23 06:33] LABS: INR 2.71; PROTHROMBIN TIME 28.6 SECONDS (11.8-14.0)
[2019-06-23] MEDS: CitaloPRAM (CeleXA) 20 MG TAB PO SCH (08:16)
[2019-06-23] MEDS: HumaLOG INSULIN (NovoLOG) PER UNIT SC SCH (08:16)
[2019-06-23] MEDS: PRAVASTATIN 20 MG TAB PO SCH (08:16)
[2019-06-23] MEDS: BREO ELLIPTA INH SCH (08:17)
[2019-06-23] MEDS: glipiZIDE (GLUCOTROL) 5 MG TAB PO SCH (08:17)
[2019-06-23] MEDS ORDERED: ACET-683 PO (08:34)
[2019-06-23] MEDS ORDERED: DOXY-350 PO (08:34)
--- NOTE | 2019-06-25 21:57 | DS.PDOC ---
Discharge Summary General Date of Admission Jun 21, 2019 at 08:15 Date of Discharge 06/23/19 Discharge Summary PROCEDURES PERFORMED DURING STAY: [None]. DISCHARGE DIAGNOSES: Left lower Extremity Cellulitis Left Lower Extremity post thrombosis syndrome Chronic venous stasis skin changes. Left Chase's Cyst. Acute left common femoral DVT on 06/15/19 Chronic left popliteal DVT since 04/25/2018 SECONDARY DIAGNOSIS: Kuc-iurhhog-jyhxargrx diabetes, Paroxysmal atrial fibrillation on Coumadin, Acute left common femoral DVT on 06/15/19, Chronic po pliteal DVT since 04/2018, GERD, History of CVA with residual memory deficit / Dyslipidemia, Unsteady Gait (uses cane and walker), Obesity, Status post right breast lumpectomy with axillary lymph node dissection for metastatic infiltrating ductal carcinoma in 2004, superficial thrombophlebitis at the left ankle many years ago left popliteal cyst COMPLICATIONS/CHIEF COMPLAINT: Cellulitis Of Left Leg. HISTORY OF PRESENT ILLNESS: See history and physical HOSPITAL COURSE: 89 year old female with PMH of Dcq-quwucfb-tbqycdyeg diabetes, Paroxysmal atrial fibrillation on Coumadin, Recently diagnosed Acute on chronic left lower extremity DVT on 06/15/19, GERD, History of CVA with residual memory deficit / Dyslipidemia, Unsteady Gait (uses cane and walker), Obesity, Status post right breast lumpectomy with axillary lymph node dissection for metastatic infiltrating ductal carcinoma in 2004, super ficial thrombophlebitis at the left ankle many years ago left popliteal cyst who presented with complaints of worsening left lower extremity redness, pain and swelling. She was initially diagnosed with cellulitis on June 11 and started on Keflex. On June 15 she returned to the hospital with worsening redness and swelling and was diagnosed with a DVT. After being discharged on Jun 17,the patient continued to experience lower extremity pain, redness and swelling; she had difficulties walking, so she came back to the hospital. She was admitted for left lower extremity cellulitis, difficulty in ambulation. Post thrombosis syndrome I think the most of pain , swelling, warmth and redness is most probably de to chronic left popliteal dvt with partial occlusion and now new left common femoral DVT. leg elevation, compression stockings or gege wrap. LLE Cellulitis Predisposing factors include recently diagnosed left lower extremity DVT & obesity Received IV antibiotics in hospital will dc with cefdinir blood cultures negative. Unsteady Gait Uses cane and walker at home Was recently hospitalized Is less mobile that at her baseline because of LLE cellulitis PT and OT eval done and followed recommendation. Gyt-gobdxvn-urjqllbqj diabetes A1C 9.0 in March continue home meds. 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 ALLERGIES: Please see below. PHYSICAL EXAMINATION ON DISCHARGE: VITAL SIGNS: Please see below. General Exam: Positive: Alert, Cooperative, No Acute Distress Eye Exam: Positive: PERRLA, Conjunctiva & lids normal, EOMI; Negative: Sclera icteric Neck Exam: Positive: Supple; Negative: JVD, thyromegaly Chest Exam: Positive: Clear to auscultation, Normal air movement Heart Exam: Positive: Rate Normal, Regular Rhythm, Normal S1, Normal S2, Murmurs (soft systolic murmur best at the base of the heart. ); Negative: Rubs Abdomen Exam: Positive: Normal bowel sounds, Soft; Negative: Tenderness, Hepatosplenomegaly Extremity Exam: Positive: Tenderness (left leg), Swelling (left leg); Negative: Clubbing, Cyanosis, Edema Skin Exam: Positive: Other skin issue (stasis changes in the left lower leg. ) LABORATORY DATA: Please see below. ACTIVITY: [As tolerated]. DIET: Carb consistent DISPOSITION: Home Health Service. DISCHARGE INSTRUCTIONS: Follow up with PMD in 1 week DISCHARGE CONDITION: [Stable]. TIME SPENT ON DISCHARGE: 35 minutes. Vital Signs/I&Os Vital Signs Date Time Temp Pulse Resp B/P (MAP) Pulse Ox O2 Delivery O2 Flow Rate FiO2 06/22/19 22:04 98.4 61 18 125/76 (92) 96 06/20/19 21:24 Room Air Microbiology Microbiology 06/20/19 Blood Culture - Final, Complete NO GROWTH AFTER 5 DAYS 06/20/19 Blood Culture - Final, Complete NO GROWTH AFTER 5 DAYS Discharge Medications Scheduled Calcium Carbonate/Vitamin D3 (Calcium 600-Vit D3 800 Tablet) 1 Tab Tab, 1 TAB PO DAILY, (Reported) Cholecalciferol (Vitamin D3) (Vitamin D3) 5,000 Unit Tab, 5,000 UNIT PO QPM, (Reported) TAKES AT 1500 Citalopram Hydrobromide (Celexa) 20 Mg Tablet, 20 MG PO DAILY, (Reported) Doxycycline Monohydrate (Doxycycline) 100 Mg Capsule, 100 MG PO BID take after food Fluticasone/Vilanterol (Breo Ellipta 100-25 Mcg INH) 1 Each Blst.w.dev, 1 PUFF INH DAILY, (Reported) Glipizide (Glipizide) 5 Mg Tablet, 5 MG PO DAILY, (Reported) Metformin HCl (Metformin HCl) 500 Mg Tab, 500 MG PO BID, (Reported) AT 0600 AND 1800. Potassium Chloride (Klor-Con M20) 20 Meq Tabcr, 20 MEQ PO DAILY, (Reported) Pravastatin Sodium (Pravachol) 80 Mg Tab, 80 MG PO DAILY, (Reported) Torsemide (Torsemide) 20 Mg Tab, 20 MG PO DAILY, (Reported) TAKES AT 1500 Vitamin B Complex (Vitamin B Complex) 1 Each Tablet, 1 TAB PO DAILY, (Reported) Warfarin Sodium (Warfarin Sodium) 5 Mg Tablet, 5 MG PO QPM, (Reported) AT 1800 Zinc (Zinc) 50 Mg Tablet, 50 MG PO DAILY, (Reported) Scheduled PRN Acetaminophen (Acetaminophen) 500 Mg Tab, 1-2 TAB PO Q8HP PRN for PAIN Albuterol Sulfate (Proair Hfa) 108 Mcg/Act Aer, 2 PUFF INH Q4H PRN for SHORTNESS OF BREATH, (Reported) Allergies Coded Allergies: No Known Allergies (Unverified , 06/15/19) SAMANTHA SOTO MD Jun 25, 2019 21:56
== END 2019-06-23 11:25 | disposition home health service (06) | DRG 300 ==
LOC: M ED 13:02 → M MS5PR 13:03 → M ED INP 20:28 → UNDOADMOB 20:28 → M MS5PR 22:10 → M ED INP 22:10 → OBSVTOIN 06-21 08:15
PROVIDERS: ADMIT Internal Medicine; ATTEND Internal Medicine Nephrology
DX: I87.022 Postthrombotic syndrome with inflammation of left lower extremity (principal); L03.116 Cellulitis of left lower limb; I82.532 Chronic embolism and thrombosis of left popliteal vein; E11.9 Type 2 diabetes mellitus without complications; I48.0 Paroxysmal atrial fibrillation; K21.9 Gastro-esophageal reflux disease without esophagitis; D72.829 Elevated white blood cell count, unspecified; I69.311 Memory deficit following cerebral infarction; E66.9 Obesity, unspecified; M71.22 Synovial cyst of popliteal space [Baker], left knee; E78.5 Hyperlipidemia, unspecified; R26.81 Unsteadiness on feet; Z90.49 Acquired absence of other specified parts of digestive tract; Z90.710 Acquired absence of both cervix and uterus; Z68.37 Body mass index [BMI] 37.0-37.9, adult; Z79.01 Long term (current) use of anticoagulants; Z79.84 Long term (current) use of oral hypoglycemic drugs; Z79.899 Other long term (current) drug therapy; Z85.3 Personal history of malignant neoplasm of breast

== ENCOUNTER 2019-06-28 10:52 | Inpatient (IN) | payer MEDICARE ==
[~2019-06-28] VITALS: Ht 149.9 cm; Wt 85.5 kg
[~2019-06-28 10:52] MED LIST changes: +CELE20TA PO; +DOXY-350 PO
[2019-06-28] MEDS ORDERED: ACETAMINOPHEN TAB 650MG DOSE (2X325MG) PO ONE (11:45)
[2019-06-28 12:29] LABS: BASO % 0.2 % (0.0-1.0); EOS # 0.2 10^3/uL (0.0-0.50); EOS % 1.8 % (0.0-3.0); HEMATOCRIT 36.9 % (36.0-47.0); HEMOGLOBIN 11.7 g/dl (12.0-15.5); LYMPH # 1.3 10^3/uL (1.5-4.5); LYMPH % 9.7 % (24.0-44.0); MEAN CORPUSCULAR HEMOGLOBIN 29.5 pg (27.0-33.0); MEAN CORPUSCULAR HGB CONC 31.7 g/dl (32.0-36.5); MEAN CORPUSCULAR VOLUME 93.2 fl (80.0-96.0); MONO # 1.5 10^3/uL (0.0-0.8); MONO % 11.3 % (0.0-5.0); NEUTROPHILS # 10.2 10^3/uL (1.8-7.7); NEUTROPHILS % 76.6 % (36.0-66.0); PLATELET COUNT, AUTOMATED 318 10^3/uL (150-450); RED BLOOD COUNT 3.96 10^6/uL (4.00-5.40); WHITE BLOOD COUNT 13.3 10^3/uL (4.0-10.0)
[2019-06-28 12:41] LABS: INR 2.48; PARTIAL THROMBOPLASTIN TIME 44.2 SECONDS (25.0-38.4); PROTHROMBIN TIME 26.7 SECONDS (11.8-14.0)
[2019-06-28 13:01] LABS: ERYTHROCYTE SEDIMENTATION RATE 70 mm/hr (0-30)
[2019-06-28 13:06] LABS: ALBUMIN 2.5 GM/DL (3.2-5.2); ALT/SGPT 26 U/L (12-78); BILIRUBIN,TOTAL 0.6 MG/DL (0.2-1.0); BLOOD UREA NITROGEN 21 MG/DL (7-18); CALCIUM LEVEL 8.5 MG/DL (8.8-10.2); CARBON DIOXIDE LEVEL 28 MEQ/L (21-32); CHLORIDE LEVEL 101 MEQ/L (98-107); CREATININE FOR GFR 0.79 MG/DL (0.55-1.30); GLOMERULAR FILTRATION RATE > 60.0 (>32); GLUCOSE, FASTING 147 MG/DL (70-100); POTASSIUM SERUM 3.8 MEQ/L (3.5-5.1); SODIUM LEVEL 138 MEQ/L (136-145); TOTAL PROTEIN 6.6 GM/DL (6.4-8.2)
[2019-06-28] MEDS ORDERED: NORCO, ANEXSIA 5/325MG TABLET (HYDROcodone/ACETAMINOPHEN) PO ONE (13:30)
[2019-06-28] MEDS ORDERED: VANCOMYCIN HCL 1,000 MG, VIAL MATE ADAPTER 1 EACH in D5W 250 ML IV ONE (13:30)
[2019-06-28] MEDS ORDERED: cefTRIAXone SOD 1 GM in D5W MINI-BAG PLUS 50 ML IV ONE (13:30)
[2019-06-28] MEDS ORDERED: MOM 30ML SUSPENSION UDC PO PRN (13:45)
[2019-06-28] MEDS ORDERED: WARF-18 PO (13:54)
[2019-06-28] MEDS ORDERED: ACET-897 PO (13:54)
[2019-06-28 16:00] VITALS: BP 127/78
[2019-06-28] MEDS ORDERED: ALBUTEROL 90 MCG/ACT 8GM HFA INHALER INH PRN (16:00)
[2019-06-28] MEDS ORDERED: GLUCOSE 4 GM CHEW TABLET PO PRN (16:15)
[2019-06-28] MEDS ORDERED: GLUCAGON FOR INJ 1 MG VIAL (J1610) SC PRN (16:15)
[2019-06-28] MEDS ORDERED: DEXTROSE 50% 50 ML SYRINGE IV PRN (16:15)
[2019-06-28] MEDS: CitaloPRAM (CeleXA) 20 MG TAB PO SCH (16:39)
[2019-06-28] MEDS: TORSEMIDE 20 MG TAB PO SCH (16:39)
[2019-06-28] MEDS: WARFARIN SOD 5 MG TAB PO SCH (16:40)
[2019-06-28] MEDS: ACETAMINOPHEN 500 MG TAB PO PRN (16:40)
[2019-06-28] MEDS: CEFTAROLINE FOSAMIL 400 MG in D5W 50 ML IV SCH (17:49)
[2019-06-28] MEDS: metFORMIN (GLUCOPHAGE) 500 MG TAB PO SCH (17:49)
[2019-06-28] MEDS: HumaLOG INSULIN (NovoLOG) PER UNIT SC SCH ×2 (17:50→21:00)
[2019-06-28] MEDS: NORCO, ANEXSIA 5/325MG TABLET (HYDROcodone/ACETAMINOPHEN) PO PRN (21:54)
[2019-06-29 06:00] VITALS: BP 124/76
[2019-06-29] MEDS: NORCO, ANEXSIA 5/325MG TABLET (HYDROcodone/ACETAMINOPHEN) PO PRN ×2 (06:06→17:19)
[2019-06-29] MEDS: CEFTAROLINE FOSAMIL 400 MG in D5W 50 ML IV SCH (06:08)
[2019-06-29 06:21] LABS: HEMATOCRIT 39.1 % (36.0-47.0); HEMOGLOBIN 12.7 g/dl (12.0-15.5); MEAN CORPUSCULAR HEMOGLOBIN 30.2 pg (27.0-33.0); MEAN CORPUSCULAR HGB CONC 32.5 g/dl (32.0-36.5); MEAN CORPUSCULAR VOLUME 92.9 fl (80.0-96.0); PLATELET COUNT, AUTOMATED 270 10^3/uL (150-450); RED BLOOD COUNT 4.21 10^6/uL (4.00-5.40); WHITE BLOOD COUNT 16.7 10^3/uL (4.0-10.0)
[2019-06-29 06:45] LABS: INR 2.47; PROTHROMBIN TIME 26.6 SECONDS (11.8-14.0)
[2019-06-29] MEDS: HumaLOG INSULIN (NovoLOG) PER UNIT SC SCH ×5 (07:30→21:00)
[2019-06-29 08:18] LABS: ALBUMIN 2.4 GM/DL (3.2-5.2); BILIRUBIN,TOTAL 0.4 MG/DL (0.2-1.0); CALCIUM LEVEL 8.4 MG/DL (8.8-10.2); CREATININE FOR GFR 0.95 MG/DL (0.55-1.30); FREE THYROXINE INDEX 2.9 % (1.3-4.8); GLOMERULAR FILTRATION RATE 59.2 (>32); POTASSIUM SERUM 3.8 MEQ/L (3.5-5.1); THYROID STIMULATING HORMONE 1.84 uIU/ML (0.358-3.740); THYROXINE (T4) 8.2 UG/DL (4.5-12.0); TOTAL PROTEIN 7.1 GM/DL (6.4-8.2)
[2019-06-29] MEDS: CitaloPRAM (CeleXA) 20 MG TAB PO SCH (09:23)
[2019-06-29] MEDS: metFORMIN (GLUCOPHAGE) 500 MG TAB PO SCH ×2 (09:23→17:17)
[2019-06-29] MEDS: PRAVASTATIN 20 MG TAB PO SCH (09:24)
[2019-06-29] MEDS: ACETAMINOPHEN 500 MG TAB PO PRN (09:32)
[2019-06-29] MEDS: glipiZIDE *2.5MG* 1/2 TABLET PO SCH (10:57)
--- NOTE | 2019-06-29 13:13 | HPE ---
DATE OF ADMISSION: CHIEF COMPLAINT: Left leg pain, swelling and redness. HISTORY OF PRESENTING ILLNESS: This is an 89-year-old female who was recently admitted for left lower extremity acute on chronic deep venous thrombosis (DVT) and cellulitis, completed a full course of antibiotics and was in her usual state of health until last evening when she went to bed at 10 p.m. and woke up in pain, could hardly move and could not get out of bed. The patient was trying to get to the restroom at the time and felt that her pain was so severe that she called [facility] (EMS). She had taken Tylenol that her had given her. She otherwise, denies any shortness of breath, chest pain, pressure or tightness, lightheadedness or dizziness. She denies having any fevers or chills at home. She denies any trauma to the left lower extremity. This was worse when she ambulated usually with her walker at home, and no other alleviating factors. The patient has had multiple visits for the same issue in early June, 06/15/2019-06/17/2019 and 06/21/2019-06/23/2019. Repeat imaging studies at that time showed some band of fibrous tissues within the common femoral vein with a thin echogenic area in the posterior, which is nonocclusive and results of chronic thrombus appeared to be unchanged from prior exam on 04/25/2018. The venous return through the deep veins of the left leg appeared to be noted. A popliteal cyst was seen approximately 5 cm x 2 cm in thickness have also been seen in previous examinations. Ultrasound of the lower extremity today is still pending official report. The patient had a month ago fallen in the bathroom. The step was too high. Since then, patient has not had any recurrent falls. PAST MEDICAL HISTORY: 1. Thrombophlebitis in the 1950s. 2. Chronic lymphedema. 3. Chronic DVT of the left lower extremity. 4. Pneumonia. 5. Type 2 diabetes. 6. Paroxysmal atrial fibrillation on chronic Coumadin. 7. Prior history of breast cancer with axillary lymph node dissection, 2004, underwent chemotherapy. 8. Cerebrovascular accident. (CVA) with residual memory deficits. 9. Reflux disease. 10. Dyslipidemia. PAST SURGICAL HISTORY: 1. Hysterectomy. 2. Appendectomy. 3. Laparoscopic cholecystectomy in 1995. 4. Colonoscopy 2015. 5. Incisional hernia repair 2006. 6. Right breast lumpectomy, axillary lymph node dissection 2004, treated with chemotherapy for breast cancer. ALLERGIES: NO KNOWN DRUG ALLERGIES. HOME MEDICATIONS: - acetaminophen 1 gram by mouth three times a day as needed - ProAir HFA 2 puffs every 4 as needed - Celexa 20 mg daily - glipizide 2.5 mg daily - metformin 500 mg twice a day - pravastatin 80 mg daily - torsemide 20 mg daily - warfarin 2.5 mg twice a week, 5 mg five times a week - calcium 600 mg, vitamin D 800 mg daily - vitamin B3 5000 units every evening - Breo Ellipta 1 puff inhaled daily - potassium chloride 20 mEq daily - vitamin B 1 tablet daily - zinc 50 mg daily FAMILY HISTORY: Patient's father in his 70s of emphysema complications. He used to work in a factory and was a smoker. Her mother in her 80s with dementia and CVA. SOCIAL HISTORY: The patient lives with her at home, has six living children. One child . She is . Previously lived in [place] in the winter and returns to [facility] in the spring and summer, but this year in 2019 patient and the have elected to live in the [facility] permanently with their six children helping. She had previously smoked cigarettes one pack per week from age 18 to age 42. She does not drink any alcohol. No recreational drug use. Her health care proxy is Elida, phone number [phone], cell phone is [phone]. 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 She has seven children, one child passed. She lives in a two-linda home but currently is able to live on the first floor. There are four steps into the house. She usually walks with one walker. Her children drop in every day or most days of the week. Usually when they go on their lunch break, they check up on her. Sometimes they go out to eat she and her . REVIEW OF SYSTEMS: 12-point system negative aside from positive findings in history of presenting illness. PHYSICAL EXAMINATION: Temperature 97.2, pulse 100, respiratory rate 18, blood pressure 119/63, 94% on room air. Generally, patient is awake, alert, oriented to herself. She is in no respiratory distress. She is not using accessory respiratory muscles. No jugular venous distention. No cyanosis. No icterus. No jaundice. Pupils are round and reactive. Extraocular muscles are intact. Face is symmetric. Speech is fluent. No facial asymmetry. Tongue is midline. Neck is supple. No cervical lymphadenopathy or thyromegaly. Lungs are clear to auscultation. There is no wheezing, rales or rhonchi. Air entry is equal bilaterally. Heart: S1, S2. Sinus tachycardia. Abdomen is soft, nontender, nondistended. Positive bowel sounds times four quadrants. No rebound, guarding or hepatosplenomegaly. Extremities: Patient has erythema on the dorsal aspect of the left lower extremity. There is marked edema left greater than the right, 2+ on the left, 1+ on the right. She has some tenderness on examination dorsalis pedis, posterior tibialis have been noted. LABORATORY DATA: White count 13.3, hemoglobin 11.7, hematocrit 36.9, platelet count 318. Sed rate of 70, 10.2, 76.6% neutrophils, 9.7% lymphocytes. Sodium 138, potassium 3.8, chloride 101, bicarbonate 28, BUN 21, creatinine 0.79, glucose of 147, calcium 8.5, total bilirubin 0.6, AST 21, ALT 26, alkaline phosphatase 100, C-reactive protein of 7.5, total protein 6.6, albumin 2.5. INR is 2.48. Two sets of blood culture are pending. MRSA is pending. Vascular ultrasound of the left lower extremity is pending official report. ASSESSMENT AND PLAN: This is an 89-year-old female, past medical history of diabetes, paroxysmal atrial fibrillation on warfarin, breast cancer, cerebrovascular accident with residual memory deficit, reflux, dyslipidemia, chronic deep venous thrombosis in the left lower extremity, cellulitis, and pneumonia presents after being discharged for cellulitis and DVT with popliteal cyst with acute onset of pain, swelling and edema. IMPRESSION: 1. Left lower extremity edema. The patient has chronic thrombus and history of Chase's cyst. Still awaiting ultrasound of the lower extremity. She did have a white count without fever, chills, but complains of significant pain, tenderness, swelling, and edema. She has received intravenous vancomycin and ceftriaxone in the emergency room (ER) and will be continued on intravenous ceftaroline for now. MRSA screen has been obtained. Procalcitonin level is still pending. Sed rate and CRP are elevated and it is reasonable to continue with antibiotics for left lower extremity cellulitis for now. If procalcitonin is negative, will discontinue antibiotics. 2. Chronic left lower extremity DVT with two other prior admission for the same complaint. Will consult vascular surgery to evaluate for thrombectomy. This is not emergent. The patient's anterior pulses are well noted, and lower extremity is pink, dry with adequate pulses with no concerns for compartment syndrome. At this time, we will take a better look with CT of the left lower extremity. Will defer to vascular surgery for venogram. 3. Left lower extremity cellulitis. The patient has had recurrent episodes from previous admissions. This is the third admission for similar complaints. There is no obvious thrombophlebitis on examination. She has been given vancomycin and ceftriaxone times one dose in the emergency room. She will be continued on ceftaroline until prolactin level is negative. There is no fever or chills but with elevated white count, sed rate, as well as CRP. Bacid to decrease risk of C diff. 4. History of paroxysmal atrial fibrillation. On chronic anticoagulation. The patient is resumed on her home dose of warfarin. The patient does have some tachycardia. Treatment would be the same should she have pulmonary embolism. 5. Pulmonary nodules. Repeat CT that was performed in November of this year is concerning for two pulmonary nodules that have increased in size. In light of prior history of breast cancer concerning for metastatic disease, at this time I have discussed at length with the family that at her age of 89 and no acute issues from potential recurrence metastatic disease biopsy is not emergent unless the patient requests. At this time, should the patient become symptomatic with shortness of breath and persistent tachycardia, we will continue with anticoagulation for DVT and potentially evaluate for a pulmonary embolism. 6. Thyroid nodules. At the patient's age, will check thyroid function tests. Since the patient has not received intravenous contrast yet, may consider doing a radioactive iodine essay should the patient want further investigation into the thyroid nodule. 7. Type 2 diabetes. Will continue on consistent carbohydrate diet, insulin sliding scale. If we plan on doing any contrast study, will discontinue the patient's metformin. 8. History of breast cancer with lymph node dissection, chemotherapy in the past. The patient has pulmonary nodules concerning for metastatic disease. She has had chemotherapy in the past. Family to decide if they would like to have these pulmonary nodules evaluated with either a CT-guided biopsy or with bronchoscopy depending on the location of the enlarging lesions. 9. Reflux disease. Continue on proton pump inhibitor (PPI). 10. Dyslipidemia. Continue on home medications. 11. History of CVA secondary to paroxysmal atrial fibrillation with residual memory deficit complicating her care. She is continued on anticoagulation. Health care proxy is available for medical decision-making at this time. 12. Code status. The family will discuss with the patient that should she have a terminal illness that is untreatable and patient will decide if she wants full code versus DO NOT RESUSCITATE. 13. Obesity. Body mass index (BMI) of 36.4 complicating her care. KAMILLA
[2019-06-29 14:00] VITALS: BP 118/69
[2019-06-29] MEDS: WARFARIN SOD 2.5 MG TAB PO SCH (16:00)
[2019-06-29] MEDS: TORSEMIDE 20 MG TAB PO SCH (16:00)
[2019-06-29 16:57] LABS: LYMPHOCYTES 8 % (16-44); MONOCYTES 3 % (0-5); NEUTROPHILS 89 % (28-66); PLATELET ESTIMATE NORMAL (NORMAL)
--- NOTE | 2019-06-29 18:23 | IPNPDOC ---
Date Seen The patient was seen on 06/29/19. Progress Note SUBJECTIVE: Pt c/o left leg pain 7/10 worse with she moves and bears weight on it, but better with pain meds. no fever or chills overnight. no c/o sob, palpitations, lightheadedness, or dizziness. PHYSICAL EXAMINATION: VITALS: PLS SEE BELOW Generally, patient is awake, alert, oriented to herself. She is in no respiratory distress. She is not using accessory respiratory muscles. No jugular venous distention. No cyanosis. No icterus. No jaundice. Pupils are round and reactive. Extraocular muscles are intact. Face is symmetric. Speech is fluent. No facial asymmetry. Tongue is midline. Neck is supple. No cervical lymphadenopathy or thyromegaly. Lungs are clear to auscultation. There is no wheezing, rales or rhonchi. Air entry is equal bilaterally. Heart: S1, S2. Sinus tachycardia. Abdomen is soft, nontender, nondistended. Positive bowel sounds times four quadrants. No rebound, guarding or hepatosplenomegaly. Extremities: Patient has erythema on the dorsal aspect of the left lower extremity. There is marked edema left greater than the right, 2+ on the left, 1+ on the right. She has some tenderness on examination dorsalis pedis, posterior tibialis have been noted. LABORATORY DATA, IMAGING STUDIES, MICROBIOLOGY: PLS SEE BELOW ASSESSMENT AND PLAN: This is an 89-year-old female, past medical history of diabetes, paroxysmal atrial fibrillation on warfarin, breast cancer, cerebrovascular accident with residual memory deficit, reflux, dyslipidemia, chronic deep venous thrombosis in the left lower extremity, cellulitis, and pneumonia presents after being discharged for cellulitis and DVT with popliteal cyst with acute onset of pain, swelling and edema. IMPRESSION: 1. Left lower extremity edema. The patient has chronic thrombus and history of Chase's cyst. Still awaiting ultrasound of the lower extremity. She did have a white count without fever, chills, but complains of significant pain, tenderness, swelling, and edema. She has received intravenous vancomycin and ceftriaxone in the emergency room (ER) and will be continued on intravenous ceftaroline for now. MRSA screen has been obtained. Procalcitonin level is still pending. Sed rate and CRP are elevated and it is reasonable to continue with antibiotics for left lower extremity cellulitis for now. If procalcitonin is negative, will discontinue antibiotics. 2. Chronic left lower extremity DVT with two other prior admission for the same complaint. Will consult vascular surgery to evaluate for thrombectomy. This is not emergent. The patient's anterior pulses are well noted, and lower extremity is pink, dry with adequate pulses with no concerns for compartment syndrome. At this time, we will take a better look with CT of the left lower extremity. Will defer to vascular surgery for venogram. 3. Left lower extremity cellulitis. The patient has had recurrent episodes from previous admissions. This is the third admission for similar complaints. There is no obvious thrombophlebitis on examination. She has been given vancomycin and ceftriaxone times one dose in the emergency room. She will be continued on ceftaroline until prolactin level is negative. There is no fever or chills but with elevated white count, sed rate, as well as CRP. Bacid to decrease risk of C diff. 4. History of paroxysmal atrial fibrillation. On chronic anticoagulation. The patient is resumed on her home dose of warfarin. The patient does have some tachycardia. Treatment would be the same should she have pulmonary embolism. 5. Pulmonary nodules. Repeat CT that was performed in November of this year is concerning for two pulmonary nodules that have increased in size. In light of prior history of breast cancer concerning for metastatic disease, at this time I have discussed at length with the family that at her age of 89 and no acute issues from potential recurrence metastatic disease biopsy is not emergent unless the patient requests. At this time, should the patient become symptomatic with shortness of breath and persistent tachycardia, we will continue with anticoagulation for DVT and potentially evaluate for a pulmonary embolism. 6. Thyroid nodules. At the patient's age, will check thyroid function tests. Since the patient has not received intravenous contrast yet, may consider doing a radioactive iodine essay should the patient want further investigation into the thyroid nodule. 7. Type 2 diabetes. Will continue on consistent carbohydrate diet, insulin sliding scale. If we plan on doing any contrast study, will discontinue the patient's metformin. 8. History of breast cancer with lymph node dissection, chemotherapy in the past. The patient has pulmonary nodules concerning for metastatic disease. She has had chemotherapy in the past. Family per patient wishes have declined further evaluation despite risk of untreated recurrent malignancy. 9. Reflux disease. Continue on proton pump inhibitor (PPI). 10. Dyslipidemia. Continue on home medications. 11. History of CVA secondary to paroxysmal atrial fibrillation with residual memory deficit complicating her care. She is continued on anticoagulation. Health care proxy is available for medical decision-making at this time. 12. Code status. DO NOT RESUSCITATE. 13. Obesity. Body mass index (BMI) of 36.4 complicating her care. VS, I&O, 24H, Fishbone Vital Signs/I&O Vital Signs Date Time Temp Pulse Resp B/P (MAP) Pulse Ox O2 Delivery O2 Flow Rate FiO2 06/29/19 17:49 18 06/29/19 14:00 98.6 91 118/69 (85) 95 06/28/19 13:57 Room Air I&O- Last 24 Hours up to 6 AM 06/29/19 06:00 Intake Total 560 ml Output Total 1675 ml Balance -1115 ml Laboratory Data 24H LABS Laboratory Tests 2 06/28/19 20:30: Bedside Glucose (Misc Panel) 108 06/29/19 06:15: Nucleated Red Blood Cells % (auto) 0.0, Neutrophils 89H, Lymphocytes (Manual) 8L, Monocytes (Manual) 3, Platelet Estimate NORMAL, Prothrombin Time 26.6H, Prothromb Time International Ratio 2.47 06/29/19 07:38: Anion Gap 8, Glomerular Filtration Rate 59.2, Blood Urea Nitrogen 23H, Creat inine 0.95, Sodium Level 136, Potassium Level 3.8, Chloride Level 100, Carbon Dioxide Level 28, Calcium Level 8.4L, Aspartate Amino Transf (AST/SGOT) 31, Alanine Aminotransferase (ALT/SGPT) 32, Alkaline Phosphatase 102, Total Bilirubin 0.4, Total Protein 7.1, Albumin 2.4L, Albumin/Globulin Ratio 0.51L, Thyroid Stimulating Hormone (TSH) 1.840, Free Thyroxine Index 2.9, Thyroxine (T4) 8.2, Triiodothyronine (T3) Uptake 35 06/29/19 11:35: Bedside Glucose (Misc Panel) 175H 06/29/19 16:19: Bedside Glucose (Misc Panel) 76L CBC/BMP Laboratory Tests 06/29/19 06:15 Red Blood Count 4.21, Mean Corpuscular Volume 92.9, Mean Corpuscular Hemoglobin 30.2, Mean Corpuscular Hemoglobin Concent 32.5, Red Cell Distribution Width 13.4 06/29/19 07:38 Calcium Level 8.4 L, Aspartate Amino Transf (AST/SGOT) 31, Alanine Aminotrans ferase (ALT/SGPT) 32, Alkaline Phosphatase 102, Total Bilirubin 0.4, Total Protein 7.1, Albumin 2.4 L Microbiology Microbiology 06/28/19 Blood Culture - Preliminary, Resulted No growth after 24 hours . All specim... 06/28/19 Blood Culture - Preliminary, Resulted No growth after 24 hours . All specim... 06/28/19 MRSA Screen - Final, Complete NATI RAWLS MD Jun 29, 2019 18:23
--- NOTE | 2019-06-29 19:07 | CR ---
DATE OF CONSULTATION: 06/29/2019 REASON FOR CONSULTATION: Left lower leg pain, swelling and redness, possible cellulitis. HISTORY OF PRESENT ILLNESS: This is an 89-year-old female with a pertinent past medical history of lower extremity acute on chronic deep vein thrombosis (DVT) and cellulitis of the left leg who presented to the emergency room (ER) on 06/28/2019 for worsening left lower leg pain and swelling. The patient was accompanied by her daughter and who provided a majority of the history. Early 06/05/2019, her daughter noticed two erythematous rash spots on her leg. There was tenderness with palpitation. A couple of days later, the erythema began to progress and they were evaluated at urgent care. At first, she was told it was not cellulitis and was to apply warm compress 20 minutes on and 20 minutes off. This conservative therapy did not help and she was evaluated again by urgent care and they prescribed her seven days of Keflex. They noticed that the erythema and the tenderness began to progress more, to the surrounding lateral and medial side of the patel. They then went to the ER on 06/21/2019 where imaging showed that she had fibrous tissue on her common femoral vein and thin echogenic area of the posterior which is nonocclusive and was diagnosed with a chronic thrombi. She was also discharged on doxycycline, five-day course, which she completed the day of admission. She states the day prior to presentation in the evening time she woke up in pain. She was unable to ambulate and states that the pain was very severe, especially to light touch. She requested her to bring her to the ER for further evaluation. She only takes Tylenol for pain which provides no relief. She denies any shortness of breath, chest pain, pressure, lightheadedness, or dizziness. She denies having any fevers, chills, or any trauma to the lower extremity. She does ambulate with a walker. She admits that she has a baseline tenderness to the lower extremity after a thrombophlebitis diagnosed in the 1950s. She states that this pain is way more severe. PAST MEDICAL HISTORY: 1. Thrombophlebitis in 1950. 2. Chronic lymphedema. 3. Chronic deep vein thrombosis (DVT) of the left lower extremity. 4. Pneumonia. 5. Type 2 diabetes. 6. Proximal atrial fibrillation on chronic Coumadin. 7. Prior history of breast cancer with axillary lymph node dissection in 2004, underwent chemotherapy. 8. 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 9. Reflux disease. 10. Dyslipidemia. PAST SURGICAL HISTORY: 1. Hysterectomy. 2. Appendectomy. 3. Laparoscopic cholecystectomy in 1968. 4. Incisional hernia repair in 2006. 5. Right breast lumpectomy with axillary lymph node dissection in 2004, treated with chemotherapy for breast cancer. ALLERGIES: No known drug allergies. HOME MEDICATIONS: - acetaminophen 1 gram by mouth three times a day as needed - ProAir HFA two puffs every four hours as needed - Celexa 20 mg daily - glipizide 2.5 mg daily - metformin 500 mg twice daily - pravastatin 80 mg daily - torsemide 20 mg daily - warfarin 2.5 mg twice a day, 5 mg five times a week - calcium 600 mg and vitamin D 800 mg daily - vitamin D3 5000 units every evening - Breo Ellipta one puff inhaled daily - potassium chloride 20 mEq daily - vitamin B one tablet daily - zinc 50 mg daily FAMILY HISTORY: Father in his 70s due to complications of emphysema. He used to work in a factory and was a past smoker. Mother in her 80s secondary to dementia and cerebrovascular accident (CVA). SOCIAL HISTORY: The patient lives with her and has six living children. One child has . She is currently . She previously lived in [place] and recently just came to [facility] for the Spring and Summer. She is a former smoker of one-pack per week from the age of 18 to 42. She denies any illicit drug use or current alcohol use. She is currently retired. REVIEW OF SYSTEMS: Unless stated above in the history of present illness (HPI), the remaining 12-point review of systems is negative. PHYSICAL EXAMINATION: VITAL SIGNS: Temperature 98.6, pulse 91, respiratory rate 18, blood pressure 118/69, pulse oximetry 95% on room air. GENERAL: This is a very pleasant 89-year-old female laying comfortably on the bed, does not appear to be in any acute distress, answering questions in complete sentences. HEENT: Normocephalic, atraumatic. Pupils equal, round, and reactive. Moist mucous membranes. No jugular venous distention (JVD) noted. CARDIOVASCULAR: S1, S2 sounds are present, regular rate and rhythm. No audible murmurs, rubs, or gallops. RESPIRATORY: Clear to auscultation bilaterally. No audible wheezing, rhonchi, or rales. ABDOMEN: Soft, nontender. Positive bowel sounds in all four quadrants. EXTREMITIES: No lower extremity cyanosis or clubbing. There is an erythematous maculopapular rash on the left patel worse than the right patel. Possible subcutaneous nodules can be appreciated on the patel as well. Significant tactile allodynia noted bilaterally, left worse than right. There is pitting edema on the left, 2+ versus 1+ on the right. No rashes appreciated on the plantar surface of the legs bilaterally. NEUROLOGIC: Spontaneously moves all four extremities. No gross focal deficits appreciated. Physiologically appropriate. LABORATORY DATA: WBC 16.7, hemoglobin 12.7, hematocrit 39.1, platelets 270. Chemistry: Sodium 136, potassium 3.8, chloride 100, carbon dioxide 28, anion gap 8, BUN 23, creatinine 0.95, GFR 59.2, fasting glucose 220, calcium 8.4, total bilirubin 0.4, AST 31, ALT 32, alkaline phosphatase 102, CRP repeat pending, yesterday it was 10.5, total protein is 7.1, albumin 2.4, procalcitonin pending, TSH 1.84, free T4 2.9, coagulation 2.47. Microbiology: Blood cultures times two are no growth for 24 hours. MRSA screen negative. IMAGING: Vascular ultrasound report is officially still pending. ASSESSMENT AND PLAN: This is an 89-year-old female with a pertinent history of a left lower extremity acute on chronic deep vein thrombosis (DVT) of the popliteal vein who presented to the emergency room (ER) for worsening left lower extremity erythema, pain and swelling. Dermatitis, unlikely cellulitis. The patient has completed an adequate amount of antibiotics including Keflex, doxycycline, and multiple doses of Rocephin and vancomycin. We do not believe this is cellulitis. Based on the clinical presentation, we are suspicious of underlying vasculitis versus underlying dermatological disorder. We do recommend to followup with dermatology. Dr. Hi was called to discuss the case. He states that he will see the patient outpatient and prior to discharge just to call his clinic and to over book him and he will see her this week. He recommends getting an HIV, chest x-ray, QuantiFERON gold, serum protein electrophoresis, a urine protein electrophoresis, and a topical steroid such as triamcinolone 0.1% ointment to be applied to the shins bilaterally twice a day as well as an anti-saccharomyces cerevisiae. Once she is clinically stable, the patient can be discharged. She does not need to stay for results. Dermatology will followup with her outpatient.
[2019-06-29 19:12] LABS: TOTAL PROTEIN 6.6 GM/DL (6.4-8.2)
[2019-06-29 20:01] LABS: HIV 1&2 SCREEN CENTAUR NEGATIVE (NEGATIVE)
[2019-06-29 20:55] LABS: C REACTIVE PROTEIN QUANTITATIV 14.1 MG/DL (0.00-0.30)
[2019-06-29] MEDS: TRIAMCINOLONE ACET 0.1% OINTMENT 15 GM TOP SCH (21:06)
[2019-06-29 22:00] VITALS: BP 119/61
[2019-06-29 22:46] LABS: URINE TOTAL PROTEIN 12.5 MG/DL (0-12)
[2019-06-30 06:00] VITALS: BP 121/74
--- NOTE | 2019-06-30 08:06 | REP ---
The deep veins demonstrate normal compression, normal Doppler color flow and normal Doppler waveforms with respiration and augmentation from the distal femoral vein to the common femoral vein. There is nonocclusive thrombus in the popliteal vein. 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 Impression: Nonocclusive thrombus in the popliteal vein. Chase's cyst. Electronically Signed by Denton Jamil MD 06/28/2019 12:52 P
[2019-06-30] MEDS: HumaLOG INSULIN (NovoLOG) PER UNIT SC SCH ×5 (08:24→21:00)
[2019-06-30] MEDS: metFORMIN (GLUCOPHAGE) 500 MG TAB PO SCH ×2 (08:24→17:06)
[2019-06-30] MEDS: PRAVASTATIN 20 MG TAB PO SCH (08:24)
[2019-06-30] MEDS: CitaloPRAM (CeleXA) 20 MG TAB PO SCH (08:24)
[2019-06-30] MEDS: glipiZIDE *2.5MG* 1/2 TABLET PO SCH (08:24)
[2019-06-30] MEDS: TRIAMCINOLONE ACET 0.1% OINTMENT 15 GM TOP SCH ×2 (08:25→21:08)
--- NOTE | 2019-06-30 08:49 | IPNPDOC ---
Date Seen The patient was seen on 06/30/19. Progress Note SUBJECTIVE: c/o erythematous skin changes on the right leg new from last night. antibiotics discontinued yesterday as no signs of cellulitis. university counselor to see pt. c/o weakness needing 1 person assistance to get out of bed. not safe for discharge per physical therapy. PHYSICAL EXAMINATION: VITALS: PLS SEE BELOW Generally daughter at bedside, patient is awake, alert, oriented to herself. She is in no respiratory distress. She is not using accessory respiratory muscles. No jugular venous distention. No cyanosis. No icterus. No jaundice. Pupils are round and reactive. Extraocular muscles are intact. Face is symmetric. Speech is fluent. No facial asymmetry. Tongue is midline. Neck is supple. No cervical lymphadenopathy or thyromegaly. Lungs are clear to auscultation. There is no wheezing, rales or rhonchi. Air entry is equal bilaterally. Heart: S1, S2. Sinus tachycardia. Abdomen is soft, nontender, nondistended. Positive bowel sounds times four quadrants. No rebound, guarding or hepatosplenomegaly. Extremities: Patient has erythema on the dorsal aspect of the left lower extremity. There is marked edema left greater than the right, 2+ on the left, 1+ on the right. She has some tenderness on examination dorsalis pedis, posterior tibialis have been noted. right leg erythematous tender macules without induration nonmobile. LABORATORY DATA, IMAGING STUDIES, MICROBIOLOGY: PLS SEE BELOW ASSESSMENT AND PLAN: This is an 89-year-old female, past medical history of diabetes, paroxysmal atrial fibrillation on warfarin, breast cancer, cerebrovascular accident with residual memory deficit, reflux, dyslipidemia, chronic deep venous thrombosis in the left lower extremity, cellulitis, and pneumonia presents after being discharged for cellulitis and DVT with popliteal cyst with acute onset of pain, swelling and edema. IMPRESSION: 1. chronic venous insufficiencey with b/l LE left>rt with chronic LLE DVT The patient has chronic thrombus and history of Chase's cyst. She did have a white count without fever, chills, but complains of significant pain, tenderness, swelling, and edema. She has received intravenous vancomycin and ceftriaxone in the emergency room (ER) and intravenous ceftaroline on the floor. ID discontinued as no signs of cellulitis. 2. Chronic left lower extremity DVT with two other prior admission for the same complaint. Dr. Sanders vascular surgery to evaluate for thrombectomy. This is not emergent. The patient's anterior pulses are well noted, and lower extremity is pink, dry with adequate pulses with no concerns for compartment syndrome. if no inpt need for intervention, may fu w vascular surgery as outpt. continue anticoagulation 3. Bilateral LE rash.university counselor consulted. Rheum workup . 4. History of paroxysmal atrial fibrillation. On chronic anticoagulation. The patient is resumed on her home dose of warfarin. The patient does have some tachycardia. Treatment would be the same should she have pulmonary embolism. 5. Pulmonary nodules. Repeat CT that was performed in November of this year is concerning for two pulmonary nodules that have increased in size. In light of prior history of breast cancer concerning for metastatic disease, at this time I have discussed at length with the family that at her age of 89 and no acute issues from potential recurrence metastatic disease biopsy is not emergent unless the patient requests. At this time, should the patient become symptomatic with shortness of breath and persistent tachycardia, we will continue with anticoagulation for DVT and potentially evaluate for a pulmonary embolism. 6. Thyroid nodules. At the patient's age, will check thyroid function tests. Since the patient has not received intravenous contrast yet, may consider doing a radioactive iodine essay should the patient want further investigation into the thyroid nodule. 7. Type 2 diabetes. Will continue on consistent carbohydrate diet, insulin sliding scale. 8. History of breast cancer with lymph node dissection, chemotherapy in the past. The patient has pulmonary nodules concerning for metastatic disease. She has had chemotherapy in the past. Family per patient wishes have declined further evaluation despite risk of untreated recurrent malignancy. 9. Reflux disease. Continue on proton pump inhibitor (PPI). 10. Dyslipidemia. Continue on home medications. 11. History of CVA secondary to paroxysmal atrial fibrillation with residual memory deficit complicating her care. She is continued on anticoagulation. Health care proxy is available for medical decision-making at this time. 12. Code status. DO NOT RESUSCITATE. 13. Obesity. Body mass index (BMI) of 36.4 complicating her care. disposition: failed HSE. may need placement. VS, I&O, 24H, Fishbone Vital Signs/I&O Vital Signs Date Time Temp Pulse Resp B/P (MAP) Pulse Ox O2 Delivery O2 Flow Rate FiO2 06/30/19 06:00 97.9 78 19 121/74 (90) 98 06/28/19 13:57 Room Air I&O- Last 24 Hours up to 6 AM 06/30/19 06:00 Intake Total 1320 ml Output Total 700 ml Balance 620 ml Laboratory Data 24H LABS Laboratory Tests 2 06/29/19 11:35: Bedside Glucose (Misc Panel) 175H 06/29/19 16:19: Bedside Glucose (Misc Panel) 76L 06/29/19 18:14: 06/29/19 18:23: Total Protein (PEP) 6.6, HIV Antigen/Antibody Combo Qual NEGATIVE 06/29/19 20:41: Bedside Glucose (Misc Panel) 210H 06/29/19 22:00: Urine Total Protein mg/dL 12.5H 06/30/19 05:32: Bedside Glucose (Misc Panel) 205H Microbiology Microbiology 06/28/19 Blood Culture - Preliminary, Resulted No growth after 24 hours . All specim... 06/28/19 Blood Culture - Preliminary, Resulted No growth after 24 hours . All specim... 06/28/19 MRSA Screen - Final, Complete NATI RAWLS MD Jun 30, 2019 08:49
[2019-06-30 09:10] LABS: BLOOD UREA NITROGEN 26 MG/DL (7-18); CALCIUM LEVEL 8.8 MG/DL (8.8-10.2); CARBON DIOXIDE LEVEL 31 MEQ/L (21-32); CHLORIDE LEVEL 98 MEQ/L (98-107); CREATININE FOR GFR 0.83 MG/DL (0.55-1.30); GLOMERULAR FILTRATION RATE > 60.0 (>32); GLUCOSE, FASTING 187 MG/DL (70-100); POTASSIUM SERUM 3.6 MEQ/L (3.5-5.1); SODIUM LEVEL 136 MEQ/L (136-145)
--- NOTE | 2019-06-30 10:00 | REP ---
PA and lateral chest: Comparison is 06/20/2019. There is a right infrahilar density, unchanged. This could represent infiltrate, nodule or mass. Consider follow-up CT for further evaluation. Lung perez otherwise clear and unchanged. There is cardiomegaly, unchanged. There are surgical clips in the right axilla, unchanged. Mediastinum and skeletal structures are unremarkable. Impression: Right infrahilar density, unchanged. Consider CT CT to evaluate for infiltrate versus nodule/mass. Cardiomegaly. Surgical clips in the right axilla. Electronically Signed by Denton Jamil MD 06/30/2019 09:51 A
[2019-06-30 11:03] LABS: ANTI-STREPTOLYSIN O QUANT 53.7 IU/ML (<214.0)
[2019-06-30 13:47] LABS: ALBUMIN % 43.2 % (55.8-66.1); ALPHA-1-GLOBULIN % 6.7 % (2.9-4.9)
[2019-06-30 13:48] LABS: ALBUMIN 2.85 GM/DL (3.29-5.55); ALPHA-1-GLOBULINS 0.44 GM/DL (0.17-0.41); ALPHA-2-GLOBULINS 1.23 GM/DL (0.42-0.99); ALPHA-2-GLOBULINS % 18.7 % (7.1-11.8); BETA-1-GLOBULINS 0.48 GM/DL (0.28-0.60); BETA-1-GLOBULINS % 7.2 % (4.7-7.2); BETA-2-GLOBULINS 0.79 GM/DL (0.19-0.55); BETA-2-GLOBULINS % 11.9 % (3.2-6.5); GAMMA GLOBULIN % 12.3 % (11.1-18.8); GAMMA GLOBULINS 0.81 GM/DL (0.65-1.58)
[2019-06-30 14:00] VITALS: BP 134/81
[2019-06-30 14:21] LABS: BASO % 0.2 % (0.0-1.0); EOS # 0.2 10^3/uL (0.0-0.50); EOS % 0.9 % (0.0-3.0); HEMATOCRIT 35.9 % (36.0-47.0); HEMOGLOBIN 11.4 g/dl (12.0-15.5); LYMPH # 1.3 10^3/uL (1.5-4.5); MEAN CORPUSCULAR HEMOGLOBIN 30.1 pg (27.0-33.0); MEAN CORPUSCULAR HGB CONC 31.8 g/dl (32.0-36.5); MEAN CORPUSCULAR VOLUME 94.7 fl (80.0-96.0); MONO # 1.7 10^3/uL (0.0-0.8); MONO % 10.8 % (0.0-5.0); NEUTROPHILS # 12.7 10^3/uL (1.8-7.7); NEUTROPHILS % 79.7 % (36.0-66.0); PLATELET COUNT, AUTOMATED 343 10^3/uL (150-450); RED BLOOD COUNT 3.79 10^6/uL (4.00-5.40)
[2019-06-30] MEDS: TORSEMIDE 20 MG TAB PO SCH (15:11)
[2019-06-30] MEDS: ACETAMINOPHEN TAB 650MG DOSE (2X325MG) PO PRN (15:12)
[2019-06-30] MEDS: WARFARIN SOD 5 MG TAB PO SCH (17:07)
[2019-06-30] MEDS: ACETAMINOPHEN 500 MG TAB PO PRN (21:44)
[2019-06-30 22:00] VITALS: BP 125/58
--- NOTE | 2019-06-30 22:40 | CR.PDOC ---
General Date of Admission Jun 28, 2019 at 13:39 Date of Service: Jun 30, 2019 Attending Physician: NATI RAWLS MD Chief Complaint The patient is a 89-year-old female admitted with left lower extremity DVT, cellulitis, pain and swelling. Source: Patient, Family, Old records Exam Limitations: No limitations Timing/Duration: Week(s) Severity: Severe Associated Symptoms: Fever, Chills, Rash History of Present Illness Patient is an 89-year-old female admitted to the hospital on 06/28/2019 with left lower extremity pain, swelling, cellulitis and deep venous thrombosis. Home Medications Scheduled Calcium Carbonate/Vitamin D3 (Calcium 600-Vit D3 800 Tablet) 1 Tab Tab, 1 TAB PO DAILY, (Reported) Cholecalciferol (Vitamin D3) (Vitamin D3) 5,000 Unit Tab, 5,000 UNIT PO QPM, (Reported) TAKES AT 1500 Citalopram Hydrobromide (Celexa) 20 Mg Tablet, 20 MG PO DAILY, (Reported) Fluticasone/Vilanterol (Breo Ellipta 100-25 Mcg INH) 1 Each Blst.w.dev, 1 PUFF INH DAILY, (Reported) Glipizide (Glipizide) 5 Mg Tablet, 2.5 MG PO DAILY, (Reported) Metformin HCl (Metformin HCl) 500 Mg Tab, 500 MG PO BID, (Reported) AT 0600 AND 1800. Potassium Chloride (Klor-Con M20) 20 Meq Tabcr, 20 MEQ PO DAILY, (Reported) Pravastatin Sodium (Pravachol) 80 Mg Tab, 80 MG PO DAILY, (Reported) Torsemide (Torsemide) 20 Mg Tab, 20 MG PO DAILY, (Reported) TAKES AT 1500 Vitamin B Complex (Vitamin B Complex) 1 Each Tablet, 1 TAB PO DAILY, (Reported) Warfarin Sodium (Warfarin Sodium) 5 Mg Tablet, 5 MG PO 5XW, (Reported) QPM: SUN, TUES, WED, , SAT Warfarin Sodium (Warfarin Sodium) 2.5 Mg Tablet, 2.5 MG PO 2XW, (Reported) QPM: MON, FRI Zinc (Zinc) 50 Mg Tablet, 50 MG PO DAILY, (Reported) Scheduled PRN Acetaminophen (Tylenol Extra Strength) 500 Mg Tablet, 1,000 MG PO TID PRN for PAIN, (Reported) Albuterol Sulfate (Proair Hfa) 108 Mcg/Act Aer, 2 PUFF INH Q4H PRN for SHORTNESS OF BREATH, (Reported) Allergies Coded Allergies: No Known Allergies (Unverified , 06/15/19) Past Medical History Medical History Diabetes mellitus type 2 Breast cancer status post axillary lymph node dissection and chemotherapy in 2004 Paroxysmal atrial fibrillation treated with Coumadin Cerebral vascular accident Dyslipidemia Gastroesophageal reflux disease 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 Thrombophlebitis with the first episode in the 1949s Lymphedema Pneumonia Surgical History Colonoscopy in 2015 Incisional hernia repair in 2006 Colonoscopy with polypectomy in 2005 Right total knee replacement 01/14/2017 Right breast lumpectomy and axillary lymph node dissection in 2004 with post operative chemotherapy secondary to breast cancer Laparoscopic cholecystectomy in 1995 Colonoscopy with polypectomy in 1994 Hysterectomy and Appendectomy in 1971 Review of Systems Review of Systems General: Reports: Chills; Denies: Night Sweats, Fatigue, Malaise, Normal Appetite Constitutional: Reports: Chills, Fever; Denies: Malaise, Night Sweats, Weakness, Fatigue, Weight Loss, Lethargy Eyes: Denies: Pain, Vision change, Conjunctivae inflammation, Eyelid inflammation, Redness HEENT: Denies: Head Aches, Ear Pain, Dysphagia, Sinus Congestion, Post Nasal Drip, Sore Throat, Epistaxis Skin: Reports: Rash; Denies: Lesions, Jaundice, Bruising, Itching, Dry, Breakdown, Nail Changes Pulmonary: Denies: Dyspnea, Cough, Pleuritic Chest Pain Cardiovascular: Denies: Chest Pain, Palpitations, Orthopnea, Paroxysmal Noc. Dyspnea, Edema, Lt Headedness Gastrointestinal: Denies: Nausea, Vomiting, Abdominal Pain, Diarrhea, Constipation, Melena, Hematochezia Genitourinary: Denies: Dysuria, Frequency, Incontinence, Hematuria, Retention Hematologic: Denies: Bruising, Bleeding Excessively, Petecchia, Purpura, Enlarged Lymph Nodes ENDOCRINE: Denies: Polydipsia, Polyphagia, Polyuria, Heat Intolerance, Cold Intolerance Musculoskeletal: Reports: Leg Pain, Foot Pain; Denies: Neck Pain, Back Pain, Shoulder Pain, Arm Pain, Hand Pain, Joint Pain, Muscle Pain, Spasms Neurological: Denies: Weakness, Numbness, Incoordination, Change in speech, Confusion, Seizures Psych: Reports: Mood Normal; Denies: Anxiety, Depression, Memory Issues, Thoughts of Self Harm, Anger, T houghts of Harming Other VS, I&O, 24H, [facility] Vital Signs/I&O Vital Signs Date Time Temp Pulse Resp B/P (MAP) Pulse Ox O2 Delivery O2 Flow Rate FiO2 06/30/19 16:00 99.3 06/30/19 14:00 91 18 134/81 (98) 91 06/28/19 13:57 Room Air I&O- Last 24 Hours up to 6 AM 06/30/19 06:00 Intake Total 1320 ml Output Total 700 ml Balance 620 ml Laboratory Data 24H LABS Laboratory Tests 2 06/29/19 22:00: Urine Total Protein mg/dL 12.5H 06/30/19 05:32: Bedside Glucose (Misc Panel) 205H 06/30/19 07:56: Immature Granulocyte % (Auto) 0.4, White Blood Count 16.0H, Red Blood Count 3.79L, Hemoglobin 11.4L, Hematocrit 35.9L, Mean Corpuscular Volume 94.7, Mean Corpuscular Hemoglobin 30.1, Mean Corpuscular Hemoglobin Concent 31.8L, Red Cell Distribution Width 13.4, Platelet Count 343, Neutrophils (%) (Auto) 79.7H, Lymphocytes (%) (Auto) 8.0L, Monocytes (%) (Auto) 10.8H, Eosinophils (%) (Auto) 0.9, Basophils (%) (Auto) 0.2, Neutrophils # (Auto) 12.7H, Lymphocytes # (Auto) 1.3L, Monocytes # (Auto) 1.7H, Eosinophils # (Auto) 0.2, Basophils # (Auto) 0.0, Nucleated Red Blood Cells % (auto) 0.0 06/30/19 08:03: Anion Gap 7L, Glomerular Filtration Rate > 60.0, Blood Urea Nitrogen 26H, Creatinine 0.83, Sodium Level 136, Potassium Level 3.6, Chloride Level 98, Carbon Dioxide Level 31, Calcium Level 8.8, Anti-Streptolysin O Antibody 53.7 06/30/19 11:14: Bedside Glucose (Misc Panel) 155H 06/30/19 15:38: 06/30/19 16:47: Bedside Glucose (Misc Panel) 133H CBC/BMP Laboratory Tests 06/30/19 07:56 Red Blood Count 3.79 L, Mean Corpuscular Volume 94.7, Mean Corpuscular Hemoglobin 30.1, Mean Corpuscular Hemoglobin Concent 31.8 L, Red Cell Distribution Width 13.4, Neutrophils (%) (Auto) 79.7 H, Lymphocytes (%) (Auto) 8.0 L, Monocytes (%) (Auto) 10.8 H, Eosinophils (%) (Auto) 0.9, Basophils (%) (Auto) 0.2, Neutrophils # (Auto) 12.7 H, Lymphocytes # (Auto) 1.3 L, Monocytes # (Auto) 1.7 H, Eosinophils # (Auto) 0.2, Basophils # (Auto) 0.0 06/30/19 08:03 Calcium Level 8.8 Microbiology Microbiology 06/28/19 Blood Culture - Preliminary, Resulted No Growth after 48 hours. All Specime... 06/28/19 Blood Culture - Preliminary, Resulted No Growth after 48 hours. All Specime... 06/28/19 MRSA Screen - Final, Complete Objective Physical Examination General Exam: Positive: Alert, Cooperative, No Acute Distress Eye Exam: Positive: PERRLA, Conjunctiva & lids normal, EOMI ENT Exam: Positive: Atraumatic, Mucous membr. moist/pink, Pharynx Normal, Tong ue Midline, Nares Patent, Ext Auditory Canal Nml, Pinna Normal Neck Exam: Positive: Supple, +2 carotid pulse wo bruit; Negative: JVD, thyromegaly, Lymphadenopathy Chest Exam: Positive: Clear to auscultation, Normal air movement; Negative: Rales, Rhonchi, Wheezing, Diminished Heart Exam: Positive: Rate Normal, Regular Rhythm; Negative: Irregular Rhythm, Gallops, Murmurs, Rubs Telemetry: Positive: No significant arrhythmia, Sinus Abdomen Exam: Positive: Normal bowel sounds, Soft; Negative: Tenderness, Hepatospenomegaly, Mass, Hernia Extremity Exam: Positive: Edema, Normal pulses, Tenderness, Swelling Skin Exam: Positive: Nl turgor and temperature; Negative: Breakdown, Lesion, Pruritus Neuro Exam: Positive: Normal Gait, Normal Speech, Strength at 5/5 X4 ext, Normal Tone, Sensation Intact, Cranial Nerves 3-12 NL, Reflexes 2+ Psych Exam: Positive: Mental status NL, Mood NL, Memory Intact, Oriented x 3 Date of Service NOTE NAME: MYRANDA ALLEN DATE OF : 1930 AGE: 89 SEX: F REPORT #: [id number] ROOM: [facility] TECHNOLOGIST: NEREYDA DOCTOR: BHAKTI HARRIS MD Ordered for Date&Time: 06/28/19 1142 cc: [~ rep ct ivnm] Service Date&Time: 06/28/19 1245 EXAMINATION REQUESTED: Duplex, Ext,LOWER veins,unilat LEFT REASON FOR PATIENT VISIT: CELLULITIS OF LEFT LEG REASON FOR EXAM/COMMENT: pain The deep veins demonstrate normal compression, normal Doppler color flow and normal Doppler waveforms with respiration and augmentation from the distal femoral vein to the common femoral vein. There is nonocclusive thrombus in the popliteal vein. 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 Impression: Nonocclusive thrombus in the popliteal vein. Chase's cyst. Electronically Signed by Denton Jamil MD 06/28/2019 12:52 P NAME: MYRANDA ALLEN DATE OF : 1930 BUSINESS NUMBER: [id number] AGE: 89 SEX: F REPORT #: [id number] ROOM: [facility] TECHNOLOGIST: KIMO DOCTOR: Christiana Gan PA-C Ordered for Date&Time: 06/20/19 1802 cc: [~ rep ct ivnm] Service Date&Time: EXAMINATION REQUESTED: Duplex, Ext,LOWER veins,unilat LEFT REASON FOR PATIENT VISIT: LEG PAIN REASON FOR EXAMINATION: DVT LEFT LEG, EVAL FOR EXTENSION EXAM: US Duplex Left Lower Extremity Veins, Limited EXAM DATE/TIME: 06/20/2019 6:02 PM CLINICAL HISTORY: 89 years old, female; Swelling (edema) of limb; Lower extremity, left; Additional info: Dvt left leg, eval for extension TECHNIQUE: Imaging protocol: Real-time Duplex ultrasound of the Left Lower Extremity with 2-D oquendo scale, color Doppler flow and spectral waveform analysis with image documentation. Limited exam focused on the left lower extremity veins. COMPARISON: US Duplex, Ext,LOWER veins,unilat 06/15/2019 12:34 PM FINDINGS: There is a linear echogenic area within the common femoral vein and seen on previous exams consistent with a band of fibrous tissue/fibrin. At the popliteal vein there is a thin echogenic area located posterior/nonocclusive and probably the result of chronic thrombus. This is seen on the previous examination and unchanged. This is probably also unchanged from an examination of 04/25/2018. Venous return is noted throughout the deep veins of the left leg. There is a popliteal cyst estimated at 5 CM in length by 2 CM in thickness and also seen on the previous exams. IMPRESSION: 1. 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 Venous return noted through these areas and no occlusion. 2. Moderate popliteal cyst. Electronically signed by: Lazaro David On 06/20/2019 20:04:10 PM NAME: MYRANDA ALLEN DATE OF : 1930 AGE: 89 SEX: F REPORT #: [id number] ROOM: [facility] INP TECHNOLOGIST: WOODY DOCTOR: BAMBI GOEL PA-C Ordered for Date&Time: 06/15/19 1147 cc: [~ rep ct ivnm] Service Date&Time: 06/15/19 1245 EXAMINATION REQUESTED: Duplex, Ext,LOWER veins,unilat LEFT REASON FOR PATIENT VISIT: DVT REASON FOR EXAM/COMMENT: leg swelling REASON: Pain and swelling. Multiple ultrasonographic images of the deep venous structures of the left thigh were obtained from the level of the common femoral vein to the popliteal vein along with Doppler interrogation and augmentation techniques with color Doppler imaging as well. There is a linear area of increased echoes seen in the common femoral vein. The popliteal vein does not show wall coaptability on compression techniques and echogenic material is seen within the popliteal vein. In the posterior popliteal soft tissues, there is a 5.8 x 1.6 x 4 cm sized complex fluid collection. IMPRESSION: There is evidence of deep vein thrombosis involving the deep vein structures of the left thigh as described above. The findings involving the common femoral vein seen today are new compared to an old exam of 04/25/2018 while the echogenic material and non-coaptability seen involving the popliteal vein today were also noted on that prior exam. I cannot rule out the possibility of acute disease superimposed upon chronic change. Additionally, the Chase's cyst seen on that prior exam has increased in size. Electronically Signed by Taco Gonzales DO 06/15/2019 04:47 P Assessment/Plan Assessment Patient is an 89-year-old female with debilitating left lower extremity swelling secondary to chronic DVT and post phlebitic syndrome with worsening over the last 3-4 weeks and may be secondary to new onset DVT and possible obstruction in the left common femoral vein. Plan Patient would benefit from undergoing venography of her left lower extremity to evaluate any reversible obstructive lesions that may reduce the swelling in the left lower extremity. Patient may be a candidate for thrombolysis if necessary but this will be discussed with the patient's daughter who is her healthcare proxy. Jarett Sanders MD Jun 30, 2019 21:48
[2019-07-01] MEDS: ACETAMINOPHEN TAB 650MG DOSE (2X325MG) PO PRN ×3 (03:51→22:03)
[2019-07-01 06:56] VITALS: BP 130/63
[2019-07-01] MEDS: PRAVASTATIN 20 MG TAB PO SCH (08:09)
[2019-07-01] MEDS: glipiZIDE *2.5MG* 1/2 TABLET PO SCH (08:09)
[2019-07-01] MEDS: CitaloPRAM (CeleXA) 20 MG TAB PO SCH (08:10)
[2019-07-01] MEDS: HumaLOG INSULIN (NovoLOG) PER UNIT SC SCH ×4 (08:10→22:05)
[2019-07-01] MEDS: metFORMIN (GLUCOPHAGE) 500 MG TAB PO SCH ×2 (08:10→17:54)
[2019-07-01] MEDS: TRIAMCINOLONE ACET 0.1% OINTMENT 80 GM TOP SCH ×2 (09:00→22:05)
[2019-07-01 09:14] LABS: HEMATOCRIT 35.2 % (36.0-47.0); HEMOGLOBIN 11.1 g/dl (12.0-15.5); MEAN CORPUSCULAR HEMOGLOBIN 29.8 pg (27.0-33.0); MEAN CORPUSCULAR HGB CONC 31.5 g/dl (32.0-36.5); MEAN CORPUSCULAR VOLUME 94.6 fl (80.0-96.0); PLATELET COUNT, AUTOMATED 341 10^3/uL (150-450); RED BLOOD COUNT 3.72 10^6/uL (4.00-5.40); WHITE BLOOD COUNT 14.1 10^3/uL (4.0-10.0)
[2019-07-01 09:31] LABS: INR 3.45; PROTHROMBIN TIME 34.7 SECONDS (11.8-14.0)
[2019-07-01 09:43] LABS: BLOOD UREA NITROGEN 21 MG/DL (7-18); CALCIUM LEVEL 8.1 MG/DL (8.8-10.2); CARBON DIOXIDE LEVEL 30 MEQ/L (21-32); CHLORIDE LEVEL 101 MEQ/L (98-107); CREATININE FOR GFR 0.74 MG/DL (0.55-1.30); GLOMERULAR FILTRATION RATE > 60.0 (>32); GLUCOSE, FASTING 158 MG/DL (70-100); POTASSIUM SERUM 3.6 MEQ/L (3.5-5.1); SODIUM LEVEL 138 MEQ/L (136-145)
--- NOTE | 2019-07-01 11:12 | IPN ---
DATE: 06/30/2019 Mrs. Dent complains of being weak in general. She was not able to get out of bed today due to weakness. She did not clear physical therapy to get discharged home. She was seen by the vascular surgeon, Dr. Sanders. She had new lesions on the right leg that are painful. PHYSICAL EXAMINATION: Heart: Normal S1 and S2. No murmurs. Tachycardiac. Lungs: Clear. No wheezes, rales or rhonchi. Abdomen: Obese, soft, nontender. No visceromegaly. Extremities: Bilateral lower extremities have erythema. Left below the knee has induration and erythema diffusely on the background of hyperpigmented venous stasis changes. Right lower extremity has more discrete nodules. Left upper thigh has another discrete nodule that is quite tender. Lesions measure anywhere from 2-3 cm. LABORATORY DATA: White count 16, hemoglobin 11.4, hematocrit 35.9, platelets 343, 79% neutrophils, 8% lymphocytes, 10% monocytes. Sed rate 70. Sodium 136, potassium 3.6, chloride 98, bicarb 31, BUN 26, creatinine 0.83, glucose 187, calcium 8.8. SPEP shows no M-spike noted. TSH and free T4 normal. Urine protein electrophoresis is pending. HIV negative. Saccharomyces antibody pending. ASO titer 53.7. QuantiFERON TB Gold is pending. Methicillin-resistant Staphylococcus aureus (MRSA) screen was negative . Blood cultures two sets were negative this admission, two previous sets were negative prior. IMPRESSION: 1. Bilateral lower extremity lesions suggestive of vasculitis versus erythema nodosa. So far negative workup. Plan to have Dr. Hi see the patient as she cannot be discharged. She did not clear physical therapy (PT). He will see her as an inpatient. 2. Abnormal chest x-ray with right infrahilar density. Would obtain followup CT to rule out nodule or mass. She had a previous history of noncalcified pulmonary nodule in the right upper lobe unchanged from a study done in 2015. 3. Deep vein thrombosis (DVT), on warfarin. PLAN: I have consulted Dr. Hi to do the biopsy per request of the family since the patient is not cleared for discharge and has been getting weaker. GUANAKO, CCP, ADMINISTRATIVE SUPERVISOR, double-stranded DNA are pending. TB Gold pending.
[2019-07-01] MEDS ORDERED: traMADol 50 MG TAB PO ONE (11:15)
[2019-07-01] MEDS ORDERED: predniSONE 20 MG TAB PO ONE (11:15)
[2019-07-01] MEDS ORDERED: PILL CUTTER 1 EACH XX PRN (11:30)
[2019-07-01] MEDS: raNITIdine SYRUP 150 MG/10 ML UDC PO SCH ×2 (12:00→22:04)
--- NOTE | 2019-07-01 12:08 | REP ---
CT of the chest without IV contrast for evaluation of a right infra hilar density and recent plain films. There is mild varus inches CT dated 11/06/1928. On the comparison chest CT there were four lung nodules as follows: Left upper lobe posteriorly, image 17, 4 mm, unchanged. Right upper lobe posteriorly, image 22, 8 mm, unchanged. Right upper lobe posteriorly, image 24, 6 mm, unchanged. Right middle lobe, image 52, 4 mm, 6 mm previously. On the prior study there was a 4 ml nodule on image 24 just anterior to the above described 8 mm nodule. This 4 mm nodule has resolved and is no longer present. There are no enlarging nodules. There are no new nodules. There is an obliquely oriented parenchymal scar inferomedially in the right lung at the cardiophrenic angle, likely accounting for the density on the recent plain film study. This is stable and unchanged from the comparison CT. The previous right pleural effusion has resolved. There is compression atelectasis of the right lung as a consequence of the effusion previously. This has also there is. There are no acute infiltrates. There are no pleural effusions. There is bilateral lower lobe bronchiectasis, as previously. The unenhanced thoracic aorta is unremarkable. The pulmonary trunk measures 4 cm in diameter and is dilated. This is compatible with pulmonary hypertension and is unchanged. Cardiac size is enlarged, unchanged. There is no pericardial effusion. There is no mediastinal or hilar lymph node enlargement. There are surgical clips in the right axilla. This is unchanged. The study is insensitive for hilar lymph node enlargement in the absence of IV contrast. Upper abdomen: There are surgical clips in the gallbladder fossa. This is unchanged. There is no adrenal mass. There are a few calcifications. The pancreatic tail, unchanged, possibly from previous pancreatitis. Impression: The previous right pleural effusion has resolved. There is a parenchymal scar inferomedially in the right lung, unchanged from the prior CT, likely accounting for the density on the recent plain film study. There are multiple lung nodules as described. There are no enlarging nodules. One nodule has resolved and is no longer present. Cardiomegaly. Dilated pulmonary trunk, compatible with pulmonary hypertension. Bronchiectasis. Surgical clips in the right axilla. Surgical clips in the gallbladder fossa. Electronically Signed by Denton Jamil MD 07/01/2019 08:49 A
[2019-07-01] MEDS ORDERED: hydrOXYzine 10 MG TAB PO ONE (13:00)
--- NOTE | 2019-07-01 13:30 | IPNPDOC ---
Date Seen The patient was seen on 07/01/19. Progress Note SUBJECTIVE: c/o reddish, painful, tender lumps in the b/l shins, now spreading to b/l upper thighs on the lateral left about 1.5 to 2cm diameter. no fever or chills. still c/o pain the left LE. workup for TB,sarcoid, IBD, cancer pending results. Derm and ID consulted. Family requested repeat CT chest to further eval pulm nodules with h/o breast ca in the past. Family requesting "stronger" medication for pain aside from scheduled tylenol. Daughter requesting podiatry consult for toenails. CT chest pending report Vascular Surgery to schedule venography and thrombectomy for chronic left LE DVT PHYSICAL EXAMINATION: VITALS: PLS SEE BELOW Generally AAO to person and place only. pleasantly confused, but cooperative daughter at bedside, patient is awake, alert, oriented to herself. She is in no respiratory distress. She is not using accessory respiratory muscles. No jugular venous distention. No cyanosis. No icterus. No jaundice. Pupils are round and reactive. Extraocular muscles are intact. Face is symmetric. Speech is fluent. No facial asymmetry. Tongue is midline. Neck is supple. No cervical lymphadenopathy or thyromegaly. Lungs are clear to auscultation. There is no wheezing, rales or rhonchi. Air entry is equal bilaterally. Heart: S1, S2. Sinus tachycardia. Abdomen is soft, nontender, nondistended. Positive bowel sounds times four quadrants. No rebound, guarding or hepatosplenomegaly. Extremities: Patient has erythema on the dorsal aspect of the left lower extremity. There is marked edema left greater than the right, 2+ on the left, 1+ on the right. She has some tenderness on examination dorsalis pedis, posterior tibialis have been noted. skin: multiple 1.5 to 2cm tender erythematous mobile well circumscribed nodules on the b/l shins, hips on lateral aspect. LABORATORY DATA, IMAGING STUDIES, MICROBIOLOGY: PLS SEE BELOW ASSESSMENT AND PLAN: This is an 89-year-old female, past medical history of diabetes, paroxysmal atrial fibrillation on warfarin, breast cancer, cerebrovascular accident with residual memory deficit, reflux, dyslipidemia, chronic deep venous thrombosis in the left lower extremity, cellulitis, and pneumonia presents after being discharged for cellulitis and DVT with popliteal cyst with acute onset of pain, swelling and edema. IMPRESSION: b/l LE left>rt chronic venous insufficiency with chronic LLE DVT The patient has chronic thrombus and history of Chase's cyst. She did have a white count without fever, chills, but complains of significant pain, tenderness, swelling, and edema. s/p intravenous vancomycin and ceftriaxone in the emergency room (ER) and intravenous ceftaroline on the floor. ID d iscontinued as no signs of cellulitis. Chronic left lower extremity DVT with two other prior admission for the same complaint. Dr. Sanders vascular surgeryrecommends thrombectomy. no concerns for compartment syndrome. Family gives consent to proceed as pt is demented. Erythema nodosum b/l LE extremities workup pending. Derm and ID consulted. for symptomatic relief, short course of steroids, zantac, atarax, and topical triamcinolone. History of paroxysmal atrial fibrillation. On chronic anticoagulation. The patient is resumed on her home dose of warfarin. The patient does have some tachycardia. Treatment would be the same should she have pulmonary embolism. Pulmonary nodules. Repeat CT that was performed in November of this year is concerning for two pulmonary nodules that have increased in size. In light of prior history of breast cancer concerning for metastatic disease, at this time I have discussed at length with the family that at her age of 89 and no acute issues from potential recurrence metastatic disease biopsy is not emergent unless the patient requests. At this time, should the patient become symptomatic with shortness of breath and persistent tachycardia, we will continue with anticoagulation for DVT and potentially evaluate for a pulmonary embolism. per family request, repeat ct done . Thyroid nodules. reviewed thyroid tests Type 2 diabetes. Will continue on consistent carbohydrate diet, insulin sliding scale. History of breast cancer with lymph node dissection, chemotherapy in the past. The patient has pulmonary nodules concerning for metastatic disease. She has had chemotherapy in the past. Family per patient wishes have declined biopsy Reflux disease. Continue on proton pump inhibitor (PPI). Dyslipidemia. Continue on home medications. History of CVA secondary to paroxysmal atrial fibrillation with residual memory deficit complicating her care. She is continued on anticoagulation. Health care proxy is available for medical decision-making at this time. Code status. DO NOT RESUSCITATE. Obesity. Body mass index (BMI) of 36.4 complicating her care. disposition: failed HSE. supportive family, prefers dc home. VS, I&O, 24H, [place] Vital Signs/I&O Vital Signs Date Time Temp Pulse Resp B/P (MAP) Pulse Ox O2 Delivery O2 Flow Rate FiO2 07/01/19 12:00 17 07/01/19 06:56 96.6 91 130/63 (85) 92 06/28/19 13:57 Room Air I&O- Last 24 Hours up to 6 AM 07/01/19 06:00 Intake Total 1210 ml Output Total 200 ml Balance 1010 ml Laboratory Data 24H LABS Laboratory Tests 2 06/30/19 15:38: 06/30/19 16:47: Bedside Glucose (Misc Panel) 133H 06/30/19 20:35: Bedside Glucose (Misc Panel) 130H 07/01/19 07:37: Bedside Glucose (Misc Panel) 168H 07/01/19 08:49: Nucleated Red Blood Cells % (auto) 0.0, Prothrombin Time 34.7H, Prothromb Time International Ratio 3.45, Anion Gap 7L, Glomerular Filtration Rate > 60.0, Blood Urea Nitrogen 21H, Creatinine 0.74, Sodium Level 138, Potassium Level 3.6, Chloride Level 101, Carbon Dioxide Level 30, Calcium Level 8.1L CBC/BMP Laboratory Tests 07/01/19 08:49 Red Blood Count 3.72 L, Mean Corpuscular Volume 94.6, Mean Corpuscular Hemoglobin 29.8, Mean Corpuscular Hemoglobin Concent 31.5 L, Red Cell Distribution Width 13.4, Calcium Level 8.1 L Microbiology Microbiology 06/28/19 Blood Culture - Preliminary, Resulted No Growth after 48 hours. All Specime... 06/28/19 Blood Culture - Preliminary, Resulted No Growth after 72 hours. All specime... 06/28/19 MRSA Screen - Final, Complete NATI RAWLS MD Jul 01, 2019 13:30
[2019-07-01 14:00] VITALS: BP 124/70
[2019-07-01] MEDS: TORSEMIDE 20 MG TAB PO SCH (15:27)
[2019-07-01] MEDS: WARFARIN SOD 5 MG TAB PO SCH (17:00)
--- NOTE | 2019-07-01 18:12 | CR.PDOC ---
General Date of Consultation: Jul 01, 2019 Referring Provider: Isma Brown MD Primary Care Physician: Yuan Nguyen MD Attending Physician: NATI RAWLS MD Consultation REASON FOR CONSULTATION/CHIEF COMPLAINT: Lower leg swelling bilaterally but left > right, tender red bumps on legs. HISTORY OF PRESENT ILLNESS: This is an 89-year-old female with a pertinent past medical history of lower extremity acute on chronic deep vein thrombosis (DVT) and cellulitis of the left leg who presented to the emergency room (ER) on 06/28/2019 for worsening left lower leg pain and swelling. The patient was accompanied by her daughter and who provided a majority of the history. Early 06/05/2019, her daughter noticed two red spots on her mother's legs. There was tenderness with palpitation. A couple of days later, the erythema began to progress and they were evaluated at urgent care. At first, she was told it was not cellulitis and was to apply warm compress 20 minutes on and 20 minutes off. This conservative therapy did not help and she was evaluated again by urgent care and they prescribed her seven days of Keflex. They noticed that the erythema and the tenderness began to progress more, to the surrounding lateral and medial side of the patel. They then went to the ER on 06/21/2019 where imaging showed that she had fibrous tissue on her common femoral vein and thin echogenic area of the posterior which is nonocclusive and was diagnosed with a chronic thrombi. She was also discharged on doxycycline, five-day course, which she completed the day of admission. She states the day prior to presentation in the evening time she woke up in pain. She was unable to ambulate and states that the pain was very severe, especially to light touch. She requested her to bring her to the ER for further evaluation. For pain, she only takes Tylenol for pain which provides no relief. She denies any shortness of breath, chest pain, pressure, lightheadedness, or dizziness. She denies having any fevers, chills, or any trauma to the lower extremity. She does ambulate with a walker. She admits that she has a baseline tenderness to the lower extremity after a thrombophlebitis diagnosed in the 1950s. She states that this pain is way more severe than usual. No biopsy or other treatment has happened for her lower legs rash. PAST MEDICAL HISTORY: 1. Thrombophlebitis in 1950. 2. Chronic lymphedema. 3. Chronic deep vein thrombosis (DVT) of the left lower extremity. 4. Pneumonia. 5. Type 2 diabetes. 6. Proximal atrial fibrillation on chronic Coumadin. 7. Prior history of breast cancer with axillary lymph node dissection in 2004, underwent chemotherapy. 8. 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 9. Reflux disease. 10. Dyslipidemia. PAST SURGICAL HISTORY: 1. Hysterectomy. 2. Appendectomy. 3. Laparoscopic cholecystectomy in 1968. 4. Incisional hernia repair in 2006. 5. Right breast lumpectomy with axillary lymph node dissection in 2004, treated with chemotherapy for breast cancer. ALLERGIES: No known drug allergies. HOME MEDICATIONS: - Acetaminophen 1 gram by mouth three times a day as needed - ProAir HFA two puffs every four hours as needed - Celexa 20 mg daily - glipizide 2.5 mg daily - metformin 500 mg twice daily - pravastatin 80 mg daily - torsemide 20 mg daily - warfarin 2.5 mg twice a day, 5 mg five times a week - calcium 600 mg and vitamin D 800 mg daily - vitamin D3 5000 units every evening - Breo Ellipta one puff inhaled daily - potassium chloride 20 mEq daily - vitamin B one tablet daily - zinc 50 mg daily FAMILY HISTORY: Father in his 70s due to complications of emphysema. He used to work in a factory and was a past smoker. Mother in her 80s secondary to dementia and cerebrovascular accident (CVA). SOCIAL HISTORY: The patient lives with her and has six living children. One child has . She is currently . She previously lived in [place] and recently just came to [facility] for the Spring and Summer. She is a former smoker of one-pack per week from the age of 18 to 42. She denies any illicit drug use or current alcohol use. She is currently retired. REVIEW OF SYSTEMS: Unless stated above in the history of present illness (HPI), the remaining 12-point review of systems is negative. PHYSICAL EXAMINATION: VITAL SIGNS: Please see below. GENERAL APPEARANCE: NAD, obese WF resting on her back in bed surrounded by family members HEENT: NC/AT, EOMI RESPIRATORY: RRR CARDIOVASCULAR: + edema of the lower extremities bilaterally to the knees L >> R with regard to circumference ABDOMEN: Supple, tender SKIN & EXTREMITIES: + edema of the lower extremities bilaterally to the knees L >> R with regard to circumference; tender red subcutaneous nodules right lower leg, left lower leg, left lateral thigh to hip; left lower leg with brawny to red macules and patches; stuck on rodriguez to brown keratotic papules face, legs NEUROLOGICAL: A+Ox3 (difficulty with time) PSYCHIATRIC: Mood appropriate, pleasant LABORATORY DATA: Please see below. ASSESSMENT/PLAN: 1. Rash: I favor erythema nodosum > acute to subacute stasis dermatitis changes of the skin given the extension of the process to her left hip and thigh. Family aware. Education provided on the possible diagnosis. I performed a punch biopsy of the right lower leg to one of the newest lesions per daughter, well tolerated. Used 4 mm punch with 4-0 nylon to close, follow up path, wound care reviewed and nursing order placed. Based on biopsy result, will consider ILK to lesions vs. SSKI vs. other anti-inflammatories but will need biopsy results first. Likely cause is old infection or phlebitis leading to inflammation in the body with immunosenescence - given ESR 70 and elevated WBC and neutrophil count - leading to inflammatory panniculitis likely erythema nodosum (which is essentially a reactive process of the fat most common on the lower legs). Agree with lab evaluation to include CXR, CT scan - does have lung nodules that should be evaluated, possible 2/2 old infection such as histo, blasto, possibly prior TB exposure; primary and ID to evaluate and weigh in as this is outside my expertise; HIV negative; quant gold pending; anti-Saccharomyces pending; SPEP/UPEP should be completed if not already performed; GUANAKO and associated labs pending to evaluate for lupus, RF, autoimmune conditions. I reiterated to the daughter and patient that we do not always find a clear cut reason for why erythema nodosum develops. Suture to be removed in 2 weeks (from date of biopsy, please include in discharge planning). 2. Stasis dermatitis/history of phlebitis - Work with vascular surgery, on warfarin with INR 2-3 range - Compression stockings or JCARLOS wraps daily at least 12 hours per day 5 days per week - Elevate her legs at rest - Lower leg massage toward center body may be helpful for this patient 15 minutes per day 3. Seborrheic keratoses - Benign, reassurance Thank you for this consult. I spent 1 hour at the bedside and in direct patient care. Please ensure patient has follow up scheduled with dermatology within 2 weeks of discharge from the hospital. John Hall MD FAAD Vital Signs/I&O Vital Signs Date Time Temp Pulse Resp B/P (MAP) Pulse Ox O2 Delivery O2 Flow Rate FiO2 07/01/19 14:00 96.7 62 15 124/70 (88) 91 06/28/19 13:57 Room Air I&O- Last 24 Hours up to 6 AM 07/01/19 06:00 Intake Total 1210 ml Output Total 200 ml Balance 1010 ml Laboratory Data Labs 24H Laboratory Tests 2 06/30/19 20:35: Bedside Glucose (Misc Panel) 130H 07/01/19 07:37: Bedside Glucose (Misc Panel) 168H 07/01/19 08:49: Nucleated Red Blood Cells % (auto) 0.0, Prothrombin Time 34.7H, Prothromb Time I nternational Ratio 3.45, Anion Gap 7L, Glomerular Filtration Rate > 60.0, Blood Urea Nitrogen 21H, Creatinine 0.74, Sodium Level 138, Potassium Level 3.6, Chloride Level 101, Carbon Dioxide Level 30, Calcium Level 8.1L 07/01/19 16:44: Bedside Glucose (Misc Panel) 272H CBC/BMP Laboratory Tests 07/01/19 08:49 Red Blood Count 3.72 L, Mean Corpuscular Volume 94.6, Mean Corpuscular Hemoglobin 29.8, Mean Corpuscular Hemoglobin Concent 31.5 L, Red Cell Distribu tion Width 13.4, Calcium Level 8.1 L Microbiology Microbiology 06/28/19 Blood Culture - Preliminary, Resulted No Growth after 72 hours. All specime... 06/28/19 Blood Culture - Preliminary, Resulted No Growth after 72 hours. All specime... 06/28/19 MRSA Screen - Final, Complete Allergies Coded Allergies: No Known Allergies (Unverified , 06/15/19) Home Medications Scheduled Calcium Carbonate/Vitamin D3 (Calcium 600-Vit D3 800 Tablet) 1 Tab Tab, 1 TAB PO DAILY, (Reported) Cholecalciferol (Vitamin D3) (Vitamin D3) 5,000 Unit Tab, 5,000 UNIT PO QPM, (Reported) TAKES AT 1500 Citalopram Hydrobromide (Celexa) 20 Mg Tablet, 20 MG PO DAILY, (Reported) Fluticasone/Vilanterol (Breo Ellipta 100-25 Mcg INH) 1 Each Blst.w.dev, 1 PUFF INH DAILY, (Reported) Glipizide (Glipizide) 5 Mg Tablet, 2.5 MG PO DAILY, (Reported) Metformin HCl (Metformin HCl) 500 Mg Tab, 500 MG PO BID, (Reported) AT 0600 AND 1800. Potassium Chloride (Klor-Con M20) 20 Meq Tabcr, 20 MEQ PO DAILY, (Reported) Pravastatin Sodium (Pravachol) 80 Mg Tab, 80 MG PO DAILY, (Reported) Torsemide (Torsemide) 20 Mg Tab, 20 MG PO DAILY, (Reported) TAKES AT 1500 Vitamin B Complex (Vitamin B Complex) 1 Each Tablet, 1 TAB PO DAILY, (Reported) Warfarin Sodium (Warfarin Sodium) 5 Mg Tablet, 5 MG PO 5XW, (Reported) QPM: SUN, TUES, WED, , SAT Warfarin Sodium (Warfarin Sodium) 2.5 Mg Tablet, 2.5 MG PO 2XW, (Reported) QPM: MON, FRI Zinc (Zinc) 50 Mg Tablet, 50 MG PO DAILY, (Reported) Scheduled PRN Acetaminophen (Tylenol Extra Strength) 500 Mg Tablet, 1,000 MG PO TID PRN for PAIN, (Reported) Albuterol Sulfate (Proair Hfa) 108 Mcg/Act Aer, 2 PUFF INH Q4H PRN for SHORTNESS OF BREATH, (Reported) JOHN HALL MD Jul 01, 2019 18:12
[2019-07-01 22:00] VITALS: BP 92/58
[2019-07-01] MEDS: hydrOXYzine 10 MG TAB PO SCH (22:03)
[2019-07-02 06:00] VITALS: BP 109/62
[2019-07-02] MEDS: ACETAMINOPHEN TAB 650MG DOSE (2X325MG) PO PRN (08:36)
[2019-07-02] MEDS: HumaLOG INSULIN (NovoLOG) PER UNIT SC SCH ×4 (08:45→21:00)
[2019-07-02] MEDS: metFORMIN (GLUCOPHAGE) 500 MG TAB PO SCH ×2 (08:47→17:05)
[2019-07-02] MEDS: glipiZIDE *2.5MG* 1/2 TABLET PO SCH (08:47)
[2019-07-02] MEDS: CitaloPRAM (CeleXA) 20 MG TAB PO SCH (08:48)
[2019-07-02] MEDS: hydrOXYzine 10 MG TAB PO SCH ×2 (08:48→21:15)
[2019-07-02] MEDS: PRAVASTATIN 20 MG TAB PO SCH (08:48)
[2019-07-02] MEDS: TRIAMCINOLONE ACET 0.1% OINTMENT 80 GM TOP SCH ×2 (08:49→21:16)
[2019-07-02] MEDS: predniSONE 20 MG TAB PO SCH (08:49)
[2019-07-02] MEDS: raNITIdine SYRUP 150 MG/10 ML UDC PO SCH ×2 (08:49→21:15)
[2019-07-02] MEDS: BREO ELLIPTA (PATIENT'S OWN MED) INH SCH (09:00)
[2019-07-02 09:48] LABS: HEMATOCRIT 34.3 % (36.0-47.0); HEMOGLOBIN 10.9 g/dl (12.0-15.5); MEAN CORPUSCULAR HEMOGLOBIN 30.2 pg (27.0-33.0); MEAN CORPUSCULAR HGB CONC 31.8 g/dl (32.0-36.5); PLATELET COUNT, AUTOMATED 372 10^3/uL (150-450); RED BLOOD COUNT 3.61 10^6/uL (4.00-5.40); WHITE BLOOD COUNT 14.2 10^3/uL (4.0-10.0)
[2019-07-02 09:57] LABS: INR 3.17; PROTHROMBIN TIME 32.5 SECONDS (11.8-14.0)
[2019-07-02 10:07] LABS: BLOOD UREA NITROGEN 30 MG/DL (7-18); CALCIUM LEVEL 8.9 MG/DL (8.8-10.2); CARBON DIOXIDE LEVEL 30 MEQ/L (21-32); CHLORIDE LEVEL 99 MEQ/L (98-107); CREATININE FOR GFR 0.91 MG/DL (0.55-1.30); GLOMERULAR FILTRATION RATE > 60.0 (>32); GLUCOSE, FASTING 178 MG/DL (70-100); POTASSIUM SERUM 3.6 MEQ/L (3.5-5.1); SODIUM LEVEL 138 MEQ/L (136-145)
[2019-07-02 14:00] VITALS: BP 129/77
[2019-07-02 14:29] LABS: ANTI-SACCHAROMYCES CEREV. IgA <20.0 Units (0.0-24.9); ANTI-SACCHAROMYCES CEREV. IgG <20.0 Units (0.0-24.9)
[2019-07-02 15:24] LABS: UPEP INTERPRETATION NO M-SPIKE NOTED; URINE VOLUME RANDOM ML
[2019-07-02] MEDS ORDERED: BUPIVACAINE HCL 0.5% 10 ML VIAL As Ordered ONE (15:52)
[2019-07-02] MEDS ORDERED: ISOVUE-300 61% 50ML VIAL (Q9967) As Ordered ONE (15:52)
[2019-07-02] MEDS ORDERED: LIDOCAINE 2% MDV 20 ML VIAL As Ordered ONE (15:52)
--- NOTE | 2019-07-02 16:40 | IPNPDOC ---
Date Seen The patient was seen on 07/02/19. Progress Note SUBJECTIVE: Patient passed HSE despite persistent and constant pain in the b/l LE with resolving erythema nodusum on b/l upper thighs and shins. 6/10 pain at rest, described as achy and crampy with some improvement with scheduled tylenol. no c/o sob, cough, palpitations, diaphoresis, light- headedness, or dizziness. no fever or chills overnight. s/p biopsy by drug clerk. Vascular to arrange for venogram and thrombectomy of the chronic LLE DVt PHYSICAL EXAMINATION: VITALS: PLS SEE BELOW Generally asleep but arousable .pleasantly confused, but cooperative daughter at bedside, no respiratory distress. not using accessory respiratory muscles. No jugular venous distention. No cyanosis. No icterus. No jaundice. Pupils are round and reactive. Extraocular muscles are intact. Face is symmetric. Speech is fluent. No facial asymmetry. Tongue is midline. Neck is supple. No cervical lymphadenopathy or thyromegaly. Lungs are clear to auscultation. There is no wheezing, rales or rhonchi. Air entry is equal bilaterally. Heart: S1, S2. Sinus tachycardia. Abdomen is soft, nontender, nondistended. Positive bowel sounds times four quadrants. No rebound, guarding or hepatosplenomegaly. Extremities: Patient has erythema on the dorsal aspect of the left lower extremity. There is marked edema left greater than the right, 2+ on the left, 1+ on the right. She has some tenderness on examination dorsalis pedis, posterior tibialis have been noted. skin: multiple 1.5 to 2cm tender erythematous mobile well circumscribed nodules on the b/l shins, hips on lateral aspect, improving with less erythema. LABORATORY DATA, IMAGING STUDIES, MICROBIOLOGY: PLS SEE BELOW ASSESSMENT AND PLAN: This is an 89-year-old female, past medical history of diabetes, paroxysmal atrial fibrillation on warfarin, breast cancer, cerebrovascular accident with residual memory deficit, reflux, dyslipidemia, chronic deep venous thrombosis in the left lower extremity, cellulitis, and pneumonia presents after being discharged for cellulitis and DVT with popliteal cyst with acute onset of pain, swelling and edema. IMPRESSION: b/l LE left>rt chronic venous insufficiency with chronic LLE DVT The patient has chronic thrombus and history of Chase's cyst. She did have a white count without fever, chills, but complains of significant pain, tenderness, swelling, and edema. s/p intravenous vancomycin and ceftriaxone in the emergency room (ER) and s/p intravenous ceftaroline on the floor. ID recommended discontinuation of antibiotics. no infection with normal procalcitonin. Chronic left lower extremity DVT with two other prior admissions for the same complaint. Dr. Sanders vascular surgery recommends thrombectomy. no concerns for compartment syndrome. Family gives consent to proceed as pt is demented. on anticoagulation. pain control with scheduled tylenol. Erythema nodosum b/l LE extremities, improving with less pain and more mobility. pt has passed HSE and stable for dc home. workup pending. Derm and ID consulted. for symptomatic relief, short course of steroids, zantac, atarax, and topical triamcinolone. outpt fu with dermatology 1 wk after hospital discharge. History of paroxysmal atrial fibrillation. On chronic anticoagulation. The patient is resumed on her home dose of warfarin. The patient does have some tachycardia. Pulmonary nodules. Repeat CT during this admission is unchanged as compared to the CT chest in November of this year . I have discussed at length with the family that at her age of 89 and no acute biopsy is not emergent unless the patient decompensates with respiratory distress and concerns for pleural effusion. Thyroid nodules. reviewed thyroid tests Type 2 diabetes. on consistent carbohydrate diet, insulin sliding scale. History of breast cancer with lymph node dissection, chemotherapy in the past. The patient has pulmonary nodules concerning for metastatic disease. would not be a candidate for chemotherapy. Reflux disease. Continue on proton pump inhibitor (PPI). Dyslipidemia. Continue on home medications. History of CVA secondary to paroxysmal atrial fibrillation with residual memory deficit complicating her care. She is continued on anticoagulation. Health care proxy is available for medical decision-making at this time. Code status. DO NOT RESUSCITATE. Obesity. Body mass index (BMI) of 36.4 complicating her care. disposition: passed HSE, and may dc home if ok w vascular surgery. if thrombectomy to be performed, will need to stay, but if can be done as outpt, may dc home. VS, I&O, 24H, Fishbone Vital Signs/I&O Vital Signs Date Time Temp Pulse Resp B/P (MAP) Pulse Ox O2 Delivery O2 Flow Rate FiO2 07/02/19 16:11 108 18 91 07/02/19 15:59 3 07/02/19 15:03 98 07/02/19 14:00 129/77 (94) 06/28/19 13:57 Room Air I&O- Last 24 Hours up to 6 AM0 07/02/19 06:00 Intake Total 720 ml Output Total 0 ml Balance 720 ml Laboratory Data 24H LABS Laboratory Tests 2 07/01/19 16:44: Bedside Glucose (Misc Panel) 272H 07/01/19 20:35: Bedside Glucose (Misc Panel) 314H 07/02/19 06:14: Bedside Glucose (Misc Panel) 144H 07/02/19 09:33: Nucleated Red Blood Cells % (auto) 0.0, Prothrombin Time 32.5H, Prothromb Time International Ratio 3.17, Anion Gap 9, Glomerular Filtration Rate > 60.0, Blood Urea Nitrogen 30H, Creatinine 0.91, Sodium Level 138, Potassium Level 3.6, Chloride Level 99, Carbon Dioxide Level 30, Calcium Level 8.9 07/02/19 12:10: Bedside Glucose (Misc Panel) 126H CBC/BMP Laboratory Tests 07/02/19 09:33 Red Blood Count 3.61 L, Mean Corpuscular Volume 95.0, Mean Corpuscular Hemoglobin 30.2, Mean Corpuscular Hemoglobin Concent 31.8 L, Red Cell Distribution Width 13.3, Calcium Level 8.9 Microbiology Microbiology 06/28/19 Blood Culture - Preliminary, Resulted No Growth after 72 hours. All specime... 06/28/19 Blood Culture - Preliminary, Resulted No Growth after 72 hours. All specime... 06/28/19 MRSA Screen - Final, Complete NATI RAWLS MD Jul 02, 2019 16:40
[2019-07-02] MEDS: WARFARIN SOD 5 MG TAB PO SCH (17:00)
[2019-07-02] MEDS: TORSEMIDE 20 MG TAB PO SCH (17:03)
[2019-07-02 22:00] VITALS: BP 132/87
[2019-07-03] MEDS: ACETAMINOPHEN TAB 650MG DOSE (2X325MG) PO PRN (04:01)
[2019-07-03 06:00] VITALS: BP 111/68
[2019-07-03] MEDS: BREO ELLIPTA (PATIENT'S OWN MED) INH SCH (07:45)
[2019-07-03] MEDS: HumaLOG INSULIN (NovoLOG) PER UNIT SC SCH ×4 (08:33→20:51)
[2019-07-03] MEDS: glipiZIDE *2.5MG* 1/2 TABLET PO SCH (08:34)
[2019-07-03] MEDS: raNITIdine SYRUP 150 MG/10 ML UDC PO SCH ×2 (08:34→21:10)
[2019-07-03] MEDS: hydrOXYzine 10 MG TAB PO SCH ×2 (08:35→21:11)
[2019-07-03] MEDS: CitaloPRAM (CeleXA) 20 MG TAB PO SCH (08:35)
[2019-07-03] MEDS: predniSONE 20 MG TAB PO SCH (08:36)
[2019-07-03] MEDS: metFORMIN (GLUCOPHAGE) 500 MG TAB PO SCH ×2 (08:36→18:10)
[2019-07-03] MEDS: TRIAMCINOLONE ACET 0.1% OINTMENT 80 GM TOP SCH ×2 (08:37→21:11)
[2019-07-03] MEDS: ACETAMINOPHEN 500 MG TAB PO PRN (08:39)
[2019-07-03] MEDS: PRAVASTATIN 20 MG TAB PO SCH (08:44)
[2019-07-03 10:51] LABS: HEMATOCRIT 32.8 % (36.0-47.0); HEMOGLOBIN 10.4 g/dl (12.0-15.5); MEAN CORPUSCULAR HEMOGLOBIN 30.4 pg (27.0-33.0); MEAN CORPUSCULAR HGB CONC 31.7 g/dl (32.0-36.5); MEAN CORPUSCULAR VOLUME 95.9 fl (80.0-96.0); PLATELET COUNT, AUTOMATED 402 10^3/uL (150-450); RED BLOOD COUNT 3.42 10^6/uL (4.00-5.40); WHITE BLOOD COUNT 15.6 10^3/uL (4.0-10.0)
[2019-07-03 11:03] LABS: INR 2.48; PROTHROMBIN TIME 26.7 SECONDS (11.8-14.0)
[2019-07-03 11:25] LABS: BLOOD UREA NITROGEN 28 MG/DL (7-18); CALCIUM LEVEL 8.8 MG/DL (8.8-10.2); CARBON DIOXIDE LEVEL 31 MEQ/L (21-32); CHLORIDE LEVEL 100 MEQ/L (98-107); CREATININE FOR GFR 0.86 MG/DL (0.55-1.30); GLOMERULAR FILTRATION RATE > 60.0 (>32); GLUCOSE, FASTING 137 MG/DL (70-100); POTASSIUM SERUM 4.3 MEQ/L (3.5-5.1); SODIUM LEVEL 136 MEQ/L (136-145)
[2019-07-03 14:00] VITALS: BP 97/64
[2019-07-03] MEDS: TORSEMIDE 20 MG TAB PO SCH (14:19)
--- NOTE | 2019-07-03 18:06 | IPNPDOC ---
Subjective Date Seen The patient was seen on 07/03/19. Subjective Chief Complaint/HPI Patient and daughter endorse pain is improving today. Patient has no acute complaints at this time. Per daughter they discussed options extensively with Dr. Sanders who recommends no thrombectomy at this time and outpatient follow up for possible LE vascular stenting although it may not be necessary. Daughter and patient appear satisfied with this. I started to discuss discharge planning however daughter voices concerns about home environment and patient/family services was requested. Constitutional: Denies: Chills, Fever Eyes: Denies: Pain ENT: Denies: Head Aches Skin: Reports: Rash Pulmonary: Denies: Dyspnea, Cough Cardiovascular: Denies: Chest Pain, Palpitations Gastrointestinal: Denies: Nausea, Abdominal Pain Genitourinary: Denies: Dysuria Hematologic: Denies: Bruising Musculoskeletal: Denies: Neck Pain Neurological: Denies: Weakness, Numbness Psych: Reports: Mood Normal Objective Physical Examination General Exam: Positive: Alert, Cooperative, No Acute Distress Eye Exam: Positive: Conjunctiva & lids normal, EOMI ENT Exam: Positive: Atraumatic, Mucous membr. moist/pink Neck Exam: Positive: Supple; Negative: JVD Chest Exam: Positive: Clear to auscultation, Normal air movement Heart Exam: Positive: Rate Normal, Regular Rhythm, Normal S1, Normal S2 Abdomen Exam: Positive: Normal bowel sounds, Soft; Negative: Tenderness Extremity Exam: Positive: Edema; Negative: Clubbing, Cyanosis Skin Exam: Positive: Rash, Lesion, Pruritus Neuro Exam: Positive: Normal Speech, Sensation Intact Psych Exam: Positive: Mood NL Assessment /Plan Assessment 89 y/o F with DM, Paroxysmal A. fib on warfarin, breast ca, CVA with residual deficits, GERD, HLD, chronic LLE DVT presents after being discharged with acute onset pain in LLE swelling and edema, initially concern for recurrent cellulitis/dvt, now being treated for erythema nodosum and likely vascular insufficiency. Plan/VTE VTE Prophylaxis Ordered?: No VTE Exclusion Pharmacological: Other Plan Chronic venous insufficiency with chronic LLE DVT -L > R with chronic LLE DVT -s/p IV Vanc/Ceftriaxone and Ceftaroline. ID consulted and Antibiotics stopped and patient remains stable off of antibiotics. Likely erythema nodosum -Dr. Sanders, vascular surgery, has evaluated patient his recs have been conveyed to patient and daughter however we are pending written consult. No planned thrombectomy at this time, likely needs to follow up as outpatient with Vascular surgery. -INR 2.48 today, will continue current warfarin dosing. -Pain control ordered Erythema nodosum -improving -Dermatology consulted -Continue Prednisone 20mg x5 days, zantac, atarax and topical triamcinolone -Derm follow up 1 week after discharge Paroxysmal A. fib -Continue Coumadin. Not noted to be on any ke carri as outpatient, currently rate controlled, will monitor. If becomes tachycardic will start low dose beta-carri. Pulmonary nodules. Repeat CT during this admission is unchanged as compared to the CT chest in November of this year. At her age of 89 and no acute biopsy is not emergent unless the patient decompensates with respiratory distress and concerns for pleural effusion. Family aware. DM type 2 -continue metformin 500mg BID. Lispro sliding scale. Glipizide 2.5mg daily. -Monitor finger sticks AC and QHS History of breast cancer with lymph node dissection, chemotherapy in the past. The patient has pulmonary nodules concerning for metastatic disease. Would not be a candidate for chemotherapy. Outpatient follow up. GERD: Continue PPI. Dyslipidemia. Continue on home medications. History of CVA secondary to paroxysmal atrial fibrillation with residual memory deficit complicating her care. She is continued on anticoagulation. Health care proxy is available for medical decision-making at this time. Code status. DO NOT RESUSCITATE. Obesity. Body mass index (BMI) of 36.4 complicating her care. Disposition: passed HSE, likely able to be discharged home although family requesting increase home services, PFS aware. Vascular surgery follow up as outpatient as it does not appear and intervention is planned at this time. VS, I&O, 24H, Fishbone Vital Signs/I&O Vital Signs Date Time Temp Pulse Resp B/P (MAP) Pulse Ox O2 Delivery O2 Flow Rate FiO2 07/03/19 14:00 98.0 63 18 97/64 (75) 91 07/02/19 15:59 3 06/28/19 13:57 Room Air I&O- Last 24 Hours up to 6 AM 07/03/19 06:00 Intake Total 780 ml Output Total 450 ml Balance 330 ml Laboratory Data 24H LABS Laboratory Tests 2 07/03/19 06:20: Bedside Glucose (Misc Panel) 141H 07/03/19 10:39: Nucleated Red Blood Cells % (auto) 0.0, Prothrombin Time 26.7H, Prothromb Time International Ratio 2.48, Anion Gap 5L, Glomerular Filtration Rate > 60.0, Blood Urea Nitrogen 28H, Creatinine 0.86, Sodium Level 136, Potassium Level 4.3, Chloride Level 100, Carbon Dioxide Level 31, Calcium Level 8.8 07/03/19 11:40: Bedside Glucose (Misc Panel) 111H 07/03/19 16:42: Bedside Glucose (Misc Panel) 265H CBC/BMP Laboratory Tests 07/03/19 10:39 Red Blood Count 3.42 L, Mean Corpuscular Volume 95.9, Mean Corpuscular Hemoglobin 30.4, Mean Corpuscular Hemoglobin Concent 31.7 L, Red Cell Distribution Width 13.4, Calcium Level 8.8 Microbiology Microbiology 06/28/19 Blood Culture - Final, Complete NO GROWTH AFTER 5 DAYS 06/28/19 Blood Culture - Final, Complete NO GROWTH AFTER 5 DAYS 06/28/19 MRSA Screen - Final, Complete EARNESTINE SALDAÑA MD Jul 03, 2019 18:06
[2019-07-03] MEDS: WARFARIN SOD 2.5 MG TAB PO SCH (18:10)
[2019-07-03 22:00] VITALS: BP 126/71
[2019-07-04 06:00] VITALS: BP 122/68
[2019-07-04 06:24] LABS: HEMATOCRIT 33.5 % (36.0-47.0); HEMOGLOBIN 10.1 g/dl (12.0-15.5); MEAN CORPUSCULAR HEMOGLOBIN 29.1 pg (27.0-33.0); MEAN CORPUSCULAR HGB CONC 30.1 g/dl (32.0-36.5); MEAN CORPUSCULAR VOLUME 96.5 fl (80.0-96.0); PLATELET COUNT, AUTOMATED 432 10^3/uL (150-450); RED BLOOD COUNT 3.47 10^6/uL (4.00-5.40); WHITE BLOOD COUNT 16.6 10^3/uL (4.0-10.0)
[2019-07-04 06:33] LABS: INR 2.33; PROTHROMBIN TIME 25.4 SECONDS (11.8-14.0)
[2019-07-04 06:51] LABS: ALBUMIN 2.3 GM/DL (3.2-5.2); ALT/SGPT 99 U/L (12-78); BILIRUBIN,TOTAL 0.3 MG/DL (0.2-1.0); BLOOD UREA NITROGEN 25 MG/DL (7-18); CALCIUM LEVEL 8.8 MG/DL (8.8-10.2); CARBON DIOXIDE LEVEL 36 MEQ/L (21-32); CHLORIDE LEVEL 99 MEQ/L (98-107); CREATININE FOR GFR 0.86 MG/DL (0.55-1.30); GLOMERULAR FILTRATION RATE > 60.0 (>32); GLUCOSE, FASTING 110 MG/DL (70-100); POTASSIUM SERUM 3.8 MEQ/L (3.5-5.1); SODIUM LEVEL 138 MEQ/L (136-145); TOTAL PROTEIN 6.8 GM/DL (6.4-8.2)
[2019-07-04] MEDS: BREO ELLIPTA (PATIENT'S OWN MED) INH SCH (07:36)
[2019-07-04] MEDS: predniSONE 20 MG TAB PO SCH (08:20)
[2019-07-04] MEDS: hydrOXYzine 10 MG TAB PO SCH (08:20)
[2019-07-04] MEDS: raNITIdine SYRUP 150 MG/10 ML UDC PO SCH (08:20)
[2019-07-04] MEDS: glipiZIDE *2.5MG* 1/2 TABLET PO SCH (08:20)
[2019-07-04] MEDS: CitaloPRAM (CeleXA) 20 MG TAB PO SCH (08:20)
[2019-07-04] MEDS: HumaLOG INSULIN (NovoLOG) PER UNIT SC SCH (08:20)
[2019-07-04] MEDS: PRAVASTATIN 20 MG TAB PO SCH (08:21)
[2019-07-04] MEDS: metFORMIN (GLUCOPHAGE) 500 MG TAB PO SCH (08:21)
[2019-07-04] MEDS: TRIAMCINOLONE ACET 0.1% OINTMENT 80 GM TOP SCH (08:22)
[2019-07-04] MEDS: ACETAMINOPHEN 500 MG TAB PO PRN (08:28)
[2019-07-04] MEDS ORDERED: PRED20TA PO (08:33)
[2019-07-04] MEDS ORDERED: BACI50OI TOP (08:33)
[2019-07-04] MEDS ORDERED: BACITRACIN OINT 30GM TOP SCH (09:00)
--- NOTE | 2019-07-04 14:50 | DSES ---
DATE OF ADMISSION: 06/28/2019 DATE OF DISCHARGE: 07/04/2019 Date of dictation: 07/04/2019 PRIMARY CARE PROVIDER: Dr. Mert Mercado PRINCIPAL DIAGNOSIS: 1. Probable erythema nodosum (skin biopsy pending). 2. Chronic venous insufficiency left lower extremity with a history of chronic deep venous thrombosis (DVT). 3. Paroxysmal atrial fibrillation. 4. Stable pulmonary nodules. 5. Type 2 diabetes. 6. History of breast cancer. 7. Gastroesophageal reflux disease (GERD). 8. First and small second degree mccloud upper chest after a coffee spill on day of discharge. HISTORY: Natty Dent was admitted with erythema of her left lower extremity. She has history of DVT there. She was admitted for presumed cellulitis. HOSPITAL COURSE: She was admitted to medical service. She was treated with IV antibiotics, failed to respond to this. She was seen in consultation by vascular surgery and noted that the deep veins showed normal compression, normal Doppler flow. Nonocclusive thrombus in the popliteal vein. Impression was chronic fibrin band in common femoral vein. Small area of chronic thrombus. Venography was recommended. I think this was done, but the dictation is not back yet on it. In any case it was ordered and eventually performed. Patient seen by Dr. Hi. He did a skin biopsy. Thought these lesions were consistent with erythema nodosum and started her on prednisone and planned outpatient followup. Yesterday she was cleared by physical therapy (PT), but daughter wanted [facility] ([facility]FS) to set up some home care which was done. She was cleared for discharge today. She spilled coffee on herself this morning at breakfast. She has first degree burn of her upper chest with small area of second degree burn with a denuded bullous lesion. She still feels able for discharge this morning. On day of discharge blood pressure is 122/68, pulse 73, respiratory rate 20, 90% saturation. GENERAL APPEARANCE: She is resting comfortably. Visiting with her daughter. LUNGS: Clear. HEART: Regular rhythm. ABDOMEN: Soft, nontender. EXTREMITIES: She has edema of both lower extremities, much greater on the left than the right. Tender subcutaneous nodules right lower leg, left lower leg, left lateral thigh. LABS: Skin biopsy results pending. White count 15.6 (persisting leukocytosis this admission), hemoglobin 10.1, platelets 432. Sodium 138, potassium 3.8, BUN 25, creatinine 0.8. Glucose 100. AST 1, ALT 99. She had an SPEP done that did not show any M-spike. HIV was negative. Her INRs over the last 5 days have been 2.47 - 3.4 - 3.1 - 2.4 - 2.33 today. She had an extensive rheumatological workup which is pending. She had a TB gold that was negative. Inflammatory bowel panel was negative. DISPOSITION: She is discharged home. Followup with Dr. Hi, dermatology clinic and Dr. Mercado in the office in a week. Biopsy results are pending. She has passed her home safety evaluation and feels ready for discharge. She does not feel the superficial burn that occurred today should prevent her from discharge. She is on a no added salt diet. Activity as tolerated. Her medications will continue to be Tylenol as needed, albuterol 2 puffs every 4 hours as needed, calcium with vitamin D. Vitamin D 5000 units daily. Celexa 20 mg daily. Breo Ellipta one inhalation daily. Glipizide 2.5 mg daily. Metformin 500 mg twice a day. Potassium chloride 20 mEq daily. Pravastatin 80 mg daily. Torsemide 20 mg daily. Warfarin 2.5 mg Saturday, Saturday, 5 mg Saturday, Saturday, , Saturday and Saturday. She also takes some zinc. New prescriptions for prednisone 20 mg daily for 4 more days and bacitracin ointment to the burn twice daily until recheck. She has a number of outstanding labs that need to be checked at hospital followup.
--- NOTE | 2019-07-07 16:21 | REPIR ---
DATE OF PROCEDURE: 07/02/2019 ATTENDING SURGEON: Dr. Margo Sanders ASSISTANTS: Laura Nichole and Andrea Brody. PREOPERATIVE DIAGNOSES: Left lower extremity swelling, left lower extremity cellulitis, left lower extremity deep venous thrombosis, right lower extremity cellulitis, bilateral lower extremity venous valvular insufficiency, left lower extremity post thrombotic syndrome. POSTOPERATIVE DIAGNOSES: Left lower extremity swelling, left lower extremity cellulitis, left lower extremity deep venous thrombosis, right lower extremity cellulitis, bilateral lower extremity venous valvular insufficiency, left lower extremity post thrombotic syndrome. PROCEDURE: Ultrasound-guided left lesser saphenous vein cannulation, left lower extremity venogram. INDICATION: The patient is an 89-year-old female with left lower extremity swelling and a history of DVT with ultrasound showing a possible stenosis in the left common femoral vein. The patient will undergo a venogram with possible angioplasty stent and/or atherectomy. ANESTHESIA: Local with 10 mL of 2% lidocaine mixed with 0.5% Marcaine. FLUOROSCOPIC TIME: 0.2 minutes. CONTRAST: 20 mL. COMPLICATIONS: None. DRAINS: None. SPECIMENS: None IMPLANTS: None. PROCEDURE: The patient was taken to the angiography suite, placed supine on the angiography room table, and then prepped and draped in a standard surgical fashion. The left lesser saphenous vein was cannulated using ultrasound guidance. A catheter was placed and a venogram was performed. This showed acute thrombosis. There was some mild narrowing of the external iliac vein on the left. Otherwise, the vessels were widely patent. Catheters and wires were removed. The sheath was removed and manual compression applied at the puncture site for hemostasis. Dressings were then applied. The patient tolerated the procedure well. All instrument, sponge and needle counts were correct at the end the case. There were no complications. Dr. Sanders was present for and directed the entire case. The patient was transferred to the holding area and subsequently to the floor in stable condition.
[2019-07-08 15:18] LABS: ANTI DS-DNA AB <1:10 titer (.); ANTINUCLEAR ANTIBODIES DIRECT Negative (Negative); CYCLIC CITRULLINATED PEPTIDE 2 units (0-19); RNP ANTIBODIES <0.2 AI (0.0-0.9); SMITH ANTIBODIES <0.2 AI (0.0-0.9)
== END 2019-07-04 10:22 | disposition home health service (06) | DRG 982 ==
LOC: EDBD 10:52 → M ED 10:52 → M ED INP 13:39 → M MSPAV 16:15
PROVIDERS: ADMIT General Practice; ATTEND Family Medicine
PROC: 067 Lower Veins, Dilation (ICD-10-PCS; principal; 2019-07-02 15:17)
DX: L52 Erythema nodosum (principal); I82.532 Chronic embolism and thrombosis of left popliteal vein; L30.9 Dermatitis, unspecified; I87.2 Venous insufficiency (chronic) (peripheral); T21.11XA Burn of first degree of chest wall, initial encounter; T21.21XA Burn of second degree of chest wall, initial encounter; I48.0 Paroxysmal atrial fibrillation; K21.9 Gastro-esophageal reflux disease without esophagitis; E11.9 Type 2 diabetes mellitus without complications; R91.8 Other nonspecific abnormal finding of lung field; Z79.01 Long term (current) use of anticoagulants; Z85.3 Personal history of malignant neoplasm of breast; I69.998 Other sequelae following unspecified cerebrovascular disease; E78.5 Hyperlipidemia, unspecified; Z79.899 Other long term (current) drug therapy; E04.1 Nontoxic single thyroid nodule; E66.9 Obesity, unspecified; Z68.36 Body mass index [BMI] 36.0-36.9, adult; Z66 Do not resuscitate; Z96.651 Presence of right artificial knee joint; X12.XXXA Contact with other hot fluids, initial encounter; Y92.230 Patient room in hospital as the place of occurrence of the external cause

== ENCOUNTER → 2019-07-17 | Outpatient (CLI) | payer MEDICARE ==
[~2019-07-17] MED LIST changes: +ACET-897 PO; +BACI50OI TOP; +WARF-18 PO
[2019-07-17 16:39] LABS: HEMATOCRIT 35.9 % (36.0-47.0); HEMOGLOBIN 10.8 g/dl (12.0-15.5); MEAN CORPUSCULAR HEMOGLOBIN 28.6 pg (27.0-33.0); MEAN CORPUSCULAR HGB CONC 30.1 g/dl (32.0-36.5); PLATELET COUNT, AUTOMATED 543 10^3/uL (150-450); RED BLOOD COUNT 3.78 10^6/uL (4.00-5.40); WHITE BLOOD COUNT 18.3 10^3/uL (4.0-10.0)
[2019-07-17 16:53] LABS: ALBUMIN 2.2 GM/DL (3.2-5.2); BILIRUBIN,TOTAL 0.3 MG/DL (0.2-1.0); CALCIUM LEVEL 8.7 MG/DL (8.8-10.2); CREATININE FOR GFR 1.01 MG/DL (0.55-1.30); GLOMERULAR FILTRATION RATE 55.2 (>32); POTASSIUM SERUM 4.4 MEQ/L (3.5-5.1); TOTAL PROTEIN 6.6 GM/DL (6.4-8.2)
[2019-07-17 19:19] LABS: HEMOGLOBIN A1c 7.6 %
== END ==
LOC: M WUC 11:56
PROVIDERS: ATTEND Internal Medicine
DX: I50.30 Unspecified diastolic (congestive) heart failure (principal); E11.9 Type 2 diabetes mellitus without complications; L52 Erythema nodosum

== ENCOUNTER → 2019-07-18 | Outpatient (REF) | payer MEDICARE ==
[2019-07-18 18:41] LABS: MAU/CREAT RATIO 7.5 MCG/MG (0.0-30.0)
== END ==
LOC: M SFHCPLAZ 09:02
PROVIDERS: ATTEND Internal Medicine
DX: E11.9 Type 2 diabetes mellitus without complications (principal); I50.30 Unspecified diastolic (congestive) heart failure; L52 Erythema nodosum

== ENCOUNTER → 2019-07-20 | Outpatient (REF) | payer MEDICARE ==
[2019-07-20 18:24] LABS: INR 6.07; PROTHROMBIN TIME 54.6 SECONDS (11.8-14.0)
== END ==
LOC: M SFHCPLAZ 13:42
PROVIDERS: ATTEND Internal Medicine
DX: Z79.01 Long term (current) use of anticoagulants (principal)
CPT/HCPCS: 36415; 85610; G0463

== ENCOUNTER → 2019-07-27 | Outpatient (CLI) | payer MEDICARE ==
[2019-07-27 10:17] LABS: BASO % 0.1 % (0.0-1.0); EOS # 0.3 10^3/uL (0.0-0.5); EOS % 1.8 % (0.0-3.0); HEMATOCRIT 34.3 % (36.0-47.0); HEMOGLOBIN 10.5 g/dl (12.0-15.5); LYMPH # 1.6 10^3/uL (1.5-5.0); MEAN CORPUSCULAR HEMOGLOBIN 28.8 pg (27.0-33.0); MEAN CORPUSCULAR HGB CONC 30.6 g/dl (32.0-36.5); MONO # 1.3 10^3/uL (0.0-0.8); MONO % 8.2 % (0.0-5.0); NEUTROPHILS # 12.5 10^3/uL (1.5-8.5); NEUTROPHILS % 79.3 % (36.0-66.0); PLATELET COUNT, AUTOMATED 428 10^3/uL (150-450); RED BLOOD COUNT 3.65 10^6/uL (4.00-5.40); WHITE BLOOD COUNT 15.7 10^3/uL (4.0-10.0)
[2019-07-27 10:44] LABS: CALCIUM LEVEL 8.1 MG/DL (8.8-10.2); CREATININE FOR GFR 0.95 MG/DL (0.55-1.30); GLOMERULAR FILTRATION RATE 59.2 (>32); MAGNESIUM LEVEL 1.4 MG/DL (1.8-2.4); POTASSIUM SERUM 3.6 MEQ/L (3.5-5.1)
== END ==
LOC: M LAB 09:38
PROVIDERS: ATTEND Internal Medicine
DX: I50.30 Unspecified diastolic (congestive) heart failure (principal); D72.828 Other elevated white blood cell count
CPT/HCPCS: 36415; 80048; 83735; 85025; 85610; G0463

== ENCOUNTER → 2019-08-10 | Outpatient (REF) | payer MEDICARE ==
[2019-08-10 18:21] LABS: CALCIUM LEVEL 9.4 MG/DL (8.8-10.2); CREATININE FOR GFR 0.98 MG/DL (0.55-1.30); GLOMERULAR FILTRATION RATE 57.2 (>32); MAGNESIUM LEVEL 1.7 MG/DL (1.8-2.4); POTASSIUM SERUM 4.1 MEQ/L (3.5-5.1)
[2019-08-10 18:33] LABS: BASO % 0.2 % (0.0-1.0); EOS # 0.2 10^3/uL (0.0-0.5); EOS % 1.8 % (0.0-3.0); HEMATOCRIT 35.1 % (36.0-47.0); HEMOGLOBIN 10.5 g/dl (12.0-15.5); LYMPH # 1.7 10^3/uL (1.5-5.0); LYMPH % 13.3 % (24.0-44.0); MEAN CORPUSCULAR HGB CONC 29.9 g/dl (32.0-36.5); MONO # 1.4 10^3/uL (0.0-0.8); MONO % 11.1 % (0.0-5.0); NEUTROPHILS # 9.4 10^3/uL (1.5-8.5); PLATELET COUNT, AUTOMATED 517 10^3/uL (150-450); RED BLOOD COUNT 3.62 10^6/uL (4.00-5.40); WHITE BLOOD COUNT 12.8 10^3/uL (4.0-10.0)
== END ==
LOC: M SFHCPLAZ 14:46
PROVIDERS: ATTEND Internal Medicine
DX: D72.828 Other elevated white blood cell count (principal); I50.30 Unspecified diastolic (congestive) heart failure

== ENCOUNTER → 2019-08-24 | Outpatient (REF) | payer MEDICARE ==
[~2019-08-24] MED LIST changes: -DOXY100T16 PO; +DOXY100T27 PO; -GLIM1TAB PO; +GLIM1TAB2 PO; +OMEP-358 PO; -OMEP20TA PO
[2019-08-24 19:26] LABS: BASO % 0.1 % (0.0-1.0); EOS # 0.1 10^3/uL (0.0-0.5); EOS % 0.4 % (0.0-3.0); HEMATOCRIT 40.8 % (36.0-47.0); HEMOGLOBIN 12.2 g/dl (12.0-15.5); LYMPH # 1.5 10^3/uL (1.5-5.0); LYMPH % 10.8 % (24.0-44.0); MEAN CORPUSCULAR HEMOGLOBIN 28.9 pg (27.0-33.0); MEAN CORPUSCULAR HGB CONC 29.9 g/dl (32.0-36.5); MEAN CORPUSCULAR VOLUME 96.7 fl (80.0-96.0); MONO # 1.2 10^3/uL (0.0-0.8); MONO % 8.3 % (0.0-5.0); NEUTROPHILS # 11.1 10^3/uL (1.5-8.5); PLATELET COUNT, AUTOMATED 423 10^3/uL (150-450); RED BLOOD COUNT 4.22 10^6/uL (4.00-5.40); WHITE BLOOD COUNT 13.9 10^3/uL (4.0-10.0)
[2019-08-24 19:37] LABS: ALBUMIN 2.8 GM/DL (3.2-5.2); BILIRUBIN,TOTAL 0.3 MG/DL (0.2-1.0); CALCIUM LEVEL 10.4 MG/DL (8.8-10.2); CREATININE FOR GFR 1.4 MG/DL (0.55-1.30); GLOMERULAR FILTRATION RATE 37.9 (>32); MAGNESIUM LEVEL 1.7 MG/DL (1.8-2.4); POTASSIUM SERUM 4.1 MEQ/L (3.5-5.1)
== END ==
LOC: M SFHCPLAZ 14:39
PROVIDERS: ATTEND Internal Medicine
DX: I50.30 Unspecified diastolic (congestive) heart failure (principal); D72.828 Other elevated white blood cell count
CPT/HCPCS: 36415; 80053; 83735; 85025; G0463

== ENCOUNTER 2019-11-22 03:15 | Observation (INO) | payer MEDICARE ==
[~2019-11-22] VITALS: Ht 160 cm; Wt 84.1 kg
[~2019-11-22 03:15] MED LIST changes: -GLIM1TAB2 PO; +GLIM1TAB4 PO
[2019-11-22 03:48] LABS: BASO % 0.2 % (0.0-1.0); EOS # 0.1 10^3/uL (0.0-0.5); EOS % 1.2 % (0.0-3.0); HEMATOCRIT 42.6 % (36.0-47.0); HEMOGLOBIN 12.4 g/dl (12.0-15.5); LYMPH # 2.1 10^3/uL (1.5-5.0); LYMPH % 21.6 % (24.0-44.0); MEAN CORPUSCULAR HGB CONC 29.1 g/dl (32.0-36.5); MEAN CORPUSCULAR VOLUME 99.8 fl (80.0-96.0); MONO # 0.6 10^3/uL (0.0-0.8); MONO % 6.3 % (0.0-5.0); NEUTROPHILS # 6.8 10^3/uL (1.5-8.5); NEUTROPHILS % 70.1 % (36.0-66.0); PLATELET COUNT, AUTOMATED 268 10^3/uL (150-450); RED BLOOD COUNT 4.27 10^6/uL (4.00-5.40); WHITE BLOOD COUNT 9.8 10^3/uL (4.0-10.0)
[2019-11-22 03:59] LABS: INR 1.26; PARTIAL THROMBOPLASTIN TIME 22.5 SECONDS (25.0-38.4); PROTHROMBIN TIME 15.5 SECONDS (11.8-14.0)
--- NOTE | 2019-11-22 03:59 | REPVR ---
PROCEDURE INFORMATION: Exam: CT Head Without Contrast Exam date and time: 11/22/2019 3:44 AM Age: 89 years old Clinical indication: Altered mental status/memory loss; Other: Unresponsive TECHNIQUE: Imaging protocol: Computed tomography of the head without contrast. Radiation optimization: All CT scans at this facility use at least one of these dose optimization techniques: automated exposure control; mA and/or kV adjustment per patient size (includes targeted exams where dose is matched to clinical indication); or iterative reconstruction. Other technique: STROKE PROTOCOL was implemented. COMPARISON: CT Head without contrast 2017-03-06 03:38 FINDINGS: Brain: Left basal ganglia moderate chronic infarct. Diffuse moderate cerebral age related volume loss. Moderate patchy low attenuation in the white matter compatible with moderate chronic small vessel ischemic disease. No midline shift, mass, fluid collection, or evidence of hemorrhage. Ventricles: Left lateral ventricle ex vacuo dilatation from volume loss. Ventricular enlargement proportional to volume loss. Bones/joints: Unremarkable. No acute fracture. Sinuses: Visualized sinuses are unremarkable. No fluid levels. Mastoid air cells: Visualized mastoid air cells are well aerated. Soft tissues: Unremarkable. IMPRESSION: Moderate involutional changes, no acute intracranial abnormality. ASSESSMENT: ASPECTS ([place] Stroke Program Early CT Score) is 10. Electronically signed by: Nicholas Albarado On 11/22/2019 03:59:16 AM
[2019-11-22] MEDS ORDERED: NS 1,000 ML IV ONE (04:00)
[2019-11-22 04:16] LABS: OSMOLALITY SERUM 310 MOSM/KG (280-301)
[2019-11-22 04:18] LABS: ACETAMINOPHEN LEVEL < 2.0 UG/ML (10.0-30.0); ALBUMIN 3.2 GM/DL (3.2-5.2); ALT/SGPT 48 U/L (12-78); BILIRUBIN,DIRECT 0.1 MG/DL (0.0-0.2); BILIRUBIN,TOTAL 0.3 MG/DL (0.2-1.0); BLOOD UREA NITROGEN 29 MG/DL (7-18); CALCIUM LEVEL 8.3 MG/DL (8.8-10.2); CARBON DIOXIDE LEVEL 28 MEQ/L (21-32); CHLORIDE LEVEL 95 MEQ/L (98-107); CK-MB VALUE MASS 1.8 NG/ML (<3.6); CPK CREATINE PHOSPHOKINASE 90 U/L (26-192); CREATININE FOR GFR 1.28 MG/DL (0.55-1.30); ETHYL ALCOHOL (ETHANOL) 0.003 % (0.000-0.010); GLUCOSE, FASTING 346 MG/DL (70-100); POTASSIUM SERUM 3.9 MEQ/L (3.5-5.1); SALICYLATE LEVEL < 1.7 MG/DL (5.0-30.0); SODIUM LEVEL 136 MEQ/L (136-145); TOTAL PROTEIN 7.3 GM/DL (6.4-8.2); TROPONIN I 0.04 NG/ML (< 0.10)
[2019-11-22 04:45] LABS: AMPHETAMINES LEVEL URINE NEGATIVE (NEGATIVE); BARBITURATES URINE NEGATIVE (NEGATIVE); BENZODIAZEPINES URINE NEGATIVE (NEGATIVE); CANNABINOIDS URINE NEGATIVE (NEGATIVE); COCAINE METABOLITE URINE NEGATIVE (NEGATIVE); METHADONE URINE NEGATIVE (NEGATIVE); OPIATES URINE NEGATIVE (NEGATIVE); PHENCYCLIDINE URINE NEGATIVE (NEGATIVE)
[2019-11-22] MEDS ORDERED: SCOPOLAMINE 1MG TRANSDERMAL PATCH TOP PRN (04:45)
[2019-11-22] MEDS ORDERED: LORazepam 2 MG/ML VIAL (J2060) IV PRN (04:45)
[2019-11-22] MEDS ORDERED: PRAV80TA2 PO (04:59)
[2019-11-22] MEDS ORDERED: TORS100T PO (04:59)
[2019-11-22] MEDS ORDERED: WARF-18 PO (04:59)
[2019-11-22] MEDS ORDERED: VITA500079 PO (04:59)
[2019-11-22] MEDS ORDERED: WARF-23 PO (04:59)
[2019-11-22] MEDS ORDERED: VITATAB73 PO (05:00)
[2019-11-22] MEDS ORDERED: AMMO12CR7 TOP (05:02)
[2019-11-22] MEDS ORDERED: MAGN400T2 PO (05:02)
--- NOTE | 2019-11-22 05:37 | HPEPDOC ---
General Date of Admission Nov 22, 2019 at 03:16 Date of Service: Nov 22, 2019 Chief Complaint The patient is a 89-year-old female Who presented to the emergency room after she was found down at home. History of Present Illness Patient is an 89-year-old female with a PMHx of Paroxysmal A. fib on Coumadin, Chronic LE DVT, Chronic lymphedema, Hx of thrombophlebitis, Hx of CVA with residual memory deficits, Possible Dementia, Hx of Breast Cancer (s/p lumpectomy and chemotherapy), DLP and GERD who presented to the emergency room brought in by EMS after she was found down. Patient was unresponsive upon arrival to emergency room, and her has provided details of the history. has reported that yesterday (11/21) they went to bed at 10 PM. At 3 AM he awoke in and found his in the bathroom unresponsive wedged between the toilet and shower. EMS was called and patient was transported to the hospital. Upon arrival to ER physical has revealed no movement of the left side of her body, lack of a gag reflex and no purposeful movements and no ability to follow commands. Imaging has revealed a very significant right MCA territory infarct. Findings were discussed with family and they have ultimately decided to proceed with comfort measures at this time. Hospitalist service was contacted for further evaluation. Currently, I have discussed the poor prognosis with the family and have reiterated findings on imaging. At this time, they have indicated that she is a lready a DO NOT RESUSCITATE and DO NOT INTUBATE and they would like to proceed with COMFORT MEASURES ONLY. Have discussed with him that we will stop blood work, vital signs and imaging and focus strictly on comfort. We have discussed feedings and will not be proceeding with any IV based nutritional support. MOLST form has been updated to reflect this change in status. Home Medications Scheduled Ammonium Lactate (Ammonium Lactate) 12% Cream..g., 1 DOSE TOP BID, (Reported) APPLY TO BOTH FEET Calcium Carbonate/Vitamin D3 (Calcium 600-Vit D3 800 Tablet) 1 Tab Tab, 1 TAB PO DAILY, (Reported) Cholecalciferol (Vitamin D3) (Vitamin D3) 5,000 Unit Tab.rapdis, 5,000 UNIT PO QPM, (Reported) Citalopram Hydrobromide (Celexa) 20 Mg Tablet, 20 MG PO DAILY, (Reported) Fluticasone/Vilanterol (Breo Ellipta 100-25 Mcg INH) 1 Each Blst.w.dev, 1 PUFF INH DAILY, (Reported) Glipizide (Glipizide) 5 Mg Tablet, 2.5 MG PO DAILY, (Reported) Magnesium Oxide (Magnesium Oxide) 400 Mg Tablet, 400 MG PO BID, (Reported) Metformin HCl (Metformin HCl) 500 Mg Tab, 500 MG PO BID, (Reported) AT 0600 AND 1800. Potassium Chloride (Klor-Con M20) 20 Meq Tabcr, 20 MEQ PO DAILY, (Reported) Pravastatin Sodium (Pravastatin Sodium) 80 Mg Tablet, 80 MG PO DAILY, (Reported) Torsemide (Torsemide) 100 Mg Tablet, 100 MG PO DAILY, (Reported) TAKES AT 1500 Vitamin B Complex (Vitamin B Complex) 1 Each Tablet, 1 TAB PO DAILY, (Reported) Warfarin Sodium (Warfarin Sodium) 5 Mg Tablet, 5 MG PO 2XWK, (Reported) SATURDAY AND SATURDAY Warfarin Sodium (Warfarin Sodium) 2.5 Mg Tablet, 2.5 MG PO 5XW, (Reported) SATURDAY, SATURDAY, SATURDAY, SATURDAY AND SATURDAY Zinc (Zinc) 50 Mg Tablet, 50 MG PO DAILY, (Reported) Scheduled PRN Acetaminophen (Tylenol Extra Strength) 500 Mg Tablet, 1,000 MG PO TID PRN for PAIN, (Reported) Albuterol Sulfate (Proair Hfa) 108 Mcg/Act Aer, 2 PUFF INH Q4H PRN for SHORTNESS OF BREATH, (Reported) Allergies Coded Allergies: No Known Allergies (Unverified , 06/15/19) Past Medical History Medical History Chronic lymphedema Thrombophlebitis Chronic lower extremity DVT Paroxysmal atrial fibrillation on Coumadin History of breast cancer, status post chemotherapy History of CVA with residual memory deficits GERD DLP Surgical History Information has been obtained from medical record given that patient is unresponsive Hysterectomy Appendectomy Laparoscopic cholecystectomy Colonoscopy Incisional hernia repair Right breast lumpectomy with lymph node dissection and chemotherapy Family History - Patients family history has been reviewed and is noncontributory to the current hospitalization Social History - Unable to be obtained, as patient is unresponsive - Review of records does indicate she was a prior smoker, enies the use of alcohol or drugs - Lives with her - Has had a most form completed that reports DNR and DNI and signed by her Review of Systems Other systems Review of systems is unable to be completed given that patient is unresponsive Vital Signs - Vitals: BP 112/53, HR 59, RR 16, Sat 96%NC4L, Temp 98.1F - General: Lying in bed, appears comfortable without any evidence of pain, nonresponsive, respirations are shallow - Full physical examination has not been completed Laboratory Data Labs 24H Laboratory Tests 2 11/22/19 03:31: POC pH (Misc Panel) 7.275L, POC Base Excess (Misc Panel) 1.0, POC Saturated Percent O2 (Misc) 99H, POC pO2 (Misc Panel) 159.0H, POC pCO2 (Misc Panel) 59.8H, POC HCO3 (Misc Panel) 27.8H, POC Total CO2 (Misc Panel) 30.0H 11/22/19 03:39: Immature Granulocyte % (Auto) 0.6, Neutrophils (%) (Auto) 70.1H, Lymphocytes (%) (Auto) 21.6L, Monocytes (%) (Auto) 6.3H, Eosinophils (%) (Auto) 1.2, Basophils (%) (Auto) 0.2, Neutrophils # (Auto) 6.8, Lymphocytes # (Auto) 2.1, Monocytes # (Auto) 0.6, Eosinophils # (Auto) 0.1, Basophils # (Auto) 0.0, Nucleated Red Blood Cells % (auto) 0.0, Prothrombin Time 15.5H, Prothromb Time International Ratio 1.26, Activated Partial Thromboplast Time 22.5L, Anion Gap 13, Glomerular Filtration Rate 42.0, Osmolality 310H, Lactic Acid Level 6.5*H, Calcium Level 8.3L, Total Bilirubin 0.3, Direct Bilirubin 0.1, Aspartate Amino Transf (AST/SGOT) 79H, Alanine Aminotransferase (ALT/SGPT) 48, Alkaline Phosphatase 122H, Total Creatine Kinase 90, Creatine Kinase MB 1.8, Creatine Kinase MB Relative Index 2.00, Troponin I 0.04, Total Protein 7.3, Albumin 3.2, Albumin/Globulin Ratio 0.78L, Thyroid Stimulating Hormone (TSH) 5.840H, Salicylates Level < 1.7L, Acetaminophen Level < 2.0L, Ethyl Alcohol Level 0.003 11/22/19 03:40: POC Total CO2 (Misc Panel) 30.0H, POC Glucose (Misc Panel) 362H, POC Sodium (Misc Panel) 135L, POC Potassium (Misc Panel) 3.8, POC Chloride (Misc Panel) 93L, POC Blood Urea Nitrogen (Misc Panel 29H, POC Ionized Calcium (Misc Panel) 4.2L, POC Creatinine (Misc Panel) 1.3, POC Hematocrit (Misc Panel) 42.0 11/22/19 03:58: Urine Color YELLOW, Urine Appearance CLEAR, Urine pH 7.0, Urine Specific [place] 1.008, Urine Protein 1+H, Urine Glucose (UA) 1+H, Urine Ketones NEGATIVE, Urine Blood NEGATIVE, Urine Nitrite NEGATIVE, Urine Bilirubin NEGATIVE, Urine Urobilinogen 0.2, Urine Leukocyte Esterase NEGATIVE, Urine WBC (Auto) 2, Urine RBC (Auto) 1, Urine Hyaline Casts (Auto) 5, Urine Bacteria (Auto) NEGATIVE, Urine Squamous Epithelial Cells 0, Urine Sperm (Auto) , Urine Opiates Screen NEGATIVE, Urine Methadone Screen NEGATIVE, Urine Barbiturates Screen NEGATIVE, Urine Phencyclidine Screen NEGATIVE, Urine Amphetamines Screen NEGATIVE, Urine Benzodiazepines Screen NEGATIVE, Urine Cocaine Metabolite Screen NEGATIVE, Urine Cannabinoids Screen NEGATIVE CBC/BMP Laboratory Tests 11/22/19 03:39 Plan / VTE VTE Prophylaxis Ordered?: No Plan Plan Assessment: 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 Lactic acidosis INR subtherapeutic Chronic lymphedema Thrombophlebitis Chronic lower extremity DVT Paroxysmal atrial fibrillation on Coumadin History of breast cancer s/p lumpectomy and chemotherapy History of CVA with residual memory deficits Functional quadriplegia GERD DLP Plan: - After discussion of findings between ER provider and family, they have agreed that comfort measures is the best option at this point - I have discussed with the family; and two daughters about the patients poor prognosis given the large right middle cerebral artery infarction; again, they have confirmed to me that they would like to proceed with comfort measures - We will stop blood work, imaging and vital signs - Nonessential medications will not be continued - Will continue with medications for comfort only; morphine, Ativan and scopolamine patches as needed for comfort - Patient will be transitioned to the medical surgical floor and hospice will be called on consultation for further support - Patients family is at the bedside and I have addressed all their questions and concerns - I will regenerate to Dr. Mert Mercado to advise him of this update / clinical status change KESHA DEL ROSARIO MD Nov 22, 2019 05:37
[2019-11-22] MEDS: MORPHINE 2 MG/ML 1ML VIAL (J2270) IV PRN ×3 (05:40→11:03)
--- NOTE | 2019-11-22 08:20 | REP ---
Portable chest x-ray: Single view. History: Altered mental status. Comparison study: June 30, 2019. Findings: Monitoring electrodes are seen. There are surgical clips in right axillary soft tissues. Right hemidiaphragm is somewhat elevated. Mild cardiomegaly is again observed. No infiltrate is seen. Electronically Signed by Carlton Raymond MD 11/22/2019 08:12 A
[2019-11-22] MEDS ORDERED: ACETAMINOPHEN *IV* 1,000 MG in IV 1 EA IV ONE (11:15)
--- NOTE | 2019-11-22 11:47 | REP ---
Left shoulder: Single view. History: "/shoulder." Findings: There is diffuse osteopenia. The left glenohumeral and acromioclavicular joints are normally aligned on this single AP portable exam. No fractures seen. No erosive changes seen. Electronically Signed by Carlotn Raymond MD 11/22/2019 11:39 A
[2019-11-22] MEDS ORDERED: NS 1,000 ML IV SCH (13:00)
[2019-11-22] MEDS ORDERED: ASPIRIN 300 MG SUPP PR SCH (13:00)
[2019-11-22] MEDS: NS 1,000 ML IV SCH (13:48)
[2019-11-22] MEDS ORDERED: ASPIRIN 300 MG SUPP PR ONE (14:00)
--- NOTE | 2019-11-22 14:22 | IPNPDOC ---
Text Note Date of Service The patient was seen on 11/22/19. NOTE TIME OF SERVICE 10:21 AM Ms. 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 SUBJECTIVE: This morning the patient's family reported that she has been making thumbs up sign when asked pointed questions, and seems to be aware what's going on. They requested a neurology consult for second opinion. OBJECTIVE: Temperature 98.1, pulse 59, respiratory rate 16, blood pressure 112/53, pulse oximetry 96% on 4 L GEN: Obese, does not appear to be in apparent distress HEENT: Her eyes are closed. Her tongue is deviated to the right. She is unable to open her eyes or move her tongue when asked to do so CVS: RRR/NMRG LUNGS: Rhonchorous breath sounds ABDOMEN: Obese. Bowel sounds hypoactive MSK/EXTREMITIES: She is able to squeeze my fingers with her right hand. She is not making a thumbs up sign for me. NEURO: Not opening her eyes/tongue deviated to the right side and slightly protruding out of her mouth PSYCH: Lethargic/able to assess mental status because the patient is not verbal Labs: See below ASSESEMENT & PLAN: 1. Acute large right MCA CVA Cause to be determined. Risk factors include paroxysmal atrial fibrillation, diabetes, and dyslipidemia. She has had a CVA in the past Plan: Continue comfort measures for now/consult neurology ( per discussion with Dr. Evans renal will order MRI of the brain, order aspirin 325 mg per rectum and start IV fluids, we will hold off the Ativan and morphine, so we can better assess her mental status once she is no longer sedated ) /IV, Tylenol for pain 2. Lactic acidosis. 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 Left shoulder bruise Plan: Lidocaine patch/per family's request follow-up x-ray of the shoulder 4. NIDD / Paroxysmal atrial fibrillation / hx of left lower extremity DVT Plan: Conservative measures because the patient is VOIP NETWORK TECHNICIAN DVT PX none well VOIP NETWORK TECHNICIAN status DISPO : Pending clinical course VS,Fishbone, I+O VS, Fishbone, I+O Laboratory Tests 11/22/19 03:39 Vital Signs Date Time Temp Pulse Resp B/P (MAP) Pulse Ox O2 Delivery O2 Flow Rate FiO2 11/22/19 08:00 4.0 11/22/19 04:45 59 16 96 Nasal Cannula 11/22/19 04:31 112/53 (72) 11/22/19 03:19 98.1 I&O- Last 24 Hours up to 6 AM 11/22/19 06:00 Intake Total 1000 ml Output Total 0 ml Balance 1000 ml NANCY MCCONNELL MD Nov 22, 2019 14:22
[2019-11-22] MEDS ORDERED: ACETAMINOPHEN IV PRN (15:00)
[2019-11-22] MEDS ORDERED: DILUENT IV PRN (15:00)
[2019-11-22 17:55] VITALS: BP 126/60
[2019-11-22] MEDS: ONDANSETRON 4MG/2ML VIAL (J2405) IV SCH (20:03)
[2019-11-22 20:44] VITALS: BP 161/75
[2019-11-22] MEDS ORDERED: **NOTE PATIENT COMMENT** MISC XX SCH (21:00)
[2019-11-22] MEDS: LORazepam 2 MG/ML VIAL (J2060) IV PRN (22:39)
[2019-11-23 02:00] VITALS: BP 133/67
[2019-11-23] MEDS: NS 1,000 ML IV SCH (02:00)
[2019-11-23] MEDS: ONDANSETRON 4MG/2ML VIAL (J2405) IV SCH ×3 (02:01→14:00)
--- NOTE | 2019-11-23 02:17 | IPNPDOC ---
Text Note Date of Service The patient was seen on 11/23/19. NOTE Interval update - I was called by nursing staff to evaluate patient after her breathing had declined around 830PM - Patient's family members were present at the bedside - Case discussed with Neurology about prognosis - I reiterated the findings of imaging to the family - Family has indicated that she will remain DO NOT RESUSCITATE, DO NOT INTUBATE and did not want to have a feeding tube placed - Again family has asked for Morphine and Ativan to be reinstated, given that she continues to deteriorate - Patient will remain as comfortable measures at this time VS,Migelbone, I+O VS, Fishbone, I+O Laboratory Tests 11/22/19 03:39 Vital Signs Date Time Temp Pulse Resp B/P (MAP) Pulse Ox O2 Delivery O2 Flow Rate FiO2 11/22/19 21:15 4.0 11/22/19 20:44 98.9 84 12 161/75 (103) 93 Nasal Cannula I&O- Last 24 Hours up to 6 AM 11/23/19 06:00 Intake Total 0 ml Output Total 950 ml Balance -950 ml KESHA DEL ROSARIO MD Nov 23, 2019 02:17
[2019-11-23 06:00] VITALS: BP 136/65
--- NOTE | 2019-11-23 07:13 | REP ---
MRI brain without contrast: History: Possible right middle cerebral artery stroke. Comparison head CT study is from earlier today. Technique: Axial and sagittal imaging planes are utilized for T1 and T2-weighted scans. Sequences include spin-echo, fast spin echo, FLAIR, and diffusion weighted sequences. MRI findings: No bony calvarial lesion is seen. Craniocervical junction and upper cervical cord are unremarkable. There is no MR evidence of significant paranasal sinus disease. No intraorbital abnormality is seen. There is a extensive pattern of T2 hyperintensity throughout the right frontal, parietal, and temporal lobes with hyperintensity involving the oquendo matter and underlying white matter. On diffusion weighted scans there is restricted diffusion throughout the distribution of the right middle cerebral artery territory. The findings consistent with acute infarction. The right basal ganglia is involved as well extensively. There is no evidence of intracranial hemorrhage. There is some mass effect from edema with slight shift of the midline to the left in the subfalcine region. On gradient echo images, there is low signal intensity in the basal ganglia region on the right consistent with some degree of petechial hemorrhagic change. No thomas hematoma. Impression: Findings consistent with acute infarction right middle cerebral artery territory with involvement of the right frontal lobe, right parietal lobe, and right temporal lobe. There are petechial hemorrhagic infarction changes involving the right basal ganglia. There is mild diffuse edema associated with this. No thomas hematoma. Electronically Signed by Carlton Raymond MD 11/23/2019 07:48 A
[2019-11-23] MEDS ORDERED: ASPIRIN 300 MG SUPP PR SCH (09:00)
[2019-11-23] MEDS ORDERED: LIDOCAINE 5% (LIDODERM) PATCH TD SCH (09:00)
[2019-11-23] MEDS: LORazepam 2 MG/ML VIAL (J2060) IV PRN ×3 (09:33→13:46)
[2019-11-23] MEDS: MORPHINE 2 MG/ML 1ML VIAL (J2270) IV PRN ×3 (09:37→13:46)
--- NOTE | 2019-11-23 10:45 | IPNPDOC ---
Text Note Date of Service The patient was seen on 11/23/19. NOTE Ms. Dent is a 89-year-old female with past medical history of NIDDM, paroxysmal atrial fibrillation, left lower extremity DVT, history of CVA with residual memory deficits, history of breast cancer, chronic lymphedema, dyslipidemia and GERD who was admitted after being diagnosed with a right MCA CVA; the patient's family initially chose [facility] with DNR/DNI status. SUBJECTIVE: Overnight and was reported patient was having decreased breathing. Overnight physician evaluated the patient, as well as discussed with the family who indicated that the patient will remain DO NOT INTUBATE, DO NOT RESUSCITATE, to place patient on comfort measures; they requested discontinuing the CT of the head that was previously ordered for this morning. OBJECTIVE: VITALS: See Below GENERAL APPEARANCE: Obtunded & unresponsive LUNGS: Clear to auscultation bilaterally. HEART: Normal S1, S2. No murmurs, no rubs, no gallops Labs: See below ASSESSMENT & PLAN: 1. Acute large right MCA CVA Plan: [facility] [employer] w morphine, ativan and scopolamine, PFS & Hospice consults DVT PX n/a DISPO:Pending hospice Evaluation VS,Fishbone, I+O VS, Fishbone, I+O Vital Signs Date Time Temp Pulse Resp B/P (MAP) Pulse Ox O2 Delivery O2 Flow Rate FiO2 11/23/19 09:47 20 11/23/19 06:00 99.8 81 136/65 (88) 78 Nasal Cannula 2.0 I&O- Last 24 Hours up to 6 AM 11/23/19 06:00 Intake Total 900 ml Output Total 1550 ml Balance -650 ml GME ATTESTATION GME ATTESTATION My faculty preceptor for this patient encounter was physically present during the encounter and was fully available. All aspects of the patient interview, examination, medical decision making process, and medical care plan development were reviewed and approved by the faculty preceptor. The faculty preceptor is aware and concurs with the plan as stated in the body of this note and will attest to such by his/her cosignature. ATTENDING NOTE I examined the patient at 8:55 AM, edited and reviewed 's note and agree with the findings as documented MONICA BACA DO Nov 23, 2019 10:45 NANCY MCCONNELL MD Nov 23, 2019 14:54
[2019-11-23] MEDS ORDERED: MORPHINE SULF IN 0.9% NACL 100 MG in IV 1 EA IV SCH ×2 (15:00)
--- NOTE | 2019-11-23 16:34 | DS.PDOC ---
Discharge Summary General Date of Admission Nov 22, 2019 at 03:16 Date of Discharge November 23 2019 Attending Physician: NANCY MCCONNELL MD Specialist/Consultants Involve: JASSI FRAZIER MD Discharge Summary PROCEDURES PERFORMED DURING STAY: [None]. ADMITTING DIAGNOSES: 1. Large right MCA CVA DISCHARGE DIAGNOSES: 1. 1. Large right MCA CVA COMPLICATIONS/CHIEF COMPLAINT: Cva, Public Space Attendant Only Status. HISTORY OF PRESENT ILLNESS: Per HPI this is " an 89-year-old female with a PMHx of Paroxysmal A. fib on Coumadin, Chronic LE DVT, Chronic lymphedema, Hx of thrombophlebitis, Hx of CVA with residual memory deficits, Possible Dementia, Hx of Breast Cancer (s/p lumpectomy and chemotherapy), DLP and GERD who presented to the emergency room brought in by EMS after she was found down. Patient was unresponsive upon arrival to emergency room, and her has provided details of the history. has reported that yesterday (11/21) they went to bed at 10 PM. At 3 AM he awoke in and found his in the bathroom unresponsive wedged between the toilet and shower. EMS was called and patient was transported to the hospital. Upon arrival to ER physical has revealed no movement of the left side of her body, lack of a gag reflex and no purposeful movements and no ability to follow commands. Imaging has revealed a very significant right MCA territory infarct. Findings were discussed with family and they have ultimately decided to proceed with comfort measures at this time. Hospitalist service was contacted for further evaluation. Currently, I have discussed the poor prognosis with the family and have reiterated findings on imaging. At this time, they have indicated that she is already a DO NOT RESUSCITATE and DO NOT INTUBATE and they would like to proceed with COMFORT MEASURES ONLY. Have discussed with him that we will stop blood work, vital signs and imaging and focus strictly on comfort. We have discussed feedings and will not be proceeding with any IV based nutritional support. MOLST form has been updated to reflect this change in status." HOSPITAL COURSE: The patient was admitted to the hospital under comfort measures status. The family requested a neurology consult, MRI of the brain was done which confirmed the findings of the CT scan. The patient continued to decline and on November 23 at 1559. The suspected cause of was respiratory arrest. DISCHARGE MEDICATIONS: Please see below. ALLERGIES: Please see below. PHYSICAL EXAMINATION ON DISCHARGE: VITAL SIGNS: Please see below. GENERAL: Unresponsive LABORATORY DATA: Please see below. IMAGING: See EMR TIME SPENT ON DISCHARGE: Approximately 20 minutes. Vital Signs/I&Os Vital Signs Date Time Temp Pulse Resp B/P (MAP) Pulse Ox O2 Delivery O2 Flow Rate FiO2 11/23/19 13:56 22 11/23/19 06:00 99.8 81 136/65 (88) 78 Nasal Cannula 2.0 I&O- Last 24 Hours up to 6 AM 11/23/19 06:00 Intake Total 900 ml Output Total 1550 ml Balance -650 ml Discharge Medications Scheduled Ammonium Lactate (Ammonium Lactate) 12% Cream..g., 1 DOSE TOP BID, (Reported) APPLY TO BOTH FEET Calcium Carbonate/Vitamin D3 (Calcium 600-Vit D3 800 Tablet) 1 Tab Tab, 1 TAB PO DAILY, (Reported) Cholecalciferol (Vitamin D3) (Vitamin D3) 5,000 Unit Tab.rapdis, 5,000 UNIT PO QPM, (Reported) Citalopram Hydrobromide (Celexa) 20 Mg Tablet, 20 MG PO DAILY, (Reported) Fluticasone/Vilanterol (Breo Ellipta 100-25 Mcg INH) 1 Each Blst.w.dev, 1 PUFF INH DAILY, (Reported) Glipizide (Glipizide) 5 Mg Tablet, 2.5 MG PO DAILY, (Reported) Magnesium Oxide (Magnesium Oxide) 400 Mg Tablet, 400 MG PO BID, (Reported) Metformin HCl (Metformin HCl) 500 Mg Tab, 500 MG PO BID, (Reported) AT 0600 AND 1800. Potassium Chloride (Klor-Con M20) 20 Meq Tabcr, 20 MEQ PO DAILY, (Reported) Pravastatin Sodium (Pravastatin Sodium) 80 Mg Tablet, 80 MG PO DAILY, (Reported) Torsemide (Torsemide) 100 Mg Tablet, 100 MG PO DAILY, (Reported) TAKES AT 1500 Vitamin B Complex (Vitamin B Complex) 1 Each Tablet, 1 TAB PO DAILY, (Reported) Warfarin Sodium (Warfarin Sodium) 5 Mg Tablet, 5 MG PO 2XWK, (Reported) SATURDAY AND SATURDAY Warfarin Sodium (Warfarin Sodium) 2.5 Mg Tablet, 2.5 MG PO 5XW, (Reported) SATURDAY, SATURDAY, SATURDAY, SATURDAY AND SATURDAY Zinc (Zinc) 50 Mg Tablet, 50 MG PO DAILY, (Reported) Scheduled PRN Acetaminophen (Tylenol Extra Strength) 500 Mg Tablet, 1,000 MG PO TID PRN for PAIN, (Reported) Albuterol Sulfate (Proair Hfa) 108 Mcg/Act Aer, 2 PUFF INH Q4H PRN for SHORTNESS OF BREATH, (Reported) Allergies Coded Allergies: No Known Allergies (Unverified , 06/15/19) NANCY MCCONNLEL MD Nov 23, 2019 16:34
--- NOTE | 2019-11-23 17:05 | CR ---
DATE OF CONSULTATION: 11/23/2019 REFERRING PROVIDER: Dr. Whalen REASON FOR CONSULTATION: Large right MCA stroke. Second opinion evaluation. The patient is an 89-year-old female who has past medical history significant for paroxysmal atrial fibrillation on Coumadin. The patient presented to [facility] with a subtherapeutic INR with dense left hemiparesis. CT scan of the brain was noted to demonstrate right large MCA territorial infarct with loss of oquendo and white matter differentiation. The patient had an INR which was subtherapeutic. The patient was initially made comfort care due to the significant deficits. The patient not being able to respond and with left-sided body at all. She was not able to purposely move the right side of the body of either. Overnight the family noted that the patient was purposely moving and answering questions with her hands with a thumbs-up she was able to communicate somewhat she was given morphine and Ativan for her comfort. This may caused her to have some degree of significant sedation masking her neurological symptoms. An MRI of the brain was recommended to be completed after having a long family discussion. The family wanted a second opinion regarding her prognosis and were considering starting medical management instead of just comfort measures. In light of this discussion, the patient was given aspirin 310 mg as needed and started on IV fluids. Ativan and morphine were held. The patient subsequently was asked to have an MRI of the brain which unfortunately did reveal an extremely large right cerebral hemispheric stroke in the entire MCA distribution suggesting a large vessel occlusion. The patient was having some difficulty with breathing. She was already made DNR/DNI she would not wish to have any form of feeding tube placement. The patient unfortunately had respiratory compromise difficulty with breathing at night agonal breathing noted. The admitting provider was again asked to come and see the patient family at that point decided to make the patient comfort measures and this point the patient remains on comfort measures with a very poor prognosis. REVIEW OF SYSTEMS: Unobtainable due to the patient having difficulty communicating. She is quite obtunded on both morphine and Ativan. The patient has a dense left-sided hemiparesis. She purposely moves the right arm and right leg. REVIEW OF SYSTEMS: Unobtainable. PHYSICAL EXAMINATION: Blood pressure 112/53, pulse rate 59, respiratory rate 16, temperature 98.1 degrees Fahrenheit, her current height 5 feet 3 inches, currently 84 kg 96% oxygen saturation on room air. Lactic acid upon admission was 6.5. The patient is unable to speak. Babinski signs appear to be mute. The patient withdraws to noxious stimuli in the right foot but not the left and withdraws to tactile stimulation in the right hand but not the left. She purposely moves the right hand to her facet and does not move the left at all. Limited exam due to current cognitive status. ASSESSMENT: 1. 89-year-old female with history of paroxysmal atrial fibrillation, presenting with subtherapeutic INR resulting in a large vessel right MCA artery occlusion with a devastating stroke with significant edema, mass effect. At the present time the patient has a significant poor prognosis and the family wants to pursue comfort measures only which is understandable at this time. No further testing will be completed. Aspirin will be discontinued. Comfort medications as per primary team.
== END 2019-11-23 15:59 | disposition expired ==
LOC: M ED 03:15 → M ED INP 03:16 → ENRESERVTM 04:52 → ENRESERVDT 04:52 → M MS5PR 05:25
PROVIDERS: ADMIT Internal Medicine; ATTEND Internal Medicine
DX: I63.511 Cerebral infarction due to unspecified occlusion or stenosis of right middle cerebral artery (principal); Z51.5 Encounter for palliative care; Z66 Do not resuscitate; R79.1 Abnormal coagulation profile; I48.0 Paroxysmal atrial fibrillation; E11.9 Type 2 diabetes mellitus without complications; Z86.718 Personal history of other venous thrombosis and embolism; E78.5 Hyperlipidemia, unspecified; K21.9 Gastro-esophageal reflux disease without esophagitis; Z79.899 Other long term (current) drug therapy; Z79.51 Long term (current) use of inhaled steroids; Z79.01 Long term (current) use of anticoagulants; Z79.84 Long term (current) use of oral hypoglycemic drugs
CPT/HCPCS: 36600; 51702; 70450; 70551; 71045; 73020; 80047; 80048; 80076; 80307; 82550; 82553; 82803; 83605; 83930; 84443; 84484; 85025; 85610; 85730; 93041; 96361; 96374; 96375; 96376; 99285; G0378; G0480; J2060; J2270; J2405